=== PATIENT | male | born 1990 | race Caucasian/White ===

== ENCOUNTER 2020-09-23 17:27 | Emergency (ER) | payer OTHER, SELFPAY ==
[2020-09-23 17:35] VITALS: BP 148/86; PULSE 82; RESP 16; TEMP 36.8; O2SAT 100
--- NOTE | 2020-09-23 17:40 | ED.ABDPAIN ---
HPI - Abdominal Pain General Chief Complaint: Nausea/Vomiting/Diarrhea Stated Complaint: stomach problems Time Seen by Provider: 09/23/20 17:40 Source: patient and RN notes reviewed Mode of arrival: ambulatory Limitations: no limitations History of Present Illness HPI narrative: 30-year-old male presents to the [facility] with complaints of nausea vomiting diarrhea after eating at [employer] on Wednesday, 3 days ago. Has not been able to keep any food down. Able to do small sips of fluids. Patient states that he was able to drink a red bull prior to arrival Related Data Allergies Allergy/AdvReac Type Severity Reaction Status Date / Time No Known Allergies Allergy Unknown Verified 09/23/20 17:48 Review of Systems Review of Systems: Narrative: CONSTITUTIONAL: Denies fever, chills, or sweats. EYES: Denies visual changes, redness, or discharge. ENT: Denies rhinorrhea, congestion, sore throat, or otalgia. CARDIOVASCULAR: Denies chest pain, palpitations, or edema. RESPIRATORY: Denies cough or dyspnea. GASTROINTESTINAL: Denies abdominal pain. Reports nausea, vomiting, or diarrhea x3 days. GENITOURINARY: Denies dysuria or hematuria. SKIN: Denies rash or itching. MUSCULOSKELETAL: Denies back pain, joint pain, or myalgia. NEUROLOGIC: Denies headache, numbness, or weakness. PSYCHIATRIC: Denies anxiety or depression. All other systems reviewed are negative, except as documented in HPI. PMFSH Comments Patient denies any significant past medical or surgical history. At the time of my signature, I reviewed and agree with the nursing past medical, surgical, social, and family history. There is no relevant family history pertinent to the patient complaint. Exam Narrative: Exam Narrative: GENERAL: This is a well-nourished, well-developed patient, in no apparent distress. HEAD: normocephalic, atraumatic. EYES: PERRL. Sclera clear/white. Vision is grossly intact. EARS: External ears normal, auditory canals clear and without drainage, TMs normal without perforation. Hearing grossly intact. NOSE: External nose normal with no obvious nasal discharge, nares without redness, no rhinorrhea. THROAT: Mucous membranes moist, posterior pharynx clear. NECK: Neck supple, non-tender without lymphadenopathy, masses or thyromegaly. CARDIOVASCULAR: Regular rate and rhythm without murmurs, gallops, or rubs. RESPIRATORY: Clear to auscultation. Breath sounds equal bilaterally. No wheezes, rales, or rhonchi. GASTROINTESTINAL: Abdomen soft, non-tender, nondistended. Bowel sounds are hyper active. No hepato-splenomegaly, or palpable masses. No guarding. SKIN: warm, Dry, intact with no suspicious lesions or rash, good texture and turgor. NEURO: awake, alert, and oriented to person, place and time. There were no obvious focal neurologic abnormalities. EXTREMITIES: No joint tenderness, effusion, or edema noted. BACK: Nontender without deformity. Course Course Emergency Course: 1837, patient reevaluated, states he feels much better. Able to drink the entire bottle of water without issue. No vomiting. Vital Signs Vital signs: Vital Signs Temperature 98.3 F 09/23/20 17:35 Pulse Rate 82 09/23/20 17:35 Respiratory Rate 16 09/23/20 17:35 Blood Pressure 148/86 H 09/23/20 17:35 Pulse Oximetry 100 09/23/20 17:35 Temperature 98.3 F 09/23/20 17:35 Pulse Rate 82 09/23/20 17:35 Respiratory Rate 16 09/23/20 17:35 Blood Pressure 148/86 H 09/23/20 17:35 Pulse Oximetry 100 09/23/20 17:35 Reviewed, blood pressure mildly elevated. Discussed importance of following up with a primary care provider MDM - Abdominal Pain MDM Narrative Medical decision making narrative: Discharge instructions reviewed with patient, as well as provided in writing per nursing staff. The instructions also include specific and strict return/GO TO THE ER as well as f/u information. All questions have been answered, and the patient deny any further questions with discharge
[2020-09-23] MEDS: ONDANSETRON HCL ODT 4 MG TABLET 8 MG SUBLINGUAL (18:00)
[2020-09-24 20:31] LABS: SARS-CoV-2 RNA PCR Negative
== END 2020-09-23 18:45 | disposition home or self-care (01) ==
PROVIDERS: Emergency Provider Nurse Practitioner
DX: K21.9 Gastro-esophageal reflux disease without esophagitis (principal); Z20.822 Contact with and (suspected) exposure to COVID-19; J45.909 Unspecified asthma, uncomplicated
CPT/HCPCS: 99203; A9270; C9803; G0463; U0003; U0005

== ENCOUNTER 2021-01-31 08:12 | Emergency (ER) | payer OTHER, SELFPAY ==
[2021-01-31 08:23] VITALS: BP 130/79; PULSE 112; RESP 16; TEMP 37.2; O2SAT 98
--- NOTE | 2021-01-31 08:32 | ED.EYEPROB ---
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 Patient states 2 days ago he started with burning to his left eye and a bloodshot area to his left eye. Patient denies any vision problems. chief complaint: eye redness Related Data Home Medications Medication Instructions Recorded Confirmed No Home Medications 01/31/21 01/31/21 Allergies Allergy/AdvReac Type Severity Reaction Status Date / Time No Known Allergies Allergy Unknown Verified 01/31/21 08:37 Review of Systems Review of Systems: CONSTITUTIONAL: Denies fever, chills, or sweats. EYES: Denies visual changes, redness, or discharge. ENT: Denies rhinorrhea, congestion, sore throat, or otalgia. CARDIOVASCULAR: Denies chest pain, palpitations, or edema. RESPIRATORY: Denies cough or dyspnea. GASTROINTESTINAL: Denies abdominal pain, nausea, vomiting, or diarrhea. GENITOURINARY: Denies dysuria or hematuria. SKIN: Denies rash or itching. MUSCULOSKELETAL: Denies back pain, joint pain, or myalgia. NEUROLOGIC: Denies headache, numbness, or weakness. PSYCHIATRIC: Denies anxiety or depression. PMFSH Comments At time of signature, agree with nursing past medical, surgical, social and family history. There is no relevant family history pertinent to the presenting complaint Exam Narrative: GENERAL: Well-appearing, well-nourished, and in no acute distress. HEAD: Normocephalic, atraumatic. EYES: PERRLA and EOMI. ENT: Nares clear, no rhinorrhea or epistaxis. Mucous membranes moist. NECK: Supple. CHEST: Clear to auscultation. No respiratory distress. HEART: Regular rate and rhythm. No murmur heard. Normal peripheral pulses. ABDOMEN: Soft, nontender, nondistended, normal active bowel sounds. EXTREMITIES: Normal range of motion. No edema. SKIN: Warm, dry, no rash. NEURO: No focal deficits. Alert and oriented x3. Carlita Coma Scale Eye Opening: Spontaneous 4 Carlita Coma Scale Motor: Obeys Commands 6 Carlita Coma Scale Verbal: Oriented 5 Carlita Coma Scale Total 15 Eyes: Eyelids: eyelids normal (Bilateral upper and lower eyelids normal) Conjunctivae: conjunctival abnormality and other (Redness to outer area of the left conjunctive) Sclera: sclerae normal Cornea: corneas normal Pupils: Equal, round and reactive pupils present EOM: EOMs intact bilaterally Direct Ophthalmoscopy: normal light reflex Eyes/upper lids images: 1. REDNESS TO EYE Neck: Neck: normal visual inspection and no lymphadenopathy Course Vital Signs Vital signs: Vital Signs Temperature 37.2 C 01/31/21 08:23 Pulse Rate 112 H 01/31/21 08:23 Respiratory Rate 16 01/31/21 08:23 Blood Pressure 130/79 01/31/21 08:23 Pulse Oximetry 98 01/31/21 08:23 Temperature 37.2 C 01/31/21 08:23 Pulse Rate 112 H 01/31/21 08:23 Respiratory Rate 16 01/31/21 08:23 Blood Pressure 130/79 01/31/21 08:23 Pulse Oximetry 98 01/31/21 08:23 Please MARYLU schedule a followup visit with your personal physician for further evaluation and treatment. Including recheck and discussion of your blood pressure. If your symptoms persist, change or worsen significantly before you can contact your personal physician then please, without delay, go to the emergency department for further evaluation Discussed with patient hypertension. Today's blood pressure higher than recommended range. Discussed importance of follow -up with PCP and CV events related to HTN. Currently patient denies headache, vision changes, CP or shortness of breath. Critical dx considered and discussed with pt. Educated patient on red flag s/s and to go to ED if s/s occur. Discussed with
== END 2021-01-31 09:22 | disposition home or self-care (01) ==
PROVIDERS: Emergency Provider Nurse Practitioner Family
DX: S05.02XA Injury of conjunctiva and corneal abrasion without foreign body, left eye, initial encounter (principal); X58.XXXA Exposure to other specified factors, initial encounter; Y99.0 Civilian activity done for income or pay
CPT/HCPCS: 99213; A9270; G0463

== ENCOUNTER 2021-11-08 16:53 | Emergency (ER) | payer OTHER, SELFPAY ==
[2021-11-08 17:05] VITALS: BP 142/82; PULSE 106; RESP 20; TEMP 37.1; O2SAT 96
--- NOTE | 2021-11-08 17:23 | ED.URI ---
HPI - URI/Sore Throat General Chief Complaint: Upper Respiratory Infection Stated Complaint: cough nausea Time Seen by Provider: 11/08/21 17:24 Source: patient and RN notes reviewed Mode of arrival: ambulatory Limitations: no limitations History of Present Illness HPI Narrative: 31-year-old male presents with concern for 2-day history of nasal congestion, cough, nasal drainage, nausea, vomiting. Reports his children have had similar illness for about 6 days and have all tested negative for COVID. He denies any [id number] intervention. Denies shortness of breath. Reports fever yesterday. MD elicited complaint: cough and other Related Data Allergies Allergy/AdvReac Type Severity Reaction Status Date / Time No Known Allergies Allergy Unknown Verified 01/31/21 08:37 Review of Systems Review of Systems: CONSTITUTIONAL: Reports malaise. Denies chills, sweats, or fever. EYES: Denies visual changes, redness, or discharge. ENT: Reports rhinorrhea, congestion, mild sore throat. Denies sinus pain, otalgia CARDIOVASCULAR: Denies chest pain, palpitations, or edema. RESPIRATORY: Reports cough. Denies dyspnea. GASTROINTESTINAL: Denies abdominal pain, diarrhea. Reports nausea and vomiting SKIN: Denies rash or itching. MUSCULOSKELETAL: Denies myalgia. NEUROLOGIC: Denies headache. All systems reviewed & are unremarkable except as noted in HPI and below PMFSH Comments At time of signature, agree with nursing past medical, surgical, social and family history. There is no relevant family history pertinent to the presenting complaint Exam Narrative: GENERAL: Nontender and in no acute distress. HEAD: Normocephalic EYES: PERRLA, conjunctivae clear ENT: Nares clear, turbinates edematous and erythematous, clear discharge. Mucous membranes moist. TM pearly galicia with dull light reflex bilaterally; no tragal tenderness. Oropharynx not erythematous without lesions. Tonsils not enlarged and without exudate, no drooling, no hoarseness, no trismus, uvula midline. NECK: Supple. No lymphadenopathy CHEST: Clear to auscultation, breath sounds equal. No wheezing, rhonchi, rales, or stridor. No respiratory distress, speaks in full sentences. HEART: Regular rate and rhythm. No murmur heard. ABD: Soft, NABS, 1/10 tenderness in the right lower quadrant SKIN: Warm, dry, no rash. NEURO: Alert and oriented x3. PSYCH: Normal mood and affect Course Course Emergency Course: Discussed monitoring patient's right lower abdominal tenderness, advised to go to emergency room if symptoms worsen, he gets a fever, or vomiting becomes persistent. Patient is aware of diagnosis, understands and agrees to treatment plan. Anticipatory guidance given. Patient agrees to follow-up as directed and is aware of reasons to seek care at the emergency department. Portions of this record may have been created with voice recognition software Level of Care: Express Care Visit Vital Signs Vital signs: Vital Signs Temperature 98.7 F 11/08/21 17:05 Pulse Rate 106 H 11/08/21 17:05 Respiratory Rate 20 11/08/21 17:05 Blood Pressure 142/82 H 11/08/21 17:05 Pulse Oximetry 96 11/08/21 17:05 Oxygen Delivery Room Air 11/08/21 17:05 Temperature 98.7 F 11/08/21 17:05 Pulse Rate 106 H 11/08/21 17:05 Respiratory Rate 20 11/08/21 17:05 Blood Pressure 142/82 H 11/08/21 17:05 Pulse Oximetry 96 11/08/21 17:05 Oxygen Delivery Room Air 11/08/21 17:05 Reviewed. MDM - URI/Sore Throat MDM Narrative Medical decision making narrative: Differential diagnosis considered: Arango virus, strep pharyngitis, allergic rhinitis, upper respiratory tract infection, sinusitis, rhinosinusitis, nasopharyngitis. viral pharyngitis, otitis media, otitis externa, pneumonia, bronchitis, viral cough syndrome, viral syndrome, and influenza. Exam findings show no acute concerns or changes; patient is non-toxic appearing and is in no distress. Patient is appropriate for outpatient
== END 2021-11-08 18:00 | disposition home or self-care (01) ==
PROVIDERS: Emergency Provider Nurse Practitioner
DX: B34.9 Viral infection, unspecified (principal)
CPT/HCPCS: 99213; G0463

== ENCOUNTER 2022-10-29 10:28 | Emergency (ER) | payer OTHER, SELFPAY ==
--- NOTE | ~2022-10-29 | XR_ITS ---
PA, oblique, and lateral views of the left fifth finger CLINICAL HISTORY: Trauma FINDINGS: No acute fracture or dislocation seen. Joint spaces are preserved. Osseous alignment is wilton tomic. Soft tissues are unremarkable. IMPRESSION: Unremarkable exam. Reviewed, dictated and finalized at location . IMPRESSION: Unremarkable exam.
[2022-10-29 10:32] VITALS: BP 132/85; PULSE 69; RESP 20; TEMP 36.6; O2SAT 100
--- NOTE | 2022-10-29 10:32 | ED.UPPEXIN ---
HPI - Extremity Injury (Upper) General Chief Complaint: Extremity Injury, Upper Stated Complaint: left pinky injury Time Seen by Provider: 10/29/22 10:32 Source: patient and RN notes reviewed History of Present Illness HPI narrative: Patient is a 32-year-old male who presents to urgent care stating that he smashed his left pinky finger with a crowbar yesterday while at work. Patient states that it swelled up instantly. Also reports of some redness around the nail bed. No other acute complaints or injuries. No acute distress noted. Patient of care. Some parts of this dictation were generated by voice recognition software and may contain typographical and/or grammatical inaccuracies. Related Data Allergies Allergy/AdvReac Type Severity Reaction Status Date / Time No Known Allergies Allergy Verified 10/29/22 10:38 Review of Systems Review of Systems: CONSTITUTIONAL: Denies fever, chills, or sweats. EYES: Denies visual changes, redness, or discharge. ENT: Denies rhinorrhea, congestion, sore throat, or otalgia. CARDIOVASCULAR: Denies chest pain, palpitations, or edema. RESPIRATORY: Denies cough or dyspnea. GASTROINTESTINAL: Denies abdominal pain, nausea, vomiting, or diarrhea. GENITOURINARY: Denies dysuria or hematuria. SKIN: Denies rash or itching. MUSCULOSKELETAL: Reports of swelling and pain to the left pinky finger NEUROLOGIC: Denies headache, numbness, or weakness. All other systems reviewed are negative, except as documented in HPI. PMFSH Comments At the time of my signature, I reviewed and agree with the nursing past medical, surgical, social, and family history. There is no relevant family history pertinent to the patient complaint. Exam Narrative: GENERAL: This is a well-nourished, well-developed patient, in no apparent distress. HEAD: normocephalic, atraumatic. EYES: PERRL. Sclera clear/white. Vision is grossly intact. EARS: External ears normal NOSE: External nose normal with no obvious nasal discharge, nares without redness, no rhinorrhea. THROAT: Mucous membranes moist NECK: Neck supple SKIN: Erythema surrounding the nail bed of the left 5th digit, consistent with paronychia. Warm, intact with no suspicious lesions or rash, good texture and turgor. NEURO: awake, alert, and oriented to person, place and time. There were no obvious focal neurologic abnormalities. EXTREMITIES: Mild edema noted to the PIP of the left 5th digit with moderate tenderness. No ecchymosis. Range of motion not tested due to pain. Positive strong left radial pulse with capillary refill less than 2 seconds. Course Course Level of Care: Express Care Visit Vital Signs Vital signs: Vital Signs Temperature 97.8 F 10/29/22 10:32 Pulse Rate 69 10/29/22 10:32 Respiratory Rate 20 10/29/22 10:32 Blood Pressure 132/85 10/29/22 10:32 Pulse Oximetry 100 10/29/22 10:32 Oxygen Delivery Room Air 10/29/22 10:32 Temperature 97.8 F 10/29/22 10:32 Pulse Rate 69 10/29/22 10:32 Respiratory Rate 20 10/29/22 10:32 Blood Pressure 132/85 10/29/22 10:32 Pulse Oximetry 100 10/29/22 10:32 Oxygen Delivery Room Air 10/29/22 10:32 Reviewed MDM - Extremity Injury (Upper) MDM Narrative Medical decision making narrative: Reviewed x-ray results with the patient. He is aware that x-ray was negative for fracture. However, you do have an infection surrounding the nail bed. Advised patient to complete the oral antibiotic regimen as prescribed. Where the foam metal splint for protection and support. Our facility is unable to put you on any restrictions at work. If such restrictions or limitations are required he will need to follow-up with workmen's health or your primary care doctor. Follow-up with your PCP within 2-5 days or for worsening symptoms or failure to improve. Differential Diagnosis Differential diagnosis: Likely sprain and strain of wrist, fracture of wrist, finger sprain, dislocation of fin
== END 2022-10-29 11:11 | disposition home or self-care (01) ==
PROVIDERS: Emergency Provider Nurse Practitioner Family
DX: L03.012 Cellulitis of left finger (principal); S60.052A Contusion of left little finger without damage to nail, initial encounter; X58.XXXA Exposure to other specified factors, initial encounter; Y99.0 Civilian activity done for income or pay
CPT/HCPCS: 29130; 73140; 99213; G0463

== ENCOUNTER 2022-11-04 16:39 | Emergency (ER) | payer OTHER, SELFPAY ==
[2022-11-04 16:49] VITALS: BP 149/79; PULSE 95; RESP 18; TEMP 36.7; O2SAT 98
--- NOTE | 2022-11-04 16:51 | ED.NAVMDI ---
HPI - Nausea/Vomiting/Diarrhea General Chief complaint: Upper Respiratory Infection Stated complaint: nausea w/ blood Time Seen by Provider: 11/04/22 17:06 Source: patient and RN notes reviewed Mode of arrival: ambulatory Limitations: no limitations History of Present Illness HPI Narrative: 32-year-old male presents with concern for one-week history of nausea and vomiting. He reports occasionally he has a chunk of blood in his vomit. He reports he has also had nasal congestion and rhinorrhea since the symptoms started. He denies fever, aches, chills, sweats, abdominal pain. He reports he has had problems like this for about a year, however he did not have the nasal congestion rhinorrhea that time. He reports he has been on and off acid reducers which helped temporarily. He has never seen a GI doctor. He reports he is only vomiting when he tries to eat food, he can drink water without vomiting. MD elicited complaint: nausea and vomiting Related Data Home Medications Medication Instructions Recorded Confirmed amoxicillin 875 mg-potassium 1 tablet PO DAILY 11/04/22 11/04/22 clavulanate 125 mg tablet Allergies Allergy/AdvReac Type Severity Reaction Status Date / Time No Known Allergies Allergy Unknown Verified 11/04/22 17:39 Review of Systems Review of Systems: CONSTITUTIONAL: Denies malaise, chills, sweats, or fever. ENT: Reports rhinorrhea, congestion. Denies sinus pain, otalgia or sore throat. CARDIOVASCULAR: Denies chest pain, palpitations, or edema. RESPIRATORY: Denies cough or dyspnea. GASTROINTESTINAL: Denies abdominal pain, diarrhea, bloody, or mucous stools. Reports nausea and vomiting with occasional bright red blood in his vomit GENITOURINARY: Denies dysuria or hematuria. MUSCULOSKELETAL: Denies myalgia. NEUROLOGIC: Denies headache. All systems reviewed & are unremarkable except as noted in HPI and below PMFSH Comments At time of signature, agree with nursing past medical, surgical, social and family history. There is no relevant family history pertinent to the presenting complaint Exam Narrative: GENERAL: Well-appearing, well-nourished, and in no acute distress. HEAD: Normocephalic, atraumatic. EYES: PERRLA, conjunctivae clear, and EOMI. ENT: Nares clear, clear discharge. Mucous membranes moist. Oropharynx without edema, erythema, or lesions. Tonsils not enlarged and without exudate. NECK: Supple. No lymphadenopathy CHEST: Speaks in full sentences. No respiratory distress. HEART: Regular rate and rhythm. ABDOMEN: Soft, flat, nondistended, nontender. No guarding, rebound tenderness, or rigidity. No pulsatile masses. Bowel sounds present in all four quadrants. No organomegaly. Negative Smith?s sign. No periumbilical tenderness. No Supra public tenderness or distension. SKIN: Warm, dry, no rash. NEURO: Alert and oriented x3. PSYCH: Normal mood and affect Course Course Emergency Course: Patient is aware of diagnosis, understands and agrees to treatment plan. Anticipatory guidance given. Patient agrees to follow-up as directed and is aware of reasons to seek care at the emergency department. Portions of this record may have been created with voice recognition software Level of Care: Express Care Visit Vital Signs Vital signs: Reviewed. MDM - Nausea/Vomiting/Diarrhea MDM Narrative Medical decision making narrative: Exam findings show no acute concerns or changes; patient is non-toxic appearing and is in no distress. Patient is appropriate for outpatient treatment and follow-up. Critical Care Time Critical Care Time Critical Care Time: No Discharge Plan Discharge Clinical Impression: Nausea & vomiting Patient Disposition: Home, Self-Care Condition: Stable Instructions: Diet for Stomach Ulcers and Gastritis (ED), Acute Nausea and Vomiting (ED) Additional Instructions: Your rapid flu, COVID, strep tests are negative. Stay hydrated. Take small sips of fluid con
== END 2022-11-04 17:46 | disposition home or self-care (01) ==
PROVIDERS: Emergency Provider Nurse Practitioner
DX: R11.2 Nausea with vomiting, unspecified (principal); Z20.822 Contact with and (suspected) exposure to COVID-19; J45.909 Unspecified asthma, uncomplicated
CPT/HCPCS: 87081; 87426; 87804; 87880; 99213; C9803; G0463

== ENCOUNTER 2023-05-23 12:45 | Emergency (ER) | payer OTHER, SELFPAY ==
[2023-05-23 13:14] VITALS: BP 107/87; PULSE 98; RESP 20; TEMP 36.7; O2SAT 97
--- NOTE | 2023-05-23 13:18 | ED.URI ---
HPI - URI/Sore Throat General Chief Complaint: Upper Respiratory Infection Stated Complaint: vomiting for 3 days,cold History of Present Illness HPI Narrative: patient presents with cough nausea body aches and malaise. no shortness of breath and no chest pain. Related Data Home Medications Medication Instructions Recorded Confirmed albuterol sulfate 90 mcg/actuation 2 puff inhalation QID PRN sob 05/23/23 05/23/23 aerosol inhaler Allergies Allergy/AdvReac Type Severity Reaction Status Date / Time No Known Allergies Allergy Unknown Verified 05/23/23 13:11 Review of Systems Review of Systems: CONSTITUTIONAL: Denies chills, or sweats. Reports fever and generalized body aches EYES: Denies visual changes, redness, or discharge. ENT: Denies otalgia. Reports nasal congestion runny nose and sore throat CARDIOVASCULAR: Denies chest pain, palpitations, or edema. RESPIRATORY: Denies dyspnea. Reports occasional cough GASTROINTESTINAL: Denies abdominal pain, nausea, vomiting, or diarrhea. GENITOURINARY: Denies dysuria or hematuria. SKIN: Denies rash or itching. MUSCULOSKELETAL: Denies back pain, joint pain, or myalgia. Reports generalized body aches NEUROLOGIC: Denies headache, numbness, or weakness. PSYCHIATRIC: Denies anxiety or depression. PMFSH Comments At time of signature, agree with nursing past medical, surgical, social and family history. There is no relevant family history pertinent to the presenting complaint Exam Narrative: The patient is a well-developed, well-nourished in no acute distress. SKIN: Skin is warm and dry without erythema, swelling or exudate. There is good turgor. No tenting. HEAD: Atraumatic. Normocephalic. No temporal or scalp tenderness. EYES: Moist and bright. Sclera and conjunctivae normal. No discharge. PERRLA. Extraocular motions intact. Gross visual acuity intact. EARS: Pinna is normal shape and contour. Clear external auditory canals. TM pearly silver with good cone of light, no erythema or suppuration. Bilateral cerumen noted no gross hearing deficit. NOSE: pink, moist mucosa with good air movement. Clear rhinorrhea without nasal flaring. Septum midline. Mouth: moist mucous membranes. THROAT; mild erythema noted to posterior oropharynx with moderate postnasal drainage. Without exudate or ulceration.. Uvula midline. Normal movement of soft palate. NECK: Supple and nontender with full range of motion without discomfort. No meningeal signs. LUNGS: Equal and bilateral breath sounds without wheezes, rales or rhonchi. CHEST: The chest wall is without retractions or use of accessory muscles. HEART: Has a regular rate and rhythm without murmur, gallops, click or rub. ABDOMEN: Soft, nontender with positive active bowel sounds. No rebound tenderness. EXTREMITIES: Without cyanosis, clubbing or edema. Equal 2+ distal pulses and 2 second capillary refill noted. NEUROLOGIC: alert, active, . The patient moves all extremities with normal muscle strength. Normal muscle tone is noted. Normal coordination is noted. NO focal neurological findings noted. Course Course Level of Care: Express Care Visit Discharge Plan Discharge Clinical Impression: COVID-19 Patient Disposition: Home, Self-Care Condition: Stable Additional Instructions: Stay home - protect others by not exposing them. You are a public health risk if you have the flu. Don't go into public unless necessary. - Wash your hands, cover your cough/sneeze. - Stay hydrated - sip on things frequently. Water, tea, diluted lemon juice, and bone broth are all good choices. Eat if it sounds good, if not, just keep drinking - Vitamin C, Zinc, Echinacea may help in moderation. - Honey is as good as Robitussin for a cough, and has less side effects (do not give honey to babies under 2) - Tamiflu shortens influenza by an average of 23 hours (in a 7-10 day illness) and is very expensive. In [place] they don't use it anymore because it
== END 2023-05-23 13:45 | disposition home or self-care (01) ==
PROVIDERS: Emergency Provider Nurse Practitioner Family
DX: U07.1 COVID-19 (principal); J45.909 Unspecified asthma, uncomplicated
CPT/HCPCS: 87081; 87426; 87804; 87880; 99213; C9803; G0463

== ENCOUNTER 2024-04-09 16:16 | Emergency (ER) | payer OTHER, SELFPAY ==
[2024-04-09 16:20] VITALS: BP 131/80; PULSE 94; RESP 20; TEMP 36.8; O2SAT 98
--- NOTE | 2024-04-09 16:24 | ED_ITS ---
HPI - URI/Sore Throat General Chief Complaint: Upper Respiratory Infection Stated Complaint: Fever/sinus/cough Time Seen by Provider: 04/09/24 16:25 Source: patient, RN notes reviewed and old records reviewed Mode of arrival: ambulatory Limitations: no limitations History of Present Illness HPI Narrative: 34 year old male presents to [facility] care with complaints of stuffy nose, cough for 3-4 days and awoke last night at 0300 with 103F fever and had emesis X1, patient states he took his Motrin 800mg and went back to bed and awoke in a pool of sweat. Patient reports that he continues to have nasal congestion with sinus pressure and cough with no body aches. Patient reports that there have been several people out of work ill with respiratory infections and pneumonia. MD elicited complaint: fever, cough, rhinorrhea and nasal congestion Pertinent past history: asthma Onset (ago): day(s) (4 with increased symptoms since last night) Severity: moderate Description of mucous: clear Able to tolerate fluids by mouth: Yes Treatments prior to arrival: ibuprofen Related Data Home Medications Medication Instructions Recorded Confirmed albuterol sulfate 90 mcg/actuation 2 puff inhalation QID PRN sob 05/23/23 05/23/23 aerosol inhaler bupropion HCl 300 mg 24 hr tablet, mg PO 04/09/24 extended release cariprazine 1.5 mg capsule mg 04/09/24 (Vraylar) hydroxyzine pamoate 100 mg capsule mg 04/09/24 lamotrigine 200 mg tablet mg 04/09/24 mirtazapine 15 mg tablet mg 04/09/24 naltrexone 50 mg tablet mg 04/09/24 omeprazole 40 mg capsule,delayed mg 04/09/24 release pantoprazole 40 mg tablet,delayed mg PO 04/09/24 release pramipexole 0.5 mg tablet mg 04/09/24 trazodone 300 mg tablet mg 04/09/24 Allergies Allergy/AdvReac Type Severity Reaction Status Date / Time No Known Allergies Allergy Unknown Verified 05/23/23 13:11 Review of Systems Review of Systems: CONSTITUTIONAL: Reports malaise, chills, sweats, or fever. EYES: Denies visual changes, redness, or discharge. ENT: Reports rhinorrhea, congestion, sinus pain and pressure, no otalgia and mild sore throat. CARDIOVASCULAR: Denies chest pain, palpitations, or edema. RESPIRATORY: Reports cough.? Denies acute dyspnea. GASTROINTESTINAL: Denies abdominal pain, nausea, one episode of vomiting early this morning, no diarrhea SKIN: Denies rash or itching. MUSCULOSKELETAL: Denies myalgia. NEUROLOGIC: Denies headache. 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 There is no relevant family history pertinent to the presenting complaint Exam Narrative: GENERAL: Well-appearing, well-nourished, and in no acute distress. HEAD: Normocephalic EYES: PERRLA, conjunctivae clear ENT: Nares clear, turbinates edematous and erythematous, clear discharge. Mucous membranes moist. TM pearly galicia with dull light reflex bilaterally; no tragal tenderness. Oropharynx erythematous without lesions. Tonsils not enlarged and without exudate, no drooling, no hoarseness, no trismus, uvula midline. NECK: Supple. No lymphadenopathy CHEST: Clear to auscultation, breath sounds equal. No wheezing, rhonchi, rales, or stridor. No respiratory distress, speaks in full sentences,cough present SAO2 98% on room air HEART: Regular rate and rhythm. No murmur heard. SKIN: Warm, dry, no rash. NEURO: Alert and oriented x3. PSYCH: Normal mood and affect Course Course Emergency Course: Patient is aware of diagnosis, understands and agrees to treatment plan.? Anticipatory guidance given.? Patient agrees to follow-up as directed and is aware of reasons to seek care at the emergency department. Portions of this record may have been created with voice recognition software Level of Care: Express Care Visit Vital Signs Vital signs: Vital Signs Temperature 36.8 C 04/09/24 16:20 Pulse Rate 94 04/09/24 16:20 Respiratory Rate 20 04/09/24 16:20 Blood Pressure 131/80 04/09/24 16:20 Pulse Oximetry 98 04/09/24 16:20 Oxygen Delivery Room Air 04/09/24 16:20 Temperature 36.8 C 04/09/24 16:20 Pulse Rate 94 04/09/24 16:20 Respiratory Rate 20 04/09/24 16:20 Blood Pressure 131/80 04/09/24 16:20 Pulse Oximetry 98 04/09/24 16:20 Oxygen Delivery Room Air 04/09/24 16:20 Reviewed MDM - URI/Sore Throat MDM Narrative Medical decision making narrative: Differential diagnosis considered: Arango virus, strep pharyngitis, allergic rhinitis, upper respiratory tract infection, sinusitis, rhinosinusitis, nasopharyngitis. viral pharyngitis, otitis media, otitis externa, pneumonia, bronchitis, viral cough syndrome, viral syndrome, and influenza.? Exam findings show no acute concerns or changes; patient is non-toxic appearing and is in no distress.? Patient is appropriate for outpatient treatment and follow-up. Differential Diagnosis Differential diagnosis: Likely upper respiratory infection, sinusitis, viral infection, bronchitis and other (acute cough) Medical Records Attestation: I reviewed the patient's medical records. Lab Data Attestation: I reviewed the patient's lab results. Critical Care Time Critical Care Time Critical Care Time: No Discharge Plan Discharge Clinical Impression: Upper respiratory infection with cough and congestion Patient Disposition: Home, Self-Care Condition: Stable Instructions: Antibiotic Form, Upper Respiratory Infection (ED), Acute Cough (ED) Additional Instructions: Increase fluids especially juices and water Fmrl-krv-fqxydgi cough and cold medicine of your choice for your symptoms Zyrtec Claritin or Magalie daily Cough tablets as directed for cough--do not bite, chew or suck on--swallow whole Continue your inhaler/nebulizer as directed Steroids as directed--take with food heat to the face 20-30 minutes 4-6 times a day for pain Salt water gargles, throat lozenges or throat sprays as desired Antibiotic as directed--finished the medication If your symptoms persist, change or worsen significantly before you can contact your personal physician then please, without delay, go to the emergency department for further evaluation. Follow-up with PCP in 7-10 days or sooner if needed Follow up with PCP soon in regards to your blood pressure which is elevated above threshold for referral. Blood pressure above 120/80 may indicate pre- hypertension.131/80 Prescriptions: New prednisone 20 mg tablet 20 mg PO BID Qty: 10 0RF azithromycin 250 mg tablet See Rx Instructions .ROUTE .COMPLEX Qty: 6 0RF Rx Instructions: For 250 mg dose pack: take 500 mg today (day 1), then 250 mg for 4 days (days 2-5) No Action albuterol sulfate 90 mcg/actuation Hfa Aerosol Inhaler 2 puff INHALATION QID PRN (Reason: sob) hydroxyzine pamoate 100 mg capsule lamotrigine 200 mg tablet naltrexone 50 mg tablet omeprazole 40 mg capsule,delayed release(DR/EC) pramipexole 0.5 mg tablet pantoprazole 40 mg tablet,delayed release (DR/EC) PO trazodone 300 mg tablet mirtazapine 15 mg tablet bupropion HCl 300 mg tablet extended release 24 hr PO Vraylar 1.5 mg capsule Follow-up/Referrals: PHYSICIAN,DRAPERY ROD ASSEMBLER [Primary Care Provider] - Time of Disposition: 16:43 Quality Ipava Coma Scale Eyes: Open Verbal: Oriented and Alert Motor: Follows Commands Ipava Coma Total Score: 15
== END 2024-04-09 16:50 | disposition home or self-care (01) ==
PROVIDERS: Emergency Provider Registered Nurse
DX: J06.9 Acute upper respiratory infection, unspecified (principal); F17.210 Nicotine dependence, cigarettes, uncomplicated; Z79.899 Other long term (current) drug therapy
CPT/HCPCS: 99213; G0463

== ENCOUNTER 2024-06-03 11:02 | Emergency (ER) | payer OTHER, SELFPAY ==
[2024-06-03 11:12] VITALS: BP 155/87; PULSE 105; RESP 18; TEMP 36.9; O2SAT 98
--- NOTE | 2024-06-03 11:16 | ED.NAVMDI ---
HPI - Nausea/Vomiting/Diarrhea General Chief complaint: Nausea/Vomiting/Diarrhea Stated complaint: Nausea/Diarrhea/Vomiting/Fever Time Seen by Provider: 06/03/24 11:16 Source: patient Mode of arrival: ambulatory Limitations: no limitations History of Present Illness HPI Narrative: 34-year-old male presents with complaint of cough, nasal congestion, sore throat, nausea vomiting and diarrhea for the past 2-3 days. Reports fever yesterday. Afebrile today. Able to keep down water. Needs work excuse. All systems reviewed and negative except as noted above. Related Data Home Medications ?Medication ?Instructions ?Recorded ?Confirmed ?Last Taken ?Type albuterol sulfate 90 mcg/actuation 2 puff inhalation QID PRN sob 05/23/23 05/23/23 Unknown History aerosol inhaler naltrexone 50 mg tablet mg 04/09/24 Unknown History Allergies Allergy/AdvReac Type Severity Reaction Status Date / Time No Known Allergies Allergy Unknown Verified 06/03/24 11:16 Review of Systems Review of Systems: CONSTITUTIONAL: reports fever, chills, or sweats. EYES: Denies visual changes, redness, or discharge. ENT: reports rhinorrhea, congestion, sore throat, or otalgia. CARDIOVASCULAR: Denies chest pain, palpitations, or edema. RESPIRATORY: reports cough. Denies dyspnea. GASTROINTESTINAL: Denies abdominal pain . Reports nausea, vomiting, or diarrhea. GENITOURINARY: Denies dysuria or hematuria. SKIN: Denies rash or itching. MUSCULOSKELETAL: Denies back pain, joint pain, or myalgia. NEUROLOGIC: Denies headache, numbness, or weakness. PSYCHIATRIC: Denies anxiety or depression. All other systems reviewed are negative, except as documented in HPI. 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 There is no relevant family history pertinent to the presenting complaint. Exam Narrative: GENERAL: This is a well-nourished, well-developed patient, patient ill-appearing but no acute distress HEAD: normocephalic, atraumatic. EYES: PERRL. Sclera clear/white. Vision is grossly intact. EARS: External ears normal, auditory canals clear and without drainage, TMs normal without perforation. Hearing grossly intact. NOSE: External nose normal with mild congestion, clear nasal drainage, erythema to bilateral nares THROAT: Mucous membranes moist, mild erythema with clear postnasal drainage. No swelling or exudates. NECK: Neck supple, non-tender without lymphadenopathy, masses or thyromegaly. CARDIOVASCULAR: Regular rate and rhythm without murmurs, gallops, or rubs. RESPIRATORY: Clear to auscultation. Breath sounds equal bilaterally. No wheezes, rales, or rhonchi. GASTROINTESTINAL: Abdomen soft, non-tender, nondistended. Bowel sounds are active. No hepato-splenomegaly, or palpable masses. No guarding. SKIN: warm, Dry, intact with no suspicious lesions or rash, good texture and turgor. NEURO: awake, alert, and oriented to person, place and time. There were no obvious focal neurologic abnormalities. EXTREMITIES: No joint tenderness, effusion, or edema noted. Course Course Level of Care: Express Care Visit Vital Signs Vital signs: Vital Signs Temperature 36.9 C 06/03/24 11:12 Pulse Rate 105 H 06/03/24 11:12 Respiratory Rate 18 06/03/24 11:12 Blood Pressure 155/87 H 06/03/24 11:12 Pulse Oximetry 98 06/03/24 11:12 Oxygen Delivery Room Air 06/03/24 11:12 Temperature 36.9 C 06/03/24 11:12 Pulse Rate 105 H 06/03/24 11:12 Respiratory Rate 18 06/03/24 11:12 Blood Pressure 155/87 H 06/03/24 11:12 Pulse Oximetry 98 06/03/24 11:12 Oxygen Delivery Room Air 06/03/24 11:12 Reviewed MDM - Nausea/Vomiting/Diarrhea MDM Narrative Medical decision making narrative: negative COVID and influenza. Lungs clear to auscultation, patient nontoxic. Recommend he take rdag-hka-fxrjtyu medications to treat viral symptoms. Will prescribe Zofran to treat nausea. Patient is aware of diagnosis, understands and agrees to treatment plan. Anticipatory guidance given. Patient agrees to follow-up as directed and is aware of reasons to seek care at the emergency department. Portions of this record may have been created with voice recognition software Differential Diagnosis Differential diagnosis: Likely gastroenteritis and other ( Influenza, COVID, viral syndrome) Lab Data Labs: Lab Results 06/03/24 Range/Units 11:40 POC Influenza A Ag Negative (Negative) POC Influenza B Ag Negative (Negative) POC SARS CoV-2 Ag Negative (Negative) Discharge Plan Discharge Clinical Impression: Viral upper respiratory tract infection with cough Patient Disposition: Home, Self-Care Condition: Stable Instructions: Viral Syndrome (ED) Additional Instructions: your COVID and influenza test were negative today. Your symptoms are viral and may last 10-14 days. Taking httl-fxt-wvedqzl medication to treat her symptoms such as DayQuil NyQuil cold and flu. Drink at least 64 oz of water a day. Follow-up with your primary care physician if symptoms are not improving. Patient Language: Tristanian Prescriptions: New ondansetron 4 mg tablet,disintegrating 4 mg PO Q8H PRN (Reason: nausea and vomiting) Qty: 12 0RF No Action albuterol sulfate 90 mcg/actuation Hfa Aerosol Inhaler 2 puff INHALATION QID PRN (Reason: sob) naltrexone 50 mg tablet Follow-up/Referrals: UNKNOWN,DOCTOR [Primary Care Provider] - Stand Alone Forms: Work/School Release IP Time of Disposition: 11:59
[2024-06-03 12:00] LABS: EDCOVIDSCREEN Negative (Negative); EDINFLUASCREEN Negative (Negative); EDINFLUBSCREEN Negative (Negative)
--- OUTSIDE RECORDS SUMMARY | 2024-06-10 14:56 | XMS_ITS | Encounter Summary ---
Author Organization [facility] Address [address] [place] [address] Phone Care Team Providers Care Telephone Clerk Name Role Phone Jimmy Mccormack PAC Primary Care Provider U navailable Reason for Visit * Reason Onset Date Comments Exposure to STD 12/26/2021 Encounter Details Date Type Department Care Team (Late st Contact Info) Description 12/26/2021 Telephone [facility] [address] [place] [address] Jimmy Mccormack, GEETHA Exposure to STD Social History Tobacco Use Types Packs/Day Years Used Date Smoking Tobacco: Every Day Cigarettes Smokeless Tobacco: Current Chew Alcohol Use Standard Drinks/Week Comments Yes 6 (1 standard drink = 0.6 oz pur e alcohol) PHQ-2 Answer Date Recorded Total Score - Questions 1-9 0 11/2020 Sexually Active Control Partners Comments Yes Male Condom Sex and Gender Information Value Date Recorded Sex Assigned at Not on file Legal Sex Male 11:31 PM CDT Gender Identity Not on file Sexual Orientation Not on file documented as of this encounter Miscellaneous Notes * Telephone Encounter - Jodi Jarrett RN - 12/26/2021 2:08 PM CDT Called patient to inform he will need to establish with a new provider for [facility], recommend prompt care for evaluation and testing. Patient verbalized understanding and will go to prompt care. * Telephone Encounter - Mac Pérez MD - 12/26/2021 1:40 PM CDT This patient saw Jimmy Mccormack on 2 occasions for problem-only visits. He has never had a complete well exam. Since he is not established with any clinician in the office, he is going to need to schedule a new patient intake exam. If he needs the testing done more urgently, I would recommend that he proceed to prompt Care where evaluation and testing can be completed more expeditiously. * Telephone Encounter - Bhumi Andersen RN - 12/26/2021 1:21 PM CDT S. Patient calling to request testing for chlamydia B. recently tested positive and being treated for chlamydia A. Denies any symptoms or fever R. Would like to have full STD panel ordered. Please advise if willing to order testing or has to be evaluated or any further recommendations Pharmacy, allergies, and med list reviewed Routing to Dr Pérez and RN team since PCP no longer with office documented in this encounter Plan of Treatment Not on file documented as of this encounter Visit Diagnoses Not on filedocumented in this encounter Care Teams Telephone Clerk Relationship Specialty Start Date End Date Jimmy Mccormack PAC PCP - General Physician Replanting Machine Operator 05/12/21 03/22/22 documented as of this encounter
--- OUTSIDE RECORDS SUMMARY | 2024-06-10 14:56 | XMS_ITS | Encounter Summary ---
Author Organization [facility] Address [address] [place] [address] Phone Care Team Providers Care Hydraulic Jack Adjuster Name Role Phone Jimmy Mccormack PAC Primary Care Provider U navailable Reason for Visit * Reason Onset Date Comments Results 05/13/2021 chest x-ray Encounter Details Date Type Department Care Team (Late st Contact Info) Description 05/13/2021 [facility]phone [facility] [place] [address] [place] [address] Jimmy Mccormack, GEETHA Results (chest x-ray) Social History Tobacco Use Types Packs/Day Years [...] on file Sexual Orientation Not on file COVID-19 Exposure Response Date Recorded In the last month, have you been in contact with someone who was confirmed or suspected to have Coronavirus / COVID-19? No / Unsure 05/12/2021 1:37 PM ASSEMBLY REPAIRER documented as of this encounter Miscellaneous Notes * Telephone Encounter - Mary Kelly RN - 05/14/2021 2:14 PM CST Patient notified of xray results and recommendations. Patient verbalized understanding and agrees Sent link to [employer] MBLY REPAIRER * Telephone Encounter - Bhumi Baker RN - 05/13/2021 1:39 PM ASSEMBLY REPAIRER Attempted to call patient with results, no answer at this time. Left message to call back. Forms faxed successfully to [employer] at [phone]. Copies of forms and release to [facility]. MBLY REPAIRER * Telephone Encounter - Bhumi Baker RN - 05/13/2021 1:39 PM ASSEMBLY REPAIRER ----- Message from GEETHA Bonilla sent at 05/13/2021 11:47 AM ASSEMBLY REPAIRER ----- Please call patient and let them know that results of chest xray is normal. Paperwork being completed for employer and will be faxed. Okay to return to work tomorrow as long as he receives clearance from his work provider. With any shortness of breath or chest pain needs to return to the emergency room. MBLY REPAIRER documented in this encounter Plan of Treatment Not on file documented as of this encounter Visit Diagnoses Not on filedocumented in this encounter Care Teams Hydraulic Jack Adjuster Relationship Specialty Start Date End Date Jimmy Mccormack PAC PCP - General Physician Fruit Farmworker 05/12/21 03/22/22 documented as of this encounter
--- OUTSIDE RECORDS SUMMARY | 2024-06-10 14:56 | XMS_ITS | Encounter Summary ---
Author Organization [facility] Care Team Providers Care Trim Setter Helper Name Role Phone Jimmy Mccormack Primary Care Provider U aprylailkeke Encounter Details Date Type Department Care Team (Latest Contact Info) Description 05/12/2021 Travel Social History Tobacco Use Types Packs/Day Years [...] COVID-19? No / Unsure 05/12/2021 1:37 PM HOSPITAL PHARMACY DIRECTOR documented as of this encounter Plan of Treatment Not on file documented as of this encounter Visit Diagnoses Not on filedocumented in this encounter Care Teams Trim Setter Helper Relationship Specialty Start Date End Date Jimmy Mccormack PAC PCP - General Physician Cheese Sprayer 05/12/21 03/22/22 documented as of this encounter
--- OUTSIDE RECORDS SUMMARY | 2024-06-10 14:56 | XMS_ITS | Encounter Summary ---
Author Organization [facility] Address [address] [place] [address] Phone Care Team Providers Care Drilling Contractor Name Role Phone Provider, None Primary Care Provider Unavailabl e Reason for Visit * Reason Onset Date Comments Appointment 11/04/2022 Encounter Details Date Type Department Care Team (Late st Contact Info) Description 11/04/2022 Telephone [facility] [address] [place] [address] Provider, None [place] Appointment Social History Tobacco Use Types Packs/Day Years [...] encounter Miscellaneous Notes * Telephone Encounter - Haylee Carrera RN - 11/05/2022 2:03 PM CDT Triage done on 11/04/22 separate encounter. * Telephone Encounter - Elizabeth Yeager RN - 11/04/2022 12:03 PM CDT Situation: blood in vomit Background: See previous notes in encounter. Assessment: NA Recommendation: Left message for patient to call back. * Telephone Encounter - Jewels Lees RN - 11/04/2022 11:39 AM CDT Patient calling from emergent line, wanting to re-establish at [place], [place] office, started to triage patient but he accidentally hung up as he started to discuss his sxs Routed to triage pool, please call patient back to triage sxs and set up appt with provider documented in this encounter Plan of Treatment Not on file documented as of this encounter Visit Diagnoses Not on filedocumented in this encounter Care Teams Drilling Contractor Relationship Specialty Start Date End Date Provider, None [place] PCP - General 03/23/22 documented as of this encounter
--- OUTSIDE RECORDS SUMMARY | 2024-06-10 14:56 | XMS_ITS | Clinical Summary ---
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 30 Patch 2 Active nicotine (Nicotine Step 2) 14 MG/24HR PATCH 24 HRIndications:T obacco dependence 1 Patch by Transdermal route every 24 hours. 30 Patch 2 Active nicotine (Nicotine Step 3) 7 MG/24HR PATCH 24 HRIndications:T obacco dependence 1 Patch by Transdermal route every 24 hours. Begin after completing 14 mg patch 30 Patch 3 2 Active ondansetron (ZOFRAN-ODT) 4 MG TABLET DISPERSIBLEIndi cations:Influen za A DISSOLVE 1 TABLET BY MOUTH EVERY 8 HOURS NEEDED FOR NAUSEA FIRST LINE 12 Tablet 2 Active Additional Information Patient not taking.Reported on 11/04/2022 nicotine (NICODERM CQ) 21 MG/24HR PATCH 24 HRIndications:T obacco dependence APPLY 1 PATCH BY TRANSDERMAL ROUTE EVERY 24 HOURS. 28 Patch 2 Active calcium carbonate (TUMS) 500 MG Chewable Tablet Take 2 Tablets by mouth as needed. Active esomeprazole (NexIUM) 20 MG CAPSULE DELAYED RELEASE Take 20 mg by mouth daily as needed. Active Immunizations Immunization Administration Dates Next Due DTP Vaccine 01/26/1997, 5,05/07/1994,1991,1991 Hepatitis B Vaccine, Pediatric/adolescent 01/26/1997,05/11/1996,04/10/1996 Hib Vaccine,unspecified Formulation 09/19/1992,0 1991,1991 MMR Vaccine 04/10/1996,09/19/1992 OPV 01/26/1997, 5,05/07/1994,1991,1991 TDAP Vaccine 05/12/2021 Varicella Vaccine Live 04/23/1998 Family History Medical History Relation Name Comments Diabetes Father Diabetes Maternal Aunt Cancer Maternal Uncle pancreatic Diabetes Maternal Uncle Hypertension Mother Cancer Paternal Uncle pancreatic Relation Name Status Comments Father Alive Maternal Aunt Alive Maternal Uncle Alive Mother Alive Paternal Uncle Alive Social History Tobacco Use Types Packs/Day Years Used Date Smoking Tobacco: Every Day Cigarettes Smokeless Tobacco: Current Chew Tobacco Cessation:Ready to Q uit: No; Counseling Given: Yes Alcohol Use Standard Drinks/Week Comments Yes 6 [...] on file Sexual Orientation Not on file Last Filed Vital Signs Vital Sign Reading Time Taken Comments Blood Pressure 106/62 08/29/2021 8:14 AM CDT Pulse 93 08/29/2021 8:14 AM CDT Temperature 36.7 ??C (98 ??F) 08/29/2021 8:14 AM CDT Respiratory Rate 16 08/29/2021 8:14 AM CDT Oxygen Saturation 97% 08/29/2021 8:14 AM CDT Inhaled Oxygen Concentration - - Weight 78 kg (172 lb) 08/29/2021 8:14 AM CDT Height 190.5 cm (6' 3 ) 08/29/2021 8:14 AM CDT Body Mass Index 21.5 08/29/2021 8:14 AM CDT Plan of Treatment Health Maintenance Due Date Last Done Comments Hepatitis C Virus (HCV) Screening 1991 Influenza Immunization (#1) 2024 SARS-COV-2 Immunization ( season) 2024 DTaP/Tdap/Td Immunization (6 - Td or Tdap) 05/12/2031 05/12/2021, 01/26/1997, 08/17/1994, Additional history exists Respiratory Syncytial Virus (RSV) Immunization (Adult) (1 - 1-dose 75+ series) 2066 Hepatitis B Immunization Completed 997, 05/11/1996, 04/10/1996 Meningococcal Immunization (ACWY) Aged Out No longer eligible based on patient's age to complete this topic Pneumococcal Immunization Combined Aged Out No longer eligible based on patient's age to complete this topic Rotavirus Immunization Aged Out No lo nger eligible based on patient's age to complete this topic Insurance NA [facility] Care Teams Grocery Shopper Relationship Specialty Start Date End Date Provider, None [place] PCP - General 03/23/22
--- OUTSIDE RECORDS SUMMARY | 2024-06-10 14:56 | XMS_ITS | Encounter Summary ---
Author Organization [facility] Address [address] [place] [address] Phone Care Team Providers Care Water Main Inspector Name Role Phone Jimmy Mccormack Primary Care Provider U navailable Reason for Visit * Reason Comments Cough Sore Throat Fever X's 2 days; no appet ite, vomiting yesterday Leg Pain Shooting pain down l eft leg from top of the hip down to knee while sitting Encounter Details Date Type Department Care Team (Late st Contact Info) Description 08/29/2021 8:20 AM CDT Office Visit [facility] Care - [id number] [place] [id number] Jimmy Mccormack PAC Influenza A (Primary Dx); Tobacco dependence Discharge Disposition: Discharged to home or Selfcare Social History Tobacco Use Types Packs/Day Years Used Date Smoking Tobacco: Every Day Cigarettes Smokeless Tobacco: Current Chew Tobacco Cessation:Ready to Q uit: No; Counseling Given: Yes Alcohol Use Standard Drinks/Week Comments Yes 6 (1 standard drink = 0.6 oz pur e alcohol) PHQ-2 Answer Date Recorded Total Score - Questions 1-9 0 1211/2020 Sexually Active Control Partners Comments Yes Male Condom Sex and Gender Information Value Date Recorded Sex Assigned at Not on file Legal Sex Male 11:31 PM CDT Gender Identity Not on file Sexual Orientation Not on file COVID-19 Exposure Response Date Recorded In the last 10 days, have yo u been in contact with someone who was confirmed or suspected to have Coronavirus/COVID-19? No / Unsure 08/29/2021 8:10 AM CDT documented as of this encounter Last Filed Vital Signs Vital Sign Reading [...] Mass Index 21.5 08/29/2021 8:14 AM CDT documented in this encounter Patient Instructions * Patient Instructions* Jimmy Mccormack, PAC - 08/29/2021 8:20 AM CDT Images from the original note were not included. Diagnoses and all orders for this visit: Influenza A - POCT SARS ANTIGEN EYSICA - POCT INFLUENZA A & B - ondansetron (ZOFRAN-ODT) 4 MG TABLET DISPERSIBLE; Take 1 Tablet by mouth every 8 hours as needed for Nausea - 1st line. * Must be 24 hours fever free before returning to work * See conservative management below * Please call with any worsening symptoms or failure to improve Tobacco dependence - nicotine (Nicotine Step 1) 21 MG/24HR PATCH 24 HR; 1 Patch by Transdermal route every 24 hours. - nicotine (Nicotine Step 2) 14 MG/24HR PATCH 24 HR; 1 Patch by Transdermal route every 24 hours. - nicotine (Nicotine Step 3) 7 MG/24HR PATCH 24 HR; 1 Patch by Transdermal route every 24 hours. Begin after completing 14 mg patch Caring for a Viral Upper Respiratory Infection -- Drink plenty of Fluids --Get plenty of rest --A humidifier of vaporizer may help --Use Tylenol (acetaminophen) or Motrin (ibuprofen) as directed for fever or discomfort --Use nasal saline spray as needed for runny nose or congestion --Use salt water gargles and/or warm liquids as needed for sore throat --Warm liquids with honey often help with coughing --May use gzxc-zvf-bvqhsym cough suppressant such as Delsym (dextromethorophan) as needed at bedtime --May use mgdg-icj-afsxjwz expectorant such as Mucinex (guafenisen) as needed during the day to thin secretions --May use mhic-dht-dijstns decongestant such as Sudafed (pseudoephedrine) as needed --If you use a multi-symptom ibob-oje-oybktms cold medicine (Tylenol Cold, NyQuil, etc.), do not take additional Tylenol (or other medincines containing acetaminophen), decongestants, etc as the multi-symptom cold medicines typically contain Tylenol and several other ingredients. --Remember to cover your cough, wash your hands freqeuntly, and avoid sharing drinks, towels, etc while you are sick to avoid spreading the illness to others. - Conservative management was discussed, see AVS Take all medications as prescribed. Please continue with a balanced lifestyle of exercise and healthy eating. If you have questions about scheduling please contact [phone]. If you have questions about a referral that was placed please call [phone]. If symptoms worsen or fail to improve please present to ED or [facility]. If any question, please call. As part of our continued efforts to provide you with excellent healthcare I would ask you to respond to survey you will receive in regards to your experience. Your input and efforts will contribute to improving our patient care experience. Thank you in advance for your participation in this important effort. Thanks for coming in today! Influenza, Adult Influenza is also called the flu. It is an infection in the lungs, nose, and throat (respiratory tract). It spreads easily from person to person (is contagious). The flu causes symptoms that are like a cold, along with high fever and body aches. What are the causes? This condition is caused by the influenza virus. You can get the virus by: ?? Breathing in droplets that are in the air after a person infected with the flu coughed or sneezed. ?? Touching something that has the virus on it and then touching your mouth, nose, or eyes. What increases the risk? Certain things may make you more likely to get the flu. These include: ?? Not washing your hands often. ?? Having close contact with many people during cold and flu season. ?? Touching your mouth, eyes, or nose without first washing your hands. ?? Not getting a flu shot every year. You may have a higher risk for the flu, and serious problems, such as a lung infection (pneumonia),if you: ?? Are older than 65. ?? Are . ?? Have a weakened disease-fighting system (immune system) because of a disease or because you are taking certain medicines. ?? Have a long-term (chronic) condition, such as: ? Heart, kidney, or lung disease. ? Diabetes. ? Asthma. ?? Have a liver disorder. ?? Are very overweight (morbidly obese). ?? Have anemia. What are the signs or symptoms? Symptoms usually begin suddenly and last 4-14 days. They may include: ?? Fever and chills. ?? Headaches, body aches, or muscle aches. ?? Sore throat. ?? Cough. ?? Runny or stuffy (congested) nose. ?? Feeling discomfort in your chest. ?? Not wanting to eat as much as normal. ?? Feeling weak or tired. ?? Feeling dizzy. ?? Feeling sick to your stomach or throwing up. How is this treated? If the flu is found early, you can be treated with antiviral medicine. This can help to reduce how bad the illness is and how long it lasts. This may be given by mouth or through an IV tube. Taking care of yourself at home can help your symptoms get better. Your doctor may want you to: ?? Take tmec-obz-kjmbvot medicines. ?? Drink plenty of fluids. The flu often goes away on its own. If you have very bad symptoms or other problems, you may be treated in a hospital. Follow these instructions at home: Activity ?? Rest as needed. Get plenty of sleep. ?? Stay home from work or school as told by your doctor. ? Do not leave home until you do not have a fever for 24 hours without taking medicine. ? Leave home only to go to your doctor. Eating and drinking ?? Take an ORS (oral rehydration solution). This is a drink that is sold at pharmacies and stores. ?? Drink enough fluid to keep your pee pale yellow. ?? Drink clear fluids in small amounts as you are able. Clear fluids include: ? Water. ? Ice chips. ? Fruit juice mixed with water. ? Low-calorie sports drinks. ?? Eat bland foods that are easy to digest. Eat small amounts as you are able. These foods include: ? Bananas. ? Applesauce. ? Rice. ? Lean meats. ? [place]. ? Crackers. ?? Do not eat or drink: ? Fluids that have a lot of sugar or caffeine. ? Alcohol. ? Spicy or fatty foods. General instructions ?? Take igaw-idn-fqoetmi and prescription medicines only as told by your doctor. ?? Use a cool mist humidifier to add moisture to the air in your home. This can make it easier for you to breathe. ? When using a cool mist humidifier, clean it daily. Empty water and replace with clean water. ?? Cover your mouth and nose when you cough or sneeze. ?? Wash your hands with soap and water often and for at least 20 seconds. This is also important after you cough or sneeze. If you cannot use soap and water, use alcohol-based hand dope worker. ?? Keep all follow-up visits. How is this prevented? ?? Get a flu shot every year. You may get the flu shot in late summer, fall, or winter. Ask your doctor when you should get your flu shot. ?? Avoid contact with people who are sick during fall and winter. This is cold and flu season. Contact a doctor if: ?? You get new symptoms. ?? You have: ? Chest pain. ? Watery poop (diarrhea). ? A fever. ?? Your cough gets worse. ?? You start to have more mucus. ?? You feel sick to your stomach. ?? You throw up. Get help right away if you: ?? Have shortness of breath. ?? Have trouble breathing. ?? Have skin or nails that turn a bluish color. ?? Have very bad pain or stiffness in your neck. ?? Get a sudden headache. ?? Get sudden pain in your face or ear. ?? Cannot eat or drink without throwing up. These symptoms may represent a serious problem that is an emergency. Get medical help right away. Call your local emergency services (911 in the [place] ?? Do not wait to see if the symptoms will go away. ?? Do not drive yourself to the hospital. Summary ?? Influenza is also called the flu. It is an infection in the lungs, nose, and throat. It spreads easily from person to person. ?? Take davn-ogg-oaouvef and prescription medicines only as told by your doctor. ?? Getting a flu shot every year is the best way to not get the flu. This information is not intended to replace advice given to you by your health care provider. Make sure you discuss any questions you have with your health care provider. Document Revised: 01/10/2021 Document Reviewed: 01/10/2021 [employer] Patient Education ?? 2020 [employer] documented in this encounter Progress Notes * Mey Long CMA - 08/29/2021 8:20 AM CDT Paul Cortez, 31 y.o., male is here for Cough, Sore Throat, Fever (X's 2 days; no appetite, vomiting yesterday ), and Leg Pain (Shooting pain down left leg from top of the hip down to knee while sitting) Medication Refills: Patient reports/denies need for medication refills. Orders Pended: no Requested Prescriptions No prescriptions requested or ordered in this encounter Home Medications Medication Sig Start Date End Date Taking? Authorizing Provider nicotine (Nicotine Step 1) 21 MG/24HR PATCH 24 HR 1 Patch by Transdermal route every 24 hours. 05/12/21 Yes Jimmy Mccormack PAC There are no discontinued medications. I have reviewed the home medication list with the patient and have reconciled discrepancies. The list is accurate to the best of my knowledge. Smoking Status: Social History Tobacco Use ??? Smoking status: Current Every Day Smoker Packs/day: 0.50 ??? Smokeless tobacco: Current User Types: Chew Vaping Use ??? Vaping Use: Never used Substance Use Topics ??? Alcohol use: Yes Alcohol/week: 3.6 - 7.2 oz Types: 6 - 12 Cans of beer per week ??? Drug use: Never Smoking Cessation Counseling Given: yes Health Care Maintenance: Health Maintenance Due Topic Date Due ??? SARS-COV-2 Immunization (1) Never done ??? Pneumococcal Immunization (0-64 years) (1 of 2 - PPSV23) Never done ??? Influenza Immunization (1) Never done Orders Pended: no The following BPA's have been addressed with the patient today: Smoking and Depression * Jimmy Mccormack PAC - 08/29/2021 8:20 AM CDT Images from the original note were not included. HPI: Paul Cortez is a 31 y.o. male presents with 2 days of fever, body aches, fatigue, chills, N/V, lack of appetite. Patient also reports increased shortness of breath and wheezing when getting up in the mornings. Has chest tightness and pain only with coughing. Pt has been using OTC cough drops, nyquil. Pt does smoke. Would like nicotine replacement therapy refilled. Pt has not had flu or COVID vaccines Pt reports son had influenza last week. ROS: Review of Systems Constitutional: Positive for chills, fever (101 F yesterday) and malaise/fatigue. HENT: Positive for congestion and sore throat (mild, worse with cough). Negative for ear pain. Respiratory: Positive for cough, shortness of breath and wheezing. Cardiovascular: Positive for chest pain (with cough only). Gastrointestinal: Positive for diarrhea, nausea and vomiting. Musculoskeletal: Positive for myalgias. Neurological: Positive for dizziness (comes and goes) and headaches (comes and goes). PE: BP 106/62 Pulse 93 Temp 98 ??F (36.7 ??C) (Temporal) Resp 16 Ht 6' 3 (1.905 m) Wt 172 lb(78 kg) SpO2 97% BMI 21.50 kg/m?? Physical Exam Vitals and nursing note reviewed. Constitutional: General: He is not in acute distress. Appearance: He is well-developed. He is not diaphoretic. HENT: Head: Normocephalic and atraumatic. Right Ear: Tympanic membrane and ear canal normal. Left Ear: Tympanic membrane and ear canal normal. Nose: No rhinorrhea. Mouth/Throat: Pharynx: No posterior oropharyngeal erythema. Neck: Thyroid: No thyromegaly. Cardiovascular: Rate and Rhythm: Normal rate and regular rhythm. Heart sounds: Normal heart sounds. No murmur heard. Pulmonary: Effort: Pulmonary effort is normal. No respiratory distress. Breath sounds: Normal breath sounds. No wheezing or rales. Musculoskeletal: General: Normal range of motion. Cervical back: Normal range of motion and neck supple. Right lower leg: No edema. Left lower leg: No edema. Lymphadenopathy: Cervical: No cervical adenopathy. Skin: General: Skin is warm and dry. Findings: No rash. Neurological: Mental Status: He is alert and oriented to person, place, and time. Psychiatric: Behavior: Behavior normal. Thought Content: Thought content normal. Judgment: Judgment normal. ASSESSMENT/PLAN: Patient Instructions Diagnoses and all orders for this visit: Influenza A - POCT SARS ANTIGEN YESICA - POCT INFLUENZA A & B - ondansetron (ZOFRAN-ODT) 4 MG TABLET DISPERSIBLE; Take 1 Tablet by mouth every 8 hours as needed for Nausea - 1st line. * Must be 24 hours fever free before returning to work * See conservative management below * Please call with any worsening symptoms or failure to improve Tobacco dependence - nicotine (Nicotine Step 1) 21 MG/24HR PATCH 24 HR; 1 Patch by Transdermal route every 24 hours. - nicotine (Nicotine Step 2) 14 MG/24HR PATCH 24 HR; 1 Patch by Transdermal route every 24 hours. - nicotine (Nicotine Step 3) 7 MG/24HR PATCH 24 HR; 1 Patch by Transdermal route every 24 hours. Begin after completing 14 mg patch Caring for a Viral Upper Respiratory Infection -- Drink plenty of Fluids --Get plenty of rest --A humidifier of vaporizer may help --Use Tylenol (acetaminophen) or Motrin (ibuprofen) as directed for fever or discomfort --Use nasal saline spray as needed for runny nose or congestion --Use salt water gargles and/or warm liquids as needed for sore throat --Warm liquids with honey often help with coughing --May use xhlf-stt-bbhdzyc cough suppressant such as Delsym (dextromethorophan) as needed at bedtime --May use bpnd-auf-ybjxlfl expectorant such as Mucinex (guafenisen) as needed during the day to thin secretions --May use fugz-iim-ypmrukw decongestant such as Sudafed (pseudoephedrine) as needed --If you use a multi-symptom mthq-pzh-yxfymtc cold medicine (Tylenol Cold, NyQuil, etc.), do not take additional Tylenol (or other medincines containing acetaminophen), decongestants, etc as the multi-symptom cold medicines typically contain Tylenol and several other ingredients. --Remember to cover your cough, wash your hands freqeuntly, and avoid sharing drinks, towels, etc while you are sick to avoid spreading the illness to others. - Conservative management was discussed, see AVS Take all medications as prescribed. Please continue with a balanced lifestyle of exercise and healthy eating. If you have questions about scheduling please contact [phone]. If you have questions about a referral that was placed please call [phone]. If symptoms worsen or fail to improve please present to ED or [facility]. If any question, please call. As part of our continued efforts to provide you with excellent healthcare I would ask you to respond to survey you will receive in regards to your experience. Your input and efforts will contribute to improving our patient care experience. Thank you in advance for your participation in this important effort. Thanks for coming in today! Influenza, Adult Influenza is also called the flu. It is an infection in the lungs, nose, and throat (respiratory tract). It spreads easily from person to person (is contagious). The flu causes symptoms that are like a cold, along with high fever and body aches. What are the causes? This condition is caused by the influenza virus. You can get the virus by: ?? Breathing in droplets that are in the air after a person infected with the flu coughed or sneezed. ?? Touching something that has the virus on it and then touching your mouth, nose, or eyes. What increases the risk? Certain things may make you more likely to get the flu. These include: ?? Not washing your hands often. ?? Having close contact with many people during cold and flu season. ?? Touching your mouth, eyes, or nose without first washing your hands. ?? Not getting a flu shot every year. You may have a higher risk for the flu, and serious problems, such as a lung infection (pneumonia),if you: ?? Are older than 65. ?? Are . ?? Have a weakened disease-fighting system (immune system) because of a disease or because you are taking certain medicines. ?? Have a long-term (chronic) condition, such as: ? Heart, kidney, or lung disease. ? Diabetes. ? Asthma. ?? Have a liver disorder. ?? Are very overweight (morbidly obese). ?? Have anemia. What are the signs or symptoms? Symptoms usually begin suddenly and last 4-14 days. They may include: ?? Fever and chills. ?? Headaches, body aches, or muscle aches. ?? Sore throat. ?? Cough. ?? Runny or stuffy (congested) nose. ?? Feeling discomfort in your chest. ?? Not wanting to eat as much as normal. ?? Feeling weak or tired. ?? Feeling dizzy. ?? Feeling sick to your stomach or throwing up. How is this treated? If the flu is found early, you can be treated with antiviral medicine. This can help to reduce how bad the illness is and how long it lasts. This may be given by mouth or through an IV tube. Taking care of yourself at home can help your symptoms get better. Your doctor may want you to: ?? Take emon-lic-mvnwnhk medicines. ?? Drink plenty of fluids. The flu often goes away on its own. If you have very bad symptoms or other problems, you may be treated in a hospital. Follow these instructions at home: Activity ?? Rest as needed. Get plenty of sleep. ?? Stay home from work or school as told by your doctor. ? Do not leave home until you do not have a fever for 24 hours without taking medicine. ? Leave home only to go to your doctor. Eating and drinking ?? Take an ORS (oral rehydration solution). This is a drink that is sold at pharmacies and stores. ?? Drink enough fluid to keep your pee pale yellow. ?? Drink clear fluids in small amounts as you are able. Clear fluids include: ? Water. ? Ice chips. ? Fruit juice mixed with water. ? Low-calorie sports drinks. ?? Eat bland foods that are easy to digest. Eat small amounts as you are able. These foods include: ? Bananas. ? Applesauce. ? Rice. ? Lean meats. ? [place]. ? Crackers. ?? Do not eat or drink: ? Fluids that have a lot of sugar or caffeine. ? Alcohol. ? Spicy or fatty foods. General instructions ?? Take vxtz-qie-odlfjpw and prescription medicines only as told by your doctor. ?? Use a cool mist humidifier to add moisture to the air in your home. This can make it easier for you to breathe. ? When using a cool mist humidifier, clean it daily. Empty water and replace with clean water. ?? Cover your mouth and nose when you cough or sneeze. ?? Wash your hands with soap and water often and for at least 20 seconds. This is also important after you cough or sneeze. If you cannot use soap and water, use alcohol-based hand dope worker. ?? Keep all follow-up visits. How is this prevented? ?? Get a flu shot every year. You may get the flu shot in late summer, fall, or winter. Ask your doctor when you should get your flu shot. ?? Avoid contact with people who are sick during fall and winter. This is cold and flu season. Contact a doctor if: ?? You get new symptoms. ?? You have: ? Chest pain. ? Watery poop (diarrhea). ? A fever. ?? Your cough gets worse. ?? You start to have more mucus. ?? You feel sick to your stomach. ?? You throw up. Get help right away if you: ?? Have shortness of breath. ?? Have trouble breathing. ?? Have skin or nails that turn a bluish color. ?? Have very bad pain or stiffness in your neck. ?? Get a sudden headache. ?? Get sudden pain in your face or ear. ?? Cannot eat or drink without throwing up. These symptoms may represent a serious problem that is an emergency. Get medical help right away. Call your local emergency services (911 in the [place] ?? Do not wait to see if the symptoms will go away. ?? Do not drive yourself to the hospital. Summary ?? Influenza is also called the flu. It is an infection in the lungs, nose, and throat. It spreads easily from person to person. ?? Take jjxp-otm-gxjwdmp and prescription medicines only as told by your doctor. ?? Getting a flu shot every year is the best way to not get the flu. This information is not intended to replace advice given to you by your health care provider. Make sure you discuss any questions you have with your health care provider. Document Revised: 01/10/2021 Document Reviewed: 01/10/2021 [employer] Patient Education ?? 2020 [employer]. This note was dictated using [employer] fluency dictation system and there may be errors in school photographer. Despite proof reading the note, there may be mistakes and I apologize for those. Chief complaint and all history documented by ancillary staff were reviewed and verified, with additions or corrections, as appropriate. Jimmy Mccormack PA-C documented in this encounter Plan of Treatment Not on file documented as of this encounter Procedures Procedure Name Priority Date/Time Associated Diagnosis Comments POCT SARS ANTIGEN YESICA Routine 08/29/2021 8:40 AM CDT Influenza A POCT INFLUENZA A & B Routine 08/29/2021 8:40 AM CDT Influenza A documented in this encounter Results * POCT INFLUENZA A & B (08/29/2021 8:40 AM CDT) POC INFLU A Positive Group A POC INFLU B Presumptive negative Group B POC INFLUENZA CONTROL Refrigerating Machine Operator Pass 08/29/2021 8:40 AM CDT Jimmy Mccormack [facility] POINT OF CARE TESTING (M ANUAL) Final Result * POCT SARS ANTIGEN YESICA (08/29/2021 8:40 AM CDT) POC SARS ANTIGEN YESICA Negative Negative POC SARS ANTIGEN YESICA CONTROL Refrigerating Machine Operator Pass Swab NASAL STRUCTURE / Unknown 08/29/2021 8:40 AM CDT us Jimmy Mccormack [facility] POINT OF CARE TESTING (M ANUAL) Final Result documented in this encounter Visit Diagnoses Diagnosis Influenza A- Primary Influenza with other respiratory manifestations Tobacco dependence Tobacco use disorder documented in this encounter Additional Health Concerns Infection Onset Date Last Indicated Resolved Time COVID - 19 08/29/2021 08/29/2021 09/18/2021 12:1 6 AM CDT documented as of this encounter Care Teams Water Main Inspector Relationship Specialty Start Date End Date Jimmy Mccormack PAC PCP - General Physician Stranding Machine Operator Helper 05/12/21 03/22/22 documented as of this encounter
--- OUTSIDE RECORDS SUMMARY | 2024-06-10 14:56 | XMS_ITS | Encounter Summary ---
Author Organization [facility] Care Team Providers Care Wireline Supervisor Name Role Phone Jimmy Mccormack PAC Primary Care Provider U navailable Encounter Details Date Type Department Care Team (Latest Contact Info) Description 08/29/2021 Travel Social History Tobacco Use Types Packs/Day Years Used Date Smoking Tobacco: Every Day Cigarettes Smokeless Tobacco: Current Chew Alcohol Use Standard Drinks/Week Comments Yes 6 (1 standard drink = 0.6 oz pur e alcohol) PHQ-2 Answer Date Recorded Total Score - Questions 1-9 0 12/0 11/2020 Sexually Active Control Partners Comments Yes [...] AM CDT documented as of this encounter Plan of Treatment Not on file documented as of this encounter Visit Diagnoses Not on filedocumented in this encounter Additional Health Concerns Infection Onset Date Last Indicated Resolved Time COVID - 19 08/29/2021 08/29/2021 09/18/2021 12:1 6 AM CDT documented as of this encounter Care Teams Wireline Supervisor Relationship Specialty Start Date End Date Jimmy Mccormack PAC PCP - General Physician T Rail Turner 05/12/21 03/22/22 documented as of this encounter
--- OUTSIDE RECORDS SUMMARY | 2024-06-10 14:56 | XMS_ITS | Encounter Summary ---
Author Organization [facility] Address [address] [place] [address] Phone Care Team Providers Care Visitor Use Assistant Name Role Phone Jimmy Mccormack PAC Primary Care Provider U navailable Reason for Visit * Reason Comments Medication Refill Encounter Details Date Type Department Care Team (Late st Contact Info) Description 09/22/2021 Refill [facility] - Primary Care - [place] [address] [place] [address] Jimmy Mccormack, PAC Medication Refill Social History Tobacco Use Types Packs/Day Years [...] AM CDT documented as of this encounter Miscellaneous Notes * Telephone Encounter - Jodi Jarrett RN - 09/23/2021 4:03 PM CDT Message sent through [employer]. * Telephone Encounter - Swetha Jaramillo APRN, PACK PRESS OPERATOR - 09/22/2021 4:04 PM CDT Approved with No Refills. Needs appt with PCP. * Telephone Encounter - Bhumi Baker RN - 09/22/2021 2:46 PM CDT Medication failed the protocol, provider to review and approve the medication order if appropriate. Requested Prescriptions Pending Prescriptions Disp Refills nicotine (NICODERM CQ) 21 MG/24HR PATCH 24 HR [Pharmacy Med Name: NICOTINE 21 MG/24HR PATCH] 28 Patch Sig: APPLY 1 PATCH BY TRANSDERMAL ROUTE EVERY 24 HOURS. Not Delegated - Smoking Deterrents Protocol Failed - 09/22/2021 2:36 PM Failed - This refill cannot be delegated Passed - Visit with relevant provider in past 6 months or upcoming 90 days Recent Visits Date Type Provider Dept 08/29/21 Office Visit Jimmy Mccormack PAC [facility] 05/12/21 Office Visit Jimmy Mccormack PAC [facility] Showing recent visits within past 182 days and meeting all other requirements Future Appointments No visits were found meeting these conditions. Showing future appointments within next 90 days and meeting all other requirements documented in this encounter Plan of Treatment Not on file documented as of this encounter Visit Diagnoses Diagnosis Tobacco dependence Tobacco use disorder documented in this encounter Care Teams Visitor Use Assistant Relationship Specialty Start Date End Date Jimmy Mccormack PAC PCP - General Physician Route Rider 05/12/21 03/22/22 documented as of this encounter
--- OUTSIDE RECORDS SUMMARY | 2024-06-10 14:56 | XMS_ITS | Encounter Summary ---
Author Organization [facility] Address [address] [place] [address] Phone Care Team Providers Care Towel Rolling Machine Operator Name Role Phone Jimmy Mccormack PAC Primary Care Provider U navailable Provider, None Primary Care Provider Unavailabl e Reason for Visit * Reason Comments Medication Refill Encounter Details Date Type Department Care Team (Late st Contact Info) Description 09/07/2021 Refill [facility] - Primary Care - [place] [address] [place] [address] Jimmy Mccormack, PAC Medication Refill [...] Telephone Encounter - Jodi Jarrett RN - 09/08/2021 1:12 PM CDT Medication failed the protocol, provider to review and approve the medication order if appropriate. Requested Prescriptions Pending Prescriptions Disp Refills ondansetron (ZOFRAN-ODT) 4 MG TABLET DISPERSIBLE [Pharmacy Med Name: ONDANSETRON ODT 4 MG TABLET] 12 Tablet 0 Sig: DISSOLVE 1 TABLET BY MOUTH EVERY 8 HOURS NEEDED FOR NAUSEA FIRST LINE Not Delegated - 5-HT3 Antagonists Protocol Failed - 09/07/2021 4:02 PM Failed - This refill cannot be delegated Passed - Visit with relevant provider in past 12 months or upcoming 90 days Recent Visits Date Type Provider Dept 08/29/21 Office Visit Jimmy Mccormack PAC [facility] 05/12/21 Office Visit Jimmy Mccormack PAC [facility] Showing recent visits within past 365 days and meeting all other requirements Future Appointments No visits were found meeting these conditions. Showing future appointments within next 90 days and meeting all other requirements documented in this encounter Plan of Treatment Not on file documented as of this encounter Visit Diagnoses Diagnosis Influenza A Influenza with other respiratory manifestations documented in this encounter Additional Health Concerns Infection Onset Date Last Indicated Resolved Time COVID - 19 08/29/2021 08/29/2021 09/18/2021 12:1 6 AM CDT documented as of this encounter Care Teams Towel Rolling Machine Operator Relationship Specialty Start Date End Date Jimmy Mccormack PAC PCP - General Physician Qualitative Field Coordinator 05/12/21 03/22/22 Provider, None [place] PCP - General 03/23/22 documented as of this encounter
--- OUTSIDE RECORDS SUMMARY | 2024-06-10 14:56 | XMS_ITS | Encounter Summary ---
Author Organization [facility] Address [address] [place] [address] Phone Care Team Providers Care Packager Hand Name Role Phone Jimmy Mccormack PAC Primary Care Provider U navailable Reason for Visit * Reason Onset Date Comments Nausea 06/30/2021 Vomiting 06/30/2021 Encounter Details Date Type Department Care Team (Late st Contact Info) Description 06/30/2021 Nurse Triage [facility] [address] [place] [address] Jimmy Mccormack, PAC Nausea; Vomiting Social History Tobacco Use Types Packs/Day Years Used Date Smoking Tobacco: Every Day Cigarettes Smokeless Tobacco: Current Chew Alcohol Use Standard Drinks/Week Comments Yes 6 (1 standard drink = 0.6 oz pur e alcohol) PHQ-2 Answer Date Recorded Total Score - Questions 1-9 0 0 11/2020 Sexually Active Control Partners Comments [...] have Coronavirus / COVID-19? No / Unsure 06/30/2021 11:53 AM COMPUTER FORWARDING SYSTEM MARKUP CLERK documented as of this encounter Miscellaneous Notes * Telephone Encounter - Deya Chanel RN - 06/30/2021 4:44 PM CST Pt set up for covid test tomorrow. Wants to change providers to this office instead of [facility]. UTER FORWARDING SYSTEM MARKUP CLERK * Telephone Encounter - Jessica Portillo - 06/30/2021 11:42 AM CST Reason for Disposition ? ? MILD to MODERATE vomiting (e.g., 1-5 times/day) and lasts > 48 hours (2 days) Protocols used: [id number]-W-HF S; Nausea and Vomiting B: Patient states he was at work last night and all of a sudden became very nauseated then started vomiting. Says at the time he also had a fever of 101 and a headache. Says he has vomited approximately 8 times since midnight. Says not able to eat or drink much of anything without making him extremely nauseated. Says at this point he does not have anything left to throw up. A: Still urinating and is alert. Temperature is currently 99. No abdominal pain or diarrhea. Trace amount of blood and bile when vomiting earlier today x 1. No other symptoms present. R: Patient is currently a patient [facility] in [place] but says that is a long drive. He would like parul seen/transfer care to [facility] in [place] if possible. Routing to the [place] office to see if able to see today. UTER FORWARDING SYSTEM MARKUP CLERK documented in this encounter Plan of Treatment Not on file documented as of this encounter Visit Diagnoses Not on filedocumented in this encounter Care Teams Packager Hand Relationship Specialty Start Date End Date Jimmy Mccormack PAC PCP - General Physician Material Processor 05/12/21 03/22/22 documented as of this encounter
--- OUTSIDE RECORDS SUMMARY | 2024-06-10 14:56 | XMS_ITS | Encounter Summary ---
Author Organization [facility] Address [address] [place] [address] Phone Care Team Providers Care Rail Express Clerk Name Role Phone Provider, None Primary Care Provider Unavailabl e Reason for Visit * Reason Onset Date Comments transfer to triage 11/04/2022 Esophageal Reflux 11/04/2022 Encounter Details Date Type Department Care Team (Late st Contact Info) Description 11/04/2022 Nurse Triage [facility] [address] [place] [address] Jimmy Mccormack, GEETHA transfer to triage; Esophageal Reflux Social History Tobacco Use Types Packs/Day Years [...] encounter Miscellaneous Notes * Telephone Encounter - Bhumi oJe RN - 11/04/2022 11:56 AM CDT SITUATION: Vomiting after eating BACKGROUND: Symptoms started a week ago. Patient states he has acid reflux and the vomiting has been occurring about 30 minutes to an hour after patient eats anything. ASSESSMENT: Patient states he will vomit up blood that is red to dark red in color. Patient states it looks like fresh blood, but the color is very dark. Patient states the amount of blood is about atablespoon in amount. Patient states the bloody vomit has been getting worse this week. Patient hashad to miss two days of work due to vomiting and not being able to keep food down. When patient vomits, he will vomit everything he has eaten. Patient states you can fill a bowl up with it. Patientstates he has vomited at least ten times in the last 24 hours. Patient states there is blood present in all of his vomit. Patient states he thinks he has GERD. Patient states he is a smoker. Patient s tates everytime he tries to quit smoking, the GERD acts up a little. Patient states he has signs ofdehydration. Patient states he can tolerate a glass of water until he gets the full feeling and then he will vomit. Patient denies diarrhea. Patient states he has a burning sensation in the back of his throat at times and patient states he will get gassy preceding the vomiting. Patient denies othersymptoms. Appointment made: Advised patient to go to ED for evaluation. Advised patient to call back to schedule a new patient/ED follow-up appointment. Patient is in agreement. Assistive Services: none RECOMMENDATION: See care advice and disposition for Guideline First positive answer recorded, all responses to prior questions were negative. If symptoms increase, change or if new symptoms develop, call your HCP or call back. Recommendations were based on caller information and is not a diagnosis. Verified and reviewed all triage information with caller. Reason for Disposition ? ? Drinking very little and dehydration suspected (e.g., no urine > 12 hours, very dry mouth, very lightheaded) Protocols used: VOMITING BLOOD-A-OH * Telephone Encounter - Iona Damian - 11/04/2022 11:39 AM CDT Symptom: Vomiting Outcome: Warm transfer to an emergent RN NOW! Reason: Blood in the vomit The caller accepted this outcome documented in this encounter Plan of Treatment Not on file documented as of this encounter Visit Diagnoses Not on filedocumented in this encounter Care Teams Rail Express Clerk Relationship Specialty Start Date End Date Provider, Sivakumar RODRÍGUEZ PCP - General 03/23/22 documented as of this encounter
--- OUTSIDE RECORDS SUMMARY | 2024-06-10 14:56 | XMS_ITS | Encounter Summary ---
Author Organization [facility] Address [address] [place] [address] Phone Care Team Providers Care Side Guider Name Role Phone Jimmy Mccormack Primary Care Provider Rebecca galo Encounter Details Date Type Department Care Team (Late st Contact Info) Description 07/01/2021 10:50 AM SUPERVISOR FRUIT GRADING Lab [facility] - Internal Medicine [place] [address] [place] [address] Enma Torres [facility] Fatigue, unspecified type (Primary Dx) Discharge Disposition: Discharged to home or Selfcare [...] COVID-19? No / Unsure 06/30/2021 11:53 AM SUPERVISOR FRUIT GRADING documented as of this encounter Plan of Treatment Not on file documented as of this encounter Procedures Procedure Name Priority Date/Time Associated Diagnosis Comments SARS-COV-2 BY MOLECULAR Routine 07/01/2021 11:30 AM SUPERVISOR FRUIT GRADING Fatigue, unspecified type POCT SARS ANTIGEN YESICA Routine 07/01/2021 10:50 AM SUPERVISOR FRUIT GRADING Fatigue, unspecified type documented in this encounter Results * SARS-COV-2 BY MOLECULAR (07/01/2021 11:30 AM SUPERVISOR FRUIT GRADING) SARSCOV2 NOT DETECTED (Referen ce Range for this test is Not Detected ) [facility] FA[facility] DX 07/02/2021 12:38 PM SUPERVISOR FRUIT GRADING [facility] Comment:This test was perfor med by a RT-PCR method. Other NASAL STRUCTURE / Unknown Non-Phlebotomy Collection / Unknown 07/01/2021 11:30 AM SUPERVISOR FRUIT GRADING 07/01/2021 11:30 AM SUPERVISOR FRUIT GRADING [facility]ative [facility] - 07/02/2021 12:38 PM SUPERVISOR FRUIT GRADING Authorized Fact Sheets about this test for providers and patients are available at: https://www.fda.gov/medical-devices/vzphqclph-lnsiytivhb-zxfnyas-devices/emergen -us e-authorizations Massiel Gomez PAC MICROBIOLOGY - GE NERAL ORDERABLES Final Result Performing Organization Address City/State/[facility] Co de Phone Number [facility] [address] * POCT SARS ANTIGEN YESICA (07/01/2021 10:50 AM SUPERVISOR FRUIT GRADING) POC SARS ANTIGEN YESICA Negative Negative POC SARS ANTIGEN YESICA CONTROL Powdered Metal Supervisor QC Fail Swab NASAL STRUCTURE / Unknown 07/01/2021 10:50 AM SUPERVISOR FRUIT GRADING Massiel Gomez PAC POINT OF CARE KASSANDRA TING (MANUAL) Final Result documented in this encounter Visit Diagnoses Diagnosis Fatigue, unspecified type- Primary documented in this encounter Care Teams Side Guider Relationship Specialty Start Date End Date Jimmy Mccormack PAC PCP - General Physician Commercial Real Estate Assistant 05/12/21 03/22/22 documented as of this encounter
--- OUTSIDE RECORDS SUMMARY | 2024-06-10 14:56 | XMS_ITS | Encounter Summary ---
Author Organization [facility] Address [address] [place] [address] Phone Care Team Providers Care Sales Exec Name Role Phone Jimmy Mccormack PAC Primary Care Provider U navailable Reason for Visit * Reason Onset Date Comments Results 07/01/2021 Rapid covid resu lts Encounter Details Date Type Department Care Team (Late st Contact Info) Description 07/01/2021 Telephone [facility] - Internal Medicine - [place] [address] [place] [address] Jimmy Mccormack, PAC Results (Rapid covid results) Social History Tobacco Use Types Packs/Day Years [...] COVID-19? No / Unsure 06/30/2021 11:53 AM SPORTS MANAGEMENT INTERN documented as of this encounter Miscellaneous Notes * Telephone Encounter - Deya Chanel RN - 07/01/2021 11:42 AM CST Pt aware of NEG rapid results. Verbalizes understanding. TS MANAGEMENT INTERN documented in this encounter Plan of Treatment Not on file documented as of this encounter Visit Diagnoses Not on filedocumented in this encounter Additional Health Concerns Infection Onset Date Last Indicated Resolved Time COVID - 19 07/01/2021 07/01/2021 07/21/2021 12:1 6 AM SPORTS MANAGEMENT INTERN documented as of this encounter Care Teams Sales Exec Relationship Specialty Start Date End Date Jimmy Mccormack PAC PCP - General Physician Cso 05/12/21 03/22/22 documented as of this encounter
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
--- OUTSIDE RECORDS SUMMARY | 2024-06-10 14:56 | XMS_ITS | Encounter Summary ---
Author Organization [facility] Address [address] [place] [address] Phone Care Team Providers Care Bingo Cashier Name Role Phone Jimmy Mccormack Primary Care Provider U navailable Reason for Visit * Reason Onset Date Comments Medication Refill 08/29/2021 Encounter Details Date Type Department Care Team (Late st Contact Info) Description 08/29/2021 MyChart RX Renewal [facility] - Primary Care - [address] [address] Jimmy Mccormack PAC Medication Renewal Reviewed Social History Tobacco Use Types Packs/Day Years [...] encounter Miscellaneous Notes * Telephone Encounter - Jimmy Mccormack PAC - 08/29/2021 9:32 AM CDT Rx refill approved. * Telephone Encounter - Jodi Jarrett RN - 08/29/2021 8:41 AM CDT Medication failed the protocol, provider to review and approve the medication order if appropriate. Requested Prescriptions Pending Prescriptions Disp Refills nicotine (Nicotine Step 1) 21 MG/24HR PATCH 24 HR 30 Patch 0 Si Patch by Transdermal route every 24 hours. Not Delegated - Smoking Deterrents Protocol Failed - 08/29/2021 8:19 AM Failed - This refill cannot be delegated Passed - Visit with relevant provider in past 6 months or upcoming 90 days Recent Visits Date Type Provider Dept 05/12/21 Office Visit Jimmy Mccormack, GEETHA [facility] Showing recent visits within past 182 days and meeting all other requirements Today's Visits Date Type Provider Dept 08/29/21 Office Visit Jimmy Mccormack PAC [facility] Showing today's visits and meeting all other requirements Future Appointments No visits were found meeting these conditions. Showing future appointments within next 90 days and meeting all other requirements documented in this encounter Plan of Treatment Not on file documented as of this encounter Visit Diagnoses Diagnosis Personal history of tobacco use, presenting hazards to health documented in this encounter Additional Health Concerns Infection Onset Date Last Indicated Resolved Time COVID - 19 08/29/2021 08/29/2021 09/18/2021 12:1 6 AM CDT documented as of this encounter Care Teams Bingo Cashier Relationship Specialty Start Date End Date Jimmy Mccormack PAC PCP - General Physician Coater Operator 05/12/21 03/22/22 documented as of this encounter
--- OUTSIDE RECORDS SUMMARY | 2024-06-10 14:56 | XMS_ITS | Encounter Summary ---
Author Organization [facility] Care Team Providers Care Vp Organizational Development Name Role Phone Jimmy Mccormack Primary Care Provider U aprylailkeke Encounter Details Date Type Department Care Team (Latest Contact Info) Description 06/30/2021 Travel Social History Tobacco Use Types Packs/Day Years Used Date Smoking Tobacco: Every Day Cigarettes Smokeless Tobacco: Current Chew Alcohol Use Standard Drinks/Week Comments Yes 6 (1 standard drink = 0.6 oz pur e alcohol) PHQ-2 Answer Date Recorded Total Score - Questions 1-9 0 12/11/2020 Sexually Active Control Partners Comments Yes Male [...] COVID-19? No / Unsure 06/30/2021 11:53 AM INTERNET SITE DESIGNER documented as of this encounter Plan of Treatment Not on file documented as of this encounter Visit Diagnoses Not on filedocumented in this encounter Care Teams Vp Organizational Development Relationship Specialty Start Date End Date Jimmy Mccormack PAC PCP - General Physician Huc 05/12/21 03/22/22 documented as of this encounter
--- OUTSIDE RECORDS SUMMARY | 2024-06-10 14:57 | XMS_ITS | Clinical Summary ---
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 endoscopy in 1 year forsurveillance. - Follow an antireflux regimen. - Increase Protonix to 40 mg tablets twice dailyfor the next 6 months and then once daily again indefinitely. Medicines: Monitored Anesthesia Care Complications: No immediate complications. Estimated Blood Loss: Estimated blood loss: none. Procedure: Pre-Anesthesia Assessment: - Prior to the procedure, a History and Physicalwas performed, and patient medications and allergieswere reviewed. The patient's tolerance of previous anesthesia was also reviewed. The risks andbenefits of the procedure and the sedation options and risks were discussed with the patient. All questions were answered, and informed consent was obtained. Prior Anticoagulants: The patient has taken noanticoagulant or antiplatelet agents. ASA Grade Assessment: Per anesthesia note and evaluation. After reviewing the risks and benefits, the patient was deemed in satisfactory condition to undergo the procedure. The benefits, risks, and alternatives to theprocedure and sedation were discussed and informed consentwas obtained. The scope was passed under direct vision. The Endoscope [id number] [id number] was introduced through the mouth, and advanced to the second partof duodenum. The upper GI endoscopy was accomplished without difficulty. The patient tolerated the procedure well. Findings: The examined duodenum was normal. Mucosa appeared normal. Diffuse mildly erythematous mucosa without bleeding was found in the prepyloric region of the stomach. Biopsies were taken with a cold forceps for Helicobacter pylori testing using CLOtest. The gastricbody and fundus appeared unremarkable otherwise. Retroflexion in thestomach showed the hiatal hernia. A 3 cm hiatal hernia was present below the GE junction. There were esophageal mucosal changes suspicious for long-segment Tolentino's esophagus present in the lower third of the esophagus. The maximum longitudinal extent of these mucosal changes was 10 cm in length. Mucosa was biopsied with a cold forceps for histology in 4 quadrants at intervals of 2 cm. A total of 2 specimen bottles weresent to pathology. The GE junction was noted at the 37 cm from the mouth opening at the Z-line was at 27 cm from the mouth opening Electronically signed by Siri Alves M.D. Siri Alves M.D. 04/06/2024 1:57:47 PM Number of Addenda: 0 Note Initiated On: 04/06/2024 1:04 PM Procedure Code(s): --- Professional --- 58604, Esophagogastroduodenoscopy, flexible, transoral; with biopsy, single or multiple Diagnosis Code(s): --- Professional --- K22.89, Other specified disease of esophagus K31.89, Other diseases of stomach and duodenum K44.9, Diaphragmatic hernia without obstruction or gangrene R12, Heartburn CPT copyright 2020 [employer]. All rights reserved. The codes documented in this report are preliminary and upon edger technician reviewmay be revised to meet current compliance requirements. Recognized by the [employer] for promoting quality in endoscopy Siri Alves MD ENDOSCOPY PROCEDURES Final Result * Surgical pathology (04/06/2024 10:30 AM CDT) Gastric/Stomach biopsy 04/06/2024 10:30 AM CDT 04/07/2024 10:30 AM CDT Narrative 04/10/2024 4:04 PM ELECTRONIC FUNDS TRANSFER COORDINATOR EPIC results best viewed via link to PDF [facility] Department of Pathology [address] [place] [address] Note to Patients: This report may contain a detailed description of human tissue sent by a health care provider to the laboratory for pathologic evaluation. The content of this report is essential for diagnosis and may provide important critical findings. This information may be unfamiliar to patients to review without a medical professional present. It is advised that the patient review this report in the presence of a health care provider who can answer questions and explain the details. Final Report Patient Name: ??PAUL JUAN Address: ?? [address] , ??[place], [place] [address] Gender: ??M : ??1990 (Age: 34) Service: ??Gastro Location: ??[facility] Hospital #: ??[id number] Patient Type: ??[facility] Accession # ?[id number] Taken: ??04/06/2024 Received: ??04/07/2024 Accessioned: ??04/07/2024 Reported: ??04/10/2024 Physician(s):Dr. Siri Alves M.D. Diagnosis: A. ??Gastroesophageal junction, biopsy: ? - Scant squamous mucosa with reflux alterations. ? - Cardiac-type mucosa with extensive intestinal metaplasia and chronic focally active inflammation. ? - No evidence of dysplasia or malignancy. B. ??Esophagus, biopsy: ? - Squamous mucosa with reflux alterations. ? - Cardiac-type mucosa with extensive intestinal metaplasia and chronic focally active inflammation. ? - No evidence of dysplasia or malignancy. Walter Burgess MD Report Electronically Reviewed and Signed Out By ??Walter Burgess MD ??04/10/2024 16:04:22 Specimen(s) Received: A: GE Junction Biopsy B: Esophageal Biopsy Microscopic Description: A-B. ??Specimens A and B show similar findings and will be described together. ??Sections show squamous mucosa with reflux alterations characterized by basal hyperplasia in specimen A and elongation of papillae and basal hyperplasia in specimen B. ??Also seen is cardiac-type mucosa with extensive intestinal metaplasia and chronic focally active inflammation - the active inflammation is seen more so in specimen B (from the esophagus). ??There is no evidence of dysplasia or malignancy. ??No definitive Helicobacter organisms are identified on routine H&E staining. ??A Helicobacter immunostain is performed with appropriately reactive controls on block B1 and is negative. Clinical History: GERD with esophagitis without hemorrhage. ??EGD. ?? Gross Description: The specimen is submitted in two formalin containers labeled PAUL YESSICA . A. ??The first container is labeled GE junction . It is 4 fragments of manuel tissue measuring 2 mm. All in A. B. ??The second container is labeled esophageal biopsy . It is 3 fragments of manuel tissue between 1 and 2 mm. All in B. T.A. Shelby Escalera., P.A./Radha Weston M.D. REPORT IMAGES AND SCANNED DOCUMENTS, IF INCLUDED, ONLY VIEWABLE IN PDF VERSION OF REPORT The performance characteristics of some immunohistochemical stains, fluorescence in-situ hybridization tests and immunophenotyping by flow cytometry cited in this report (if any) were determined by the Surgical Pathology Department at [facility] as part of an ongoing senior software quality analyst program and in compliance with federally mandated regulations drawn from the Clinical Laboratory Improvement Act of 1988 (CLIA '88). ??Some of these tests rely on the use of analyte specific reagents and are subject to specific labeling requirements by the US Food and Drug Administration. ??Such diagnostic tests may only be performed in a facility that is certified by the Department of Health and Human Services as a high complexity laboratory under CLIA '88. The FDA has determined that such clearance or approval is not necessary. ??This test is used for clinical purposes. ??It should not be regarded as investigational or for research. ??Nevertheless, federal rules concerning the medical use of analyte specific reagents require that the following disclaimer be attached to the report: This test was developed and its performance characteristics determined by the Surgical Pathology Department [facility]. ??It has not been cleared or approved by the U. S. Food and Drug Administration. Note for decalcified specimens: This assay has not been validated on decalcified tissues. Results should be interpreted with caution given the possibility of false negativity on decalcified specimens Siri Alves MD LAB PATHOLOGY ORDERABLES F inal Result * XR Chest Pa Lateral 2 Views (03/27/2024 11:57 AM CDT) Anatomical Region Laterality Modality Body, Chest N/A Computed Radiogr aphy 03/29/2024 12:5 7 AM CDT Narrative 03/29/2024 12:57 AM CDT EXAM DESCRIPTION: XR CHEST PA LATERAL 2 VIEWS REASON FOR STUDY: persistent cough ?? Checking for possible pneumonia. ??Complaints of coughing up blood, SOB. ?? Hx of asthma. ?? Former smoker. ?? Hx of fractured ribs x 3 years ago. ?? No surgery to heart/lungs. ? TECHNIQUE: 3 ??radiographic view(s) of the chest. COMPARISON: 01/09/2024 FINDINGS: LUNGS: ??No focal opacity, pleural effusion, or pneumothorax. ?? HEART/MEDIASTINUM: ??Cardiac silhouette normal in size. Mediastinal and hilar contours appear normal. LINES/TUBES: ??None. BONES: ??No acute osseous abnormality. IMPRESSION: No acute cardiopulmonary abnormality. THIS IS AN ELECTRONICALLY VERIFIED FINAL REPORT 03/29/2024 12:57 AM - Electronically signed by ??Dwain Mclaughlin M.D. KH: ELODIA D: ??03/29/2024 12:57 AM T: ??03/29/2024 12:57 AM Report ID: [id number] Reading Location: ??[id number] Procedure Note Dwain Mclaughlin MD - 03/29/2024 EXAM DESCRIPTION: XR CHEST PA LATERAL 2 VIEWS REASON FOR STUDY: persistent cough Checking for possible pneumonia. Complaints of coughing up blood, SOB.Hx of asthma. Former smoker. Hx of fractured ribs x 3 years ago. Nosurgery to heart/lungs. TECHNIQUE: 3 radiographic view(s) of the chest. COMPARISON: 01/09/2024 FINDINGS: LUNGS: No focal opacity, pleural effusion, or pneumothorax. HEART/MEDIASTINUM: Cardiac silhouette normal in size. Mediastinal andhilar contours appear normal. LINES/TUBES: None. BONES: No acute osseous abnormality. IMPRESSION: No acute cardiopulmonary abnormality. THIS IS AN ELECTRONICALLY VERIFIED FINAL REPORT 03/29/2024 12:57 AM - Electronically signed by Dwain Mclaughlin M.D. KH: ELODIA Report ID: [id number] Reading Location: [place] [address] Shan Chou MD IMG XR PROCEDURES F inal Result * eGFR (03/27/2024 11:28 AM CDT) eGFR 73 >=60 mL/min/1. 73 m2 Comment: Interpretive Data Reference Interval Normal ?>/= 90 mL/min/1.73m2 Mildly decreased* ? 60 - 89 mL/min/1.73m2 Mildly to moderately decreased ?45 - 59 mL/min/1.73m2 Moderately to severely decreased ??30 - 44 mL/min/1.73m2 Severely decreased ?15 - 29 mL/min/1.73m2 Kidney Failure ?< 15 ??mL/min/1.73m2 *Relative to young adult level Estimated glomerular filtration rate is determined by the 2020 CKD-EPI equation recommended by the National Kidney Foundation (A Unifying Approach to GFR Estimation: Recommendations of the NKF-ASK Task Force on Reassessing the Inclusion of Race in Diagnosing Kidney Disease, JASN 2020). The CKD-EPI equation should not be used for patients with unstable renal function and has not been validated in children and those over 70. Current interpretive data was last reviewed 2021. Blood 03/27/2024 11:2 8 AM CDT 03/27/2024 11:58 AM CDT us Shan Chou MD LAB BLOOD ORDERABLE S Final Result [facility] ([place]) [facility] Department [place] [address] * (ABNORMAL) Differential, auto (03/27/2024 11:28 AM CDT) Neutrophil abs 4.5 1.5 - 6.5 K/cumm Imm gran abs 0.0 0.0 - 0.1 K/cumm [facility] ([place]) Lymphocyte abs 2.2 0.8 - 3.3 K/cumm [facility] ([place]) Monocyte abs 0.9(H) 0.2 - 0.8 K/cumm [facility] ([place]) Eosinophil abs 0.6(H) 0.0 - 0.5 K/cumm [facility] ([place]) Basophil abs 0.1 0.0 - 0.1 K/cumm [facility] ([place]) Neutrophil pct 54.3 % [facility] ([place]) Comment: Interpretive Data Percent cell count reference ranges are not reported, since discordance with absolute values may lead to misinterpretation of CBC data. Current Interpretive Data was last revised on 2017. Imm gran pct 0.2 % [facility] ([place]) Comment: Interpretive Data Percent cell count reference ranges are not reported, since discordance with absolute values may lead to misinterpretation of CBC data. Current Interpretive Data was last revised on 2017. Lymphocyte pct 26.4 % [facility] ([place]) Comment: Interpretive Data Percent cell count reference ranges are not reported, since discordance with absolute values may lead to misinterpretation of CBC data. Current Interpretive Data was last revised on 2017. Monocyte pct 10.9 % [facility] ([place]) Comment: Interpretive Data Percent cell count reference ranges are not reported, since discordance with absolute values may lead to misinterpretation of CBC data. Current Interpretive Data was last revised on 2017. Eosinophil pct 7.0 % [facility] ([place]) Comment: Interpretive Data Percent cell count reference ranges are not reported, since discordance with absolute values may lead to misinterpretation of CBC data. Current Interpretive Data was last revised on 2017. Basophil pct 1.2 % [facility] ([place]) Comment: Interpretive Data Percent cell count reference ranges are not reported, since discordance with absolute values may lead to misinterpretation of CBC data. Current Interpretive Data was last revised on 2017. Blood 03/27/2024 11:2 8 AM CDT 03/27/2024 11:58 AM CDT us Shan Chou MD LAB BLOOD ORDERABLE S Final Result [facility] ([place] Department [place] [address] * CBC with auto differential (03/27/2024 11:28 AM CDT) WBC 8.3 3.8 - 9.9 K/cumm Hgb 14.6 13.0 - 17.5 g/dL [facility] ([place]) Hct 42.7 38.9 - 50.3 % [facility] ([place]) Plt 187 150 - 400 K/cumm [facility] ([place]) MPV 12.0 9.1 - 12.3 fL [facility] ([place]) RBC 4.84 4.30 - 5.80 M/cumm [facility] ([place]) MCV 88.2 81.3 - 96.4 fL [facility] ([place]) MCH 30.2 27.1 - 33.3 pg [facility] ([place]) MCHC 34.2 32.3 - 35.7 g/dL [facility] ([place]) RDW CV 12.4 11.1 - 14.9 % [facility] ([place]) RDW SD 40.0 35.7 - 48.1 fL [facility] ([place]) NRBC abs 0.00 0.00 - 0.01 K/cumm [facility] ([place]) Blood 03/27/2024 11:2 8 AM CDT 03/27/2024 11:58 AM CDT us Shan Chou MD LAB BLOOD ORDERABLE S Final Result [facility] ([place] Department [place] [address] * (ABNORMAL) Comprehensive metabolic panel (03/27/2024 11:28 AM CDT) Sodium 135 135 - 145 mmol/L Potassium, pl 4.2 3.3 - 4.9 mmol/L [facility] ([place]) Chloride 100 97 - 110 mmol/L [facility] ([place]) CO2 27 22 - 32 mmol/L [facility] Anion gap 9 2 - 15 mmol/L [facility] BUN 22 6 - 25 mg/dL [facility] ([place]) Creatinine 1.32(H) 0.80 - 1.30 mg/dL [facility] ([place]) Glucose 98 70 - 199 mg/dL [facility] ([place]) Comment: Interpretive Data Fasting glucose >/= 126 mg/dl is diagnostic for diabetes. ?? Fasting is defined as no caloric intake for at least 8 hours. Fasting glucose between 100 mg/dl to 125 mg/dl is diagnostic of prediabetes. In a patient with classic symptoms of hyperglycemia or hyperglycemic crisis, a random glucose >/= 200 mg/dl is diagnostic for diabetes. In the absence of unequivocal hyperglycemia, results should be confirmed by repeat testing. The classification and Diagnosis of Diabetes Diabetes Care 2021; 46: S19-S40. Current interpretive data was last revised 2022. Calcium 9.1 8.5 - 10.3 mg/dL [facility] ([place]) Bilirubin, total <0.2 0.1 - 1.2 mg/dL [facility] ([place]) Protein, pl 6.9 6.5 - 8.5 g/dL [facility] ([place]) Albumin 4.1 3.5 - 5.0 g/dL [facility] ([place]) Alk phos 96 40 - 130 Units/L [facility] ([place]) ALT 19 7 - 55 Units/L [facility] ([place]) AST 24 10 - 50 Units/L [facility] ([place]) Comment: Hemolysis present. ??Results may be affected. Slightly Hemolyzed Specimen Blood 03/27/2024 11:2 8 AM CDT 03/27/2024 11:58 AM CDT Shan Chou MD LAB BLOOD ORDERABLE S Final Result Performing Organization Address City/State/[facility] [[email or web address]] Co de Phone Number [facility] ([place]) [facility] Department [place] [address] from Last 3 Months Insurance [facility] [place] [id number] Advance Directives For more information, please contact: [phone] * Full Code (Latest Code Status on File) Date Activated Date Inactivated Comments 04/06/2024 11:42 AM 04/06/2024 6:30 PM * Full Code Date Activated Date Inactivated Comments 04/06/2024 11:42 AM 04/06/2024 11:42 AM Care Teams Physiology Teacher Relationship Specialty Start Date End Date Shan Chou MD [address] [place] [address] PCP - General Family Practice 03/27/24
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
--- OUTSIDE RECORDS SUMMARY | 2024-06-10 14:57 | XMS_ITS | Encounter Summary ---
Author Organization [facility] Healthcare Address [address] [place] [id number] Care Team Providers Care Occupational Therapist Name Role Phone Shan Chou MD [facility] Encounter Details Date Type Department Care Team (Latest Contact Info) Description 03/27/2024 11:22 AM CDT - 03/27/2024 11:59 PM CDT Hospital Encounter [facility] [address] [place] [id number] Persistent cough for 3 weeks or longer Discharge Disposition: Discharge to home or self care Social History Tobacco Use Types Packs/Day Years Used Date Smoking Tobacco: Smoker, Current Status Unknown Cigarettes Alcohol Use Standard Drinks/Week Comments Yes 0 (1 standard drink = 0.6 oz pur e alcohol) 3 times a week PHQ-2 Answer Date Recorded PHQ-2 Total Score (If total score is 3 or more points, staff should administer the PHQ-9) 0 03/27/2024 Personal Safety Answer Date Recorded Have you ever been in or are you currently in a harmful physical or emotional relationship or is someone making you feel afraid or unsafe? 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 Gender Identity Not on file Sexual Orientation Not on file documented as of this encounter Medications at Time of Discharge albuterol HFA (PROVENTIL HFA,VENTOLIN HFA,PROAIR HFA) 90 mcg/actuation inhaler 01/17/2024 buPROPion XL (WELLBUTRIN XL) 300 mg 24 hr tabletIndications :Bipolar disorder, in partial remission, most recent episode mixed (CMS/HCC) (HCC) Take 1 tablet (300 mg total) by mouth every morning 90 tablet 1 03/27/2024 09/23/2024 lamoTRIgine (LaMICtal) 200 mg tablet Take 1 tablet (200 mg total) by mouth daily 90 tablet 1 03/27/2024 09/23/2024 naltrexone (DEPADE) 50 mg tablet Take 1 tablet (50 mg total) by mouth daily 90 tablet 1 03/27/2024 09/23/2024 propranoloL (INDERAL) 20 mg tablet 02/19/2024 hydrOXYzine (VISTARIL) 50 mg capsuleIndication s:anxiety Take 1 capsule (50 mg total) by mouth 3 (three) times a day as needed for itching 90 capsule 1 03/27/2024 04/24/2024 ibuprofen (ADVIL,MOTRIN) 600 mg tablet Take 1 tablet (600 mg total) by mouth every 6 (six) hours as needed for pain 20 tablet 08/31/2021 04/06/2024 mirtazapine (REMERON) 15 mg tablet 02/21/2024 04/21/[address] (PROTONIX) 40 mg EC tablet Take 1 tablet (40 mg total) by mouth daily 30 tablet 11 03/27/2024 04/06/2024 traZODone (DESYREL) 150 mg tablet 02/19/2024 04/21/2024 Vraylar 1.5 mg capsule capsule 02/21/2024 documented as of this encounter Discharge Disposition Disposition Code Departure Means Destination Discharge to home or self care documented in this encounter Miscellaneous Notes * Result Encounter Note - Adelina Gilman MA - 03/27/2024 11:59 PM CDT Tried to call patient but voicemail was full. documented in this encounter Plan of Treatment Not on file documented as of this encounter Procedures Procedure Name Priority Date/Time Associated Diagnosis Comments XR CHEST PA LATERAL 2 VIEWS Schedule Routine, Read Routine (OP Routine) 03/27/2024 11:57 AM CDT Persistent cough for 3 weeks or longer documented in this encounter Results * XR Chest Pa Lateral 2 Views [...] AM T: ??03/29/2024 12:57 AM Report ID: [id number] Reading Location: ??[id number] Procedure Note Dwain Mclaughlin MD - 03/29/2024 [...] Electronically signed by Dwain Mclaughlin M.D. KH: LEODIA Report ID: [id number] Reading Location: [id number] Shan Chou MD IMG XR PROCEDURES F inal Result documented in this encounter Visit Diagnoses Diagnosis Persistent cough for 3 weeks or longer documented in this encounter Care Teams Occupational Therapist Relationship Specialty Start Date End Date Shan Chou MD [id number] [address] PCP - General Family Practice 03/27/24 documented as of this encounter
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
--- OUTSIDE RECORDS SUMMARY | 2024-06-10 14:57 | XMS_ITS | Encounter Summary ---
Author Organization [facility] Healthcare Address [address] [place] [address] Care Team Providers Care Respiratory Care Assistant Name Role Phone Shan Chou MD Primary Care [facility] Reason for Visit * Auth/Cert (Routine) Specialty Diagnoses / Procedures Referred By Contac t Referred To Contact Diagnoses Gastroesophageal reflux disease with esophagitis without hemorrhage Gastroesophageal reflux disease with esophagitis without hemorrhage [K21.00] Procedures [place] ESOPHAGOGASTRODUODENOSCOPY TRANSORAL DIAGNOSTIC ESOPHAGOGASTRODUODENOSCOPY Referral ID Status Reason Start Date Expiration Date Visits Re quested Visits Authorized [id number] 1 1 Encounter Details Date Type Department Care Team (Latest Contact Info) Description 04/06/2024 12:50 PM CDT - 04/06/2024 1:25 PM CDT Surgery [address] [address] Siri Alves MD [address] [place] [id number] ESOPHAGOGASTRODUODENOSCOPY BIOPSY Surgery Details Date/Time Status Location OR Service Patient Class Case Class Case Type Trauma Case? 04/06/2024 12:50 PM Posted [facility] ENDOSCOPY GI 01 Gastroenterology Outpatient Elective Panel 1 Procedure LRB Anes Op Region Wound Class Comments ESOPHAGOGASTRODUODENOSCOPY BIOPSY N/A Monitor Anesthesia Care Surgeon Surgeon Role Service Panel Siri Alves MD Primary Gastroenterology 1 documented in this encounter Social History Tobacco Use Types Packs/Day Years [...] making you feel afraid or unsafe? Denies 04/06/2024 Sex and Gender Information Value Date Recorded Sex Assigned at Not on file Legal Sex Male 2:39 AM [employer] Gender Identity Not on file Sexual Orientation Not on file documented as of this encounter Last Filed Vital Signs Vital Sign Reading Time Taken Comments Blood Pressure 119/71 04/06/2024 11:50 AM CDT Pulse 70 04/06/2024 11:50 AM CDT Temperature 36.8 ??C (98.3 ??F) 04/06/2024 11:50 AM C DT Respiratory Rate 16 04/06/2024 11:50 AM CDT Oxygen Saturation 98% 04/06/2024 11:50 AM CDT Inhaled Oxygen Concentration - - Weight 92.5 kg (204 lb) 04/06/2024 11:50 AM CDT Height 188 cm (6' 2 ) 04/06/2024 11:50 AM CDT Body Mass Index 26.19 04/06/2024 11:50 AM CDT documented in this encounter Medications at Time of Discharge buPROPion XL (WELLBUTRIN XL) 300 mg 24 [...] 09/23/2024 propranoloL (INDERAL) 20 mg tablet 02/19/2024 albuterol HFA (PROVENTIL HFA,VENTOLIN HFA,PROAIR HFA) 90 mcg/actuation inhaler 01/17/[address] (PROTONIX) 40 mg EC tablet Take 1 tablet (40 mg total) by mouth 2 (two) times a day 60 tablet 11 04/06/2024 04/06/2025 mirtazapine (REMERON) 15 mg tablet 02/21/2024 04/21/2024 Vraylar 1.5 mg capsule capsule 02/21/2024 hydrOXYzine (VISTARIL) 50 mg capsuleIndication s:anxiety Take 1 capsule (50 mg total) by mouth 3 (three) times a day as needed for itching 90 capsule 1 03/27/2024 04/24/2024 traZODone (DESYREL) 150 mg tablet 02/19/2024 04/21/2024 documented as of this encounter Ordered Prescriptions Prescription Sig Dispense Quantity Refills Last Filled Start Date End Date pantoprazole DR (PROTONIX) 40 mg EC tablet Take 1 tablet (40 mg total) by mouth 2 (two) times a day 60 tablet 11 04/06/2024 04/06/2025 documented in this encounter Discharge Disposition Disposition Code Departure Means Destination Comment s Discharge to home or self care documented in this encounter H&P Notes * Siri Alves MD - 04/06/2024 1:52 PM CDT History and Physical Date of visit: 04/06/2024 Subjective: Patient is a 34 y.o. male presented for evaluation for gastroesophageal reflux disease. He has beenon Protonix on and off for years. Have symptoms of regurgitation and breakthrough heartburn Past Medical History: Diagnosis Date Asthma History reviewed. No pertinent surgical history. Medications Prior to Admission Medication Sig Dispense Refill Last Dose buPROPion XL (WELLBUTRIN XL) 300 mg 24 hr tablet Take 1 tablet (300 mg total) by mouth every morning 90 tablet 1 04/06/2024 lamoTRIgine (LaMICtal) 200 mg tablet Take 1 tablet (200 mg total) by mouth daily 90 tablet 1 04/06/2024 mirtazapine (REMERON) 15 mg tablet 04/06/2024 naltrexone (DEPADE) 50 mg tablet Take 1 tablet (50 mg total) by mouth daily 90 tablet 1 04/06/[address] (PROTONIX) 40 mg EC tablet Take 1 tablet (40 mg total) by mouth daily 30 tablet 11 04/06/2024 propranoloL (INDERAL) 20 mg tablet 04/06/2024 Vraylar 1.5 mg capsule capsule 04/06/2024 albuterol HFA (PROVENTIL HFA,VENTOLIN HFA,PROAIR HFA) 90 mcg/actuation inhaler hydrOXYzine (VISTARIL) 50 mg capsule Take 1 capsule (50 mg total) by mouth 3 (three) times a day asneeded for itching 90 capsule 1 ibuprofen (ADVIL,MOTRIN) 600 mg tablet Take 1 tablet (600 mg total) by mouth every 6 (six) hours asneeded for pain 20 tablet 0 traZODone (DESYREL) 150 mg tablet No Known Allergies Social History Tobacco Use Smoking status: Smoker, Current Status Unknown Current packs/day: 1.00 Types: Cigarettes Smokeless tobacco: None Substance and Sexual Activity Drug use: None Sexual activity: None Alcohol Use: Not At Risk (04/06/2024) AUDIT-C Frequency of Alcohol Consumption: Never Average Number of Drinks: Patient does not drink Frequency of Binge Drinking: Not on file No family history on file. Physical Exam: Patient is awake and answers well. Eyes: no jaundice. Lungs: CTA anteriorly. ENT: no mouth ulcers. Abdomen: soft, no distention, no tenderness, bowel sounds positive. Extremities: no edema. Skin: no rash. GI IMPRESSION: Gastroesophageal reflux disease GI PLAN/RECOMMENDATIONS: EGD Siri Alves MD documented in this encounter Procedure Notes * Siri Alves MD - 04/06/2024 1:04 PM CDTAssociated Order(s): [facility] Patient Name: Paul Cortez Procedure Date: 04/06/2024 1:04 PM Date of : 1990 Admit Type: Outpatient Age: 34 Gender: Male Attending MD: Siri Alves M.D. Room: [facility] ENDOSCOPY ROOM 1 Note Status: Finalized Patient Profile: This is a 34 year old male. Long history of gastroesophageal reflux disease and takes Protonix intermittently. Have symptoms of regurgitation and heartburn intermittently Procedure: Upper GI endoscopy Indications: Heartburn, Suspected esophageal reflux Referring MD: Shan Chou M.D. Providers: Siri Alves M.D. Impression: - Erythematous mucosa in the prepyloric region of the stomach likely nonspecific. Biopsied for CLOtest. - 3 cm hiatal hernia. 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 Biopsied. Recommendation: - Await pathology results. - Repeat upper endoscopy in 1 year for surveillance. - Follow an antireflux regimen. - Increase Protonix to 40 mg tablets twice daily for the next 6 months and then once daily again indefinitely. Medicines: Monitored Anesthesia Care Complications: No immediate complications. Estimated Blood Loss: Estimated blood loss: none. Procedure: Pre-Anesthesia Assessment: - Prior to the procedure, a History and Physical was performed, and patient medications and allergies were reviewed. The patient's tolerance of previous anesthesia was also reviewed. The risks and benefits of the procedure and the sedation options and risks were discussed with the patient. All questions were answered, and informed consent was obtained. Prior Anticoagulants: The patient has taken no anticoagulant or antiplatelet agents. ASA Grade Assessment: Per anesthesia note and evaluation. After reviewing the risks and benefits, the patient was deemed in satisfactory condition to undergo the procedure. The benefits, risks, and alternatives to the procedure and sedation were discussed and informed consent was obtained. The scope was passed under direct vision. The Endoscope GIF-H190 [id number] was introduced through the mouth, and advanced to the second part of duodenum. The upper GI endoscopy was accomplished without difficulty. The patient tolerated the procedure well. Findings: The examined duodenum was normal. Mucosa appeared normal. Diffuse mildly erythematous mucosa without bleeding was found in the prepyloric region of the stomach. Biopsies were taken with a cold forceps for Helicobacter pylori testing using CLOtest. The gastric body and fundus appeared unremarkable otherwise. Retroflexion in the stomach showed the hiatal hernia. A 3 cm [...] cm. A total of 2 specimen bottles were sent to pathology. The GE junction was noted at the 37 cm from the mouth opening at the Z-line was at 27 cm from the mouth opening Electronically signed by Siri Alves M.D. Siri Alves M.D. 04/06/2024 1:57:47 PM Number of Addenda: 0 Note Initiated On: 04/06/2024 1:04 PM Procedure Code(s): --- Professional --- 90748, Esophagogastroduodenoscopy, flexible, transoral; with biopsy, single or multiple Diagnosis Code(s): --- Professional --- K22.89, Other specified disease of esophagus K31.89, Other diseases of stomach and duodenum K44.9, Diaphragmatic hernia without obstruction or gangrene R12, Heartburn CPT copyright 2020 [employer]. All rights reserved. The codes documented in this report are preliminary and upon charm filter operator helper review may be revised to meet current compliance requirements. Recognized by the [employer] for promoting quality in endoscopy documented in this encounter Miscellaneous Notes * Perioperative Nursing Note - Dottie Su RN - 04/06/2024 2:12 PM CDT Patient is to follow antireflux regimen, do not lied down for 3-4 hours after meals, increase protonix to 40 mg twice a day for the next 6 months and then daily indefinitely. Avoid excess acidic food. Follow gerd diet. documented in this encounter Plan of Treatment Scheduled Orders Name Type Priority Associated Diagnoses Orde r Schedule Surgical pathology Pathology and Cytology Timed Gastroesophageal reflux disease with esophagitis without hemorrhage Release Upon Ordering for 1 Occurrences starting 04/06/2024 documented as of this encounter Procedures Procedure Name Priority Date/Time Associated Diagnosis Comments H. PYLORI UREASE SCREEN (IVONNE TEST) STAT 04/06/2024 1:15 PM CDT EGD 04/06/2024 1:04 PM CDT ESOPHAGOGASTRODUODENOSCOPY BIOPSY 04/06/2024 1:03 PM CDT Gastroesophageal reflux disease with esophagitis without hemorrhage documented in this encounter Results * H. pylori urease screen (IVONNE test) Tissue (04/06/2024 1:15 PM CDT) H. pylori, rapid (IVONNE) Negative Negative Tissue 04/06/2024 1:15 PM CDT 04/06/2024 4:45 PM CDT Siri Alves MD LAB MICROBIOLOGY - GENERAL ORDERABLES Final Result [facility] Department [place] [address] * EGD (04/06/2024 1:04 PM CDT) Anatomical Region Laterality Modality Other Narrative Procedure Note Siri Alves MD - 04/06/2024 1:04 PM CDT [facility] Patient Name: Paul Cortez Procedure Date: 04/06/2024 1:04 PM Date of : 1990 Admit Type: Outpatient Age: 34 Gender: Male Attending MD: Siri Alves M.D. Room: [facility] END[facility]COPY ROOM 1 Note Status: Finalized Patient [...] passed under direct vision. The Endoscope GIF-H190 [id number] was introduced through the mouth, and advanced [...] 1:04 PM Procedure Code(s): --- Professional --- 90182, Esophagogastroduodenoscopy, flexible, transoral; with biopsy, single or multiple Diagnosis Code(s): --- Professional --- K22.89, Other specified disease of esophagus K31.89, Other diseases of stomach and duodenum K44.9, Diaphragmatic hernia without obstruction or gangrene R12, Heartburn CPT copyright 2020 [employer]. All rights reserved. The codes documented in this report are preliminary and upon charm filter operator helper reviewmay be revised to meet current compliance requirements. Recognized by the [employer] for promoting quality in endoscopy Siri Alevs MD ENDOSCOPY PROCEDURES Final Result documented in this encounter Visit Diagnoses Diagnosis Gastroesophageal reflux disease with esophagitis without hemorrhage- Primary Gastroesophageal reflux disease with esophagitis without hemorrhage documented in this encounter Admitting Diagnoses Diagnosis Gastroesophageal reflux disease with esophagitis without hemorrhage documented in this encounter Administered Medications Inactive Administered Medications - up to 3 most recent administrations Medication Order MAR Action Action Date Dose Rate Site ondansetron (ZOFRAN) injection 4 mg 4 mg, intravenous, Administer over 2 Minutes, Every 30 min PRN, nausea, vomiting, Starting on Maryuri 04/06/24 at 1142, For 2 doses, Recovery (GI), Indications: Nausea and VomitingIndications:Nausea and Vomiting sodium chloride 0.9% flush 0.5-20 mL 0.5-20 mL, intra-catheter, As needed, line care, Starting on Wed04/06/24 at 1142, Pre-Procedure (GI), Flush volume based on line type and size. Flush before and after each use. sodium chloride 0.9% infusion 30 mL/hr, intravenous, Continuous, Starting on Wed04/06/24 at 1215, Pre-Procedure (GI) sodium chloride 0.9% infusion 125 mL/hr, intravenous, Continuous, Starting on Maryuri 04/06/24 at 1215, Recovery (GI) documented in this encounter Discontinued Medications Medication Sig Discontinue Reason Start Date End Da te pantoprazole DR (PROTONIX) 40 mg EC tablet Take 1 tablet (40 mg total) by mouth daily 03/27/2024 04/06/2024 ibuprofen (ADVIL,MOTRIN) 600 mg tablet Take 1 tablet (600 mg total) by mouth every 6 (six) hours as needed for pain Stop Taking at Discharge 08/31/2021 04/06/2024 documented as of this encounter Active and Recently Administered Medications Times are shown in CDT. Continuous Medication Order 04/04/2024 04/05/2024 04/06/2024 sodium chloride 0.9% infusion 30 mL/hr, intravenous, Continuous, Starting on Maryuri 04/06/24 at 1215, Pre-Procedure (GI) 1215 (Due) sodium chloride 0.9% infusion 125 mL/hr, intravenous, Continuous, Starting on Maryuri 04/06/24 at 1215, Recovery (GI) 1215 (Due) PRN Medication Order 04/04/2024 04/05/2024 04/06/2024 ondansetron (ZOFRAN) injection 4 mg 4 mg, intravenous, Administer over 2 Minutes, Every 30 min PRN, nausea, vomiting, Starting on Maryuri 04/06/24 at 1142, For 2 doses, Recovery (GI), Indications: Nausea and Vomiting sodium chloride 0.9% flush 0.5-20 mL 0.5-20 mL, intra-catheter, As needed, line care, Starting on Maryuri 04/06/24 at 1142, Pre-Procedure (GI), Flush volume based on line type and size. Flush before and after each use. documented in this encounter Orders Medications Ordered That Tone ht Not Have Been Administered Count Last Ordered Date First Ordered Date ondansetron (ZOFRAN) injection 4 mg 1 04/06 sodium chloride 0.9% flush 0.5-20 mL 1 03/09 sodium chloride 0.9% infusion 2 04/06/2024 Discharge Count Last Ordered Date First Orde red Date DISCHARGE PATIENT 1 04/06/2024 documented in this encounter Care Teams Respiratory Care Assistant Relationship Specialty Start Date End Date Shan Chou MD [address] [facility] [address] [place] [address] PCP - General Family Practice 03/27/24 documented as of this encounter
--- OUTSIDE RECORDS SUMMARY | 2024-06-10 14:57 | XMS_ITS | Encounter Summary ---
Author Organization [facility] Address [address] [place] [address] Care Team Providers Care Nursing Unit Manager Name Role Phone Shan Chou MD Primary Care Provi clement Reason for Visit * Auth/Cert (Routine) Specialty Diagnoses / Procedures Referred By Contjoce t Referred To Contact Diagnoses Gastroesophageal reflux disease with esophagitis without hemorrhage Gastroesophageal reflux disease with esophagitis without hemorrhage [K21.00] Procedures [place] ESOPHAGOGASTRODUODENOSCOPY TRANSORAL DIAGNOSTIC ESOPHAGOGASTRODUODENOSCOPY Referral ID Status Reason Start Date Expiration Date Visits Re quested Visits Authorized [id number] 1 1 Encounter Details Date Type Department Care Team (Late st Contact Info) Description 04/06/2024 1:11 PM CDT Anesthesia Event [address] [address] Shan Fritz MD [address] [place] [address] Anesthesia Record Procedure Summary Procedure Name Responsible Anesthesiologist Anesthesia Start Time Anesthesia Stop Time ESOPHAGOGASTRODUODENOSCOPY BIOPSY Shan Fritz MD 04/06/24 1311 04/06/24 1322 Events Date Time Event Comment 04/06/2024 1252 1308 In Room 1311 An Start 1311 An Start Data 1312 Start Supplemental O2 1312 Patient Positioned Laterally 1312 An Induction The patient was reevaluated immediately before moderate or deep sedation use and before anesthesia induction. 1312 Anesthesia Ready 1314 Proc Start 1322 Proc Fin 1322 an stop data 1322 Handoff to RN I completed my handoff to the receiving nurse during which we: 1. Patient identified 2. Responsible provider identified 3. Pertinent medical history reviewed 4. Procedure type and surgical course discussed 5. Intraoperative anesthetic management and any significant issues discussed 6. Expectations and concerns for postop period discussed 7. Questions solicited from receiving nurse 8. Patient disposition at the time of handoff: No value filed. 1322 An Stop 1326 Out of Room Meds Name Total lidocaine (cardiac) syringe 2 % 120 mg propofol 200 mg ketamine 10 mg/mL - 20 mL 20 mg * Agents No agents on file. * Blood No blood administrations on file. Lines, Drains, and Airways Type Details Placement Removal Peripheral IV Placement Date: 09/28; Placement Time: 1226; Catheter Size: 20 G; Orientation: Left; Location: Antecubital; Removal Date: 04/06/24; Removal Time: 1300 01/09/24 1226 by Savannah Nava RN 04/06/24 1300 by Dottie Su RN Peripheral IV Placement Date: 03/09 06/30; Placement Time: 1300; Catheter Size: 22 G; Orientation: Posterior, Right; Location: Hand; Site Prep: Chlorhexidine; Inserted by: Caryn Gallagher; Removal Date: 05/13/24; Removal Time: 1610; Removal Reason: Not present on admission 04/06/24 1300 by Dottie Su RN 05/13/24 1610 by Nemo Mackay RN documented in this encounter Social History Tobacco [...] on file 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 Gender Identity Not on file Sexual Orientation Not on file documented as of this encounter OR Notes * Anesthesia Postprocedure Evaluation - Shan Fritz MD - 04/06/2024 1:26 PM CDT Patient: Paul Cortez Procedure Summary Date: 04/06/24 Room / Location: [facility] ROOM 1 / [facility] Anesthesia Start: 1311 Anesthesia Stop: 1322 Procedure: ESOPHAGOGASTRODUODENOSCOPY BIOPSY Diagnosis: Gastroesophageal reflux disease with esophagitis without hemorrhage (Gastroesophageal reflux disease with esophagitis without hemorrhage [K21.00]) Providers: Siri Alves MD Responsible Provider: Shan Fritz MD Anesthesia Type: general/TIVA ASA Status: 2 Anesthesia Type: general/TIVA Last vitals BP 119/71 Pulse 70 Temp 36.8 ??C (98.3 ??F) (Temporal) Resp 16 SpO2 98% Anesthesia Post Evaluation Patient location during evaluation: PACU Patient participation: waiting for patient participation Level of consciousness: arouses reading interventionist Pain score: 0 Pain management: adequate Airway patency: adequate Evidence of recall: no Cardiovascular status: acceptable Respiratory status: acceptable Hydration status: acceptable Pt is: normothermic Nausea/Vomiting status: none No notable events documented. * Anesthesia Preprocedure Evaluation - Shan Fritz MD - 04/06/2024 11:23 AM CDT Images from the original note were not included. Anesthesia Evaluation Paul Cortez is a 34 y.o. male ESOPHAGOGASTRODUODENOSCOPY Pre-Op Diagnosis Codes: * Gastroesophageal reflux disease with esophagitis without hemorrhage [K21.00] HISTORY Past Medical History Information obtained from: patient and chart. Information obtained during: In Person Neurological + Psychiatric history - bipolar Respiratory + Asthma + Current smoker - Counseled to abstain from smoking the day of surgery. Patient refrained from smoking on day of surgery. Hepatic / Heme Comments: Hx of alcohol abuse Gastrointestinal + GERD - on daily therapy. Review of Systems Comments: Hx of drug abuse Patient Active Problem List Diagnosis Date Noted Bipolar disorder, in partial remission, most recent episode mixed ([facility] ([facility]) 03/27/2024 Drug abuse ([facility]) ([facility]) 03/27/2024 Alcohol abuse 03/27/2024 Gastroesophageal reflux disease with esophagitis without hemorrhage 03/27/2024 Persistent cough for 3 weeks or longer 03/27/2024 Routine adult health maintenance 03/23/2024 Past Medical History: Diagnosis Date Asthma History reviewed. No pertinent surgical history. No Known Allergies Taking? Last Dose Start Date End Date Provider albuterol HFA (PROVENTIL HFA,VENTOLIN HFA,PROAIR HFA) 90 mcg/actuation inhaler -- 01/17/24 -- Natalie Katz MD buPROPion XL (WELLBUTRIN XL) 300 mg 24 hr tablet -- 03/27/24 09/23/24 Shan Chou MD Take 1 tablet (300 mg total) by mouth every morning hydrOXYzine (VISTARIL) 50 mg capsule -- 03/27/24 05/26/24 Shan Chou MD Take 1 capsule (50 mg total) by mouth 3 (three) times a day as needed for itching ibuprofen (ADVIL,MOTRIN) 600 mg tablet -- 08/31/21 -- Malik Mitchell, VARGAS Take 1 tablet (600 mg total) by mouth every 6 (six) hours as needed for pain lamoTRIgine (LaMICtal) 200 mg tablet -- 03/27/24 09/23/24 Shan Chou MD Take 1 tablet (200 mg total) by mouth daily mirtazapine (REMERON) 15 mg tablet -- 02/21/24 -- Natalie Katz MD naltrexone (DEPADE) 50 mg tablet -- 03/27/24 09/23/24 Shan Chou MD Take 1 tablet (50 mg total) by mouth daily pantoprazole DR (PROTONIX) 40 mg EC tablet -- 03/27/24 03/27/25 Shan Chou MD Take 1 tablet (40 mg total) by mouth daily propranoloL (INDERAL) 20 mg tablet -- 02/19/24 -- Natalie Katz MD traZODone (DESYREL) 150 mg tablet -- 02/19/24 -- Natalie Katz MD Vraylar 1.5 mg capsule capsule -- 02/21/24 -- Natalie Katz MD No current facility-administered medications for this encounter. Social History Tobacco Use Smoking Status Smoker, Current Status Unknown Current packs/day: 1.00 Types: Cigarettes Smokeless Tobacco Not on file Alcohol Use: Not on file Substance and Sexual Activity Drug Use Not on file No family history on file. There were no vitals filed for this visit. PT: No results found for requested labs within last 30 days. INR: No results found for requested labs within last 30 days. APTT: No results found for requested labs within last 30 days. Hgb A1C: No results found for requested labs within last 30 days. CBC RBC: 03/27/2024: 4.84 M/cumm RDW: No results found for requested labs within last 30 days. MCHC: 03/27/2024: 34.2 g/dL MCH: 03/27/2024: 30.2 pg MCV: 03/27/2024: 88.2 fL Hct: 03/27/2024: 42.7 % Hgb: 03/27/2024: 14.6 g/dL WBC: 03/27/2024: 8.3 K/cumm MPV: 03/27/2024: 12.0 fL Platelets: 03/27/2024: 187 K/cumm RDW CV: 03/27/2024: 12.4 % RDW Sd: 03/27/2024: 40.0 fL BMP Glucose: 03/27/2024: 98 mg/dL Calcium: 03/27/2024: 9.1 mg/dL Sodium: 03/27/2024: 135 mmol/L Potassium: 03/27/2024: 4.2 mmol/L CO2: 03/27/2024: 27 mmol/L Chloride: 03/27/2024: 100 mmol/L BUN: 03/27/2024: 22 mg/dL Creatinine: 03/27/2024: 1.32 mg/dL (H) DOS Physical Exam Medical history, medications, and allergies reviewed. Attestation: This PAT evaluation 04/06/2024. Airway Exam: Mallampati: II Cervical ROM: FROM TM distance: >4 Cardiovascular Exam: Rate: regular Rhythm: regular Pulmonary Exam: LCTA, bilat EENT Exam: trachea midline Current state: Patient's current state is cooperative. Anesthesia Plan ASA 2 My patient is approved for the Anesthesia Controlled Medication protocol when under care of a DU[employer]ER [employer]ER Planned anesthesia: General/TIVA Induction: Induction: intravenous. Postoperative Plan: Patient's planned disposition post procedure is Floor. Informed Consent: Discussed plan with [employer]ER and attending. Anesthesia plan and risks discussed with patient. Consent and Attending signature: I and/or my designee have discussed the anesthesia plan, benefits, possible alternatives, parental presence at time of induction (if indicated), and clinically relevant risks that may include dental injury, unintentional awareness, and/or other complications. The patient and/or parent/legal guardian understand, and agree to proceed. All questions answered. documented in this encounter Plan of Treatment Not on file documented as of this encounter Visit Diagnoses Not on filedocumented in this encounter Administered Medications Inactive Administered Medications - up to 3 most recent administrations Medication Order MAR Action Action Date Dose Rate Site ketamine (KETALAR) injection intravenous, Administer over 2 Minutes, As needed, Starting on Maryuri 04/06/24 at 1311, Anesthesia Intra-op Given 04/06/2024 1:18 PM CDT 10 mg Given 04/06/2024 1:11 PM CDT 10 mg lidocaine (PF) (XYLOCAINE) 20 mg/mL (2 %) preservative free injection intravenous, As needed, Starting on Maryuri 04/06/24 at 1311, Anesthesia Intra-op Given 04/06/2024 1:11 PM CDT 120 mg propofoL (DIPRIVAN) 10 mg/mL IV intravenous, As needed, Starting on Maryuri 04/06/24 at 1311, Anesthesia Intra-op Given 04/06/2024 1:16 PM CDT 100 mg Given 04/06/2024 1:11 PM CDT 100 mg documented in this encounter Care Teams Nursing Unit Manager Relationship Specialty Start Date End Date Shan Chou MD [address] [facility] [address], [place] [address] PCP - General Family Practice 03/27/24 documented as of this encounter
--- OUTSIDE RECORDS SUMMARY | 2024-06-10 14:57 | XMS_ITS | Referral Summary ---
Author Organization [facility] Address [address] [place] [address] Care Team Providers Care Real Estate Photographer Name Role Phone Shan Chou MD Primary Care Provi clement Encounters Date Type Department Care Team Description 05/13/20 4:30 PM STEREOTYPE MOLDER - 05/13/20 7:00 PM STEREOTYPE MOLDER Emergency [facility] Emergency Department [address] [place] [address] Quintin Lau MD Non-cardiac chest pain (Primary Dx); Methamphetamine abuse (CMS/HCC) (HCC); Alcohol abuse; Minor head injury, initial encounter Discharge Disposition: Discharge to home or self care 04/27/20 10:00 AM STEREOTYPE MOLDER Office Visit [facility] Primary Care at [address] [phone] Shan Chou MD Gastroesophageal reflux disease with esophagitis without hemorrhage (Primary Dx); Tobacco abuse; Persistent cough for 3 weeks or longer 04/24/20 Orders Only [facility] Primary Care at [address] [address] Nemo Gilbert MA Itching (Primary Dx) 04/06/20 Orders Only [address] [address] Siri Alves MD 04/06/20 1:11 PM CDT Anesthesia Event [address] [address] Shan Fritz MD 04/06/20 12:50 PM CDT - 04/06/20 1:25 PM CDT Surgery [address] [address] Siri Alves MD ESOPHAGOGASTRODUODENOSCOPY BIOPSY 04/06/20 11:19 AM CDT - 04/06/20 2:24 PM CDT Hospital Encounter [address] [address] Siri Alves MD Gastroesophageal reflux disease with esophagitis without hemorrhage Discharge Disposition: Discharge to home or self care 03/30/20 Telephone [facility] Gastroenterology at [address], [place] [address] Siri Alves MD 03/29/20 Telephone [facility] Primary Care at [address] [phone] Shan Chou MD Medical Question/Miscellaneous 03/27/20 11:30 AM CDT Lab [address] [address] Alcohol abuse; Persistent cough for 3 weeks or longer 03/27/20 11:22 AM CDT - 03/27/20 11:59 PM CDT Hospital Encounter [address] [address] Persistent cough for 3 weeks or longer Discharge Disposition: Discharge to home or self care 03/27/20 11:00 AM CDT Office Visit [facility] Primary Care at [address] [place] [phone] Shan Chou MD Routine adult health maintenance (Primary Dx); Bipolar disorder, in partial remission, most recent episode mixed (CMS/HCC) (HCC); Drug abuse (CMS/HCC) ([facility]); Alcohol abuse; Gastroesophageal reflux disease with esophagitis without hemorrhage; Persistent cough for 3 weeks or longer from Last 3 Months Allergies No known active allergies Medications albuterol HFA (PROVENTIL HFA,VENTOLIN HFA,PROAIR HFA) 90 mcg/actuation inhaler 4 Active propranoloL (INDERAL) 20 mg tablet 4 Active buPROPion XL (WELLBUTRIN XL) 300 mg 24 hr tabletIndications:B ipolar disorder, in partial remission, most recent episode mixed ([facility]) ([facility]) Take 1 tablet (300 mg total) by [...] in partial remission, most recent episode mixed ([facility]) 03/27/2024 Drug abuse ([facility]) 03/27/2024 Alcohol abuse 03/27/2024 Gastroesophageal reflux dise ase with esophagitis without hemorrhage 03/27/2024 Persistent cough for 3 weeks or longer 4 Routine adult health maintenance 03/23/2024 Immunizations Name Administration Dates Next Due DTP 01/26/1997, 5,05/07/1994,1991,1 08/03/1990 Hep B, Adolescent or Pediatric 01/26/1997,1995,04/10/1996 HiB 09/19/1992,1991,1991 Influenza, Unspecified 03/15/2024(Deferr ed: Patient Refused),03/31/2023(Deferred: Patient Refused),03/15/2023(Deferred: Patient Refused),03/15/2023(Deferred: Patient Refused),03/15/2023(Deferred: Patient Refused) MMR 04/10/1996,09/19/1992 OPV 01/26/1997, 5,05/07/1994,1991,1 08/03/1990 Tdap 05/12/2021 Varicella 04/23/1998 Social History Tobacco Use Types Packs/Day Years [...] on file Legal Sex Male 2:39 AM STEREOTYPE MOLDER Gender Identity Not on file Sexual Orientation Not on file Last Filed Vital Signs Vital Sign Reading Time Taken Comments Blood Pressure 140/84 05/13/2024 6:15 PM STEREOTYPE MOLDER Pulse 82 05/13/2024 6:15 PM STEREOTYPE MOLDER Temperature 36.4 ??C (97.6 ??F) 05/13/2024 3:25 PM CS T Respiratory Rate 19 05/13/2024 3:18 PM STEREOTYPE MOLDER Oxygen Saturation 99% 05/13/2024 6:15 PM STEREOTYPE MOLDER Inhaled Oxygen Concentration - - Weight 90.7 kg (200 lb) 05/13/2024 3:18 PM STEREOTYPE MOLDER Height 190.5 cm (6' 3 ) 05/13/2024 3:18 PM STEREOTYPE MOLDER Body Mass Index 25 05/13/2024 3:18 PM STEREOTYPE MOLDER Plan of Treatment Not on file Procedures Procedure Name Priority Date/Time Associated Diagnosis Comments TROPONIN T HIGH-SENSITIVITY 2-HOUR Timed 05/13/2024 6:[address] HEAD WO CONTRAST ED 05/13/2024 5:36 PM STEREOTYPE MOLDER ETHANOL Add-On 05/13/2024 4:09 PM STEREOTYPE MOLDER EGFR STAT 05/13/2024 4:09 PM STEREOTYPE MOLDER DIFFERENTIAL AUTO STAT 05/13/2024 4:09 PM STEREOTYPE MOLDER TROPONIN T HIGH-SENSITIVITY SERIES (BASELINE, 2HR, 4HR, 6HR) STAT 05/13/2024 4:09 PM STEREOTYPE MOLDER COMPREHENSIVE METABOLIC PANEL STAT 4:09 PM STEREOTYPE MOLDER CBC WITH AUTO DIFFERENTIAL STAT 05/13 4:09 PM STEREOTYPE MOLDER XR CHEST PA LATERAL 2 VIEWS ED 12/2023 3:39 PM STEREOTYPE MOLDER ECG 12-LEAD STAT 05/13/2024 3:15 PM STEREOTYPE MOLDER H. PYLORI UREASE SCREEN (IVONNE TEST) STAT [...] Troponin T high-sensitivity 2-hour (05/13/2024 6:13 PM STEREOTYPE MOLDER) Trop T hs 8 <=22 ng/L Comment: Interpretive Data For further hscTnT resources including the diagnostic algorithm and an aid in interpretation, copy and paste this link: https://nrl.testcatalog.org/show/hsTrop Current Interpretive Data last revised 2020. Trop T hs delta -1 ng/L [facility] ([place]) Trop T hs interp Insignificant [facility] ([place]) Blood 05/13/2024 6:13 PM STEREOTYPE MOLDER 05/13/2024 6:16 PM STEREOTYPE MOLDER Quintin Lau MD LAB BLOOD ORDERABLES Final R esult [facility] ([place]) 1 [facility] [place] [address] * CT Head WO Contrast (05/13/2024 5:36 PM STEREOTYPE MOLDER) Anatomical Region Laterality Modality Head and Neck N/A Computed Tomogra phy 05/13/2024 5:39 PM STEREOTYPE MOLDER Narrative 05/13/2024 5:49 PM STEREOTYPE MOLDER EXAM DESCRIPTION: CT HEAD WO CONTRAST REASON [...] 5:49 PM - Electronically signed by ??Jeremy Liang M.D. MF: LILLIANA D: ??05/13/2024 5:49 PM T: ??05/13/2024 5:49 PM Report ID: [id number] Reading Location: ??[id number] Procedure Note Jeremy Liang, DO - 05/13/2024 [...] 5:49 PM - Electronically signed by Jeremy Liang M.D. MF: LILLIANA Report ID: [id number] Reading Location: [place] [address] Quintin Lau MD IMG CT PROCEDURES Final Resu lt * Troponin T high-sensitivity series (baseline, 2hr, 4hr, 6hr) (05/13/2024 4:09 PM STEREOTYPE MOLDER) Pathologist [facility] Trop T hs 9 <=22 ng/L Comment: Interpretive Data For further hscTnT resources including the diagnostic algorithm and an aid in interpretation, copy and paste this link: https://nrl.testcatalog.org/show/hsTrop Current Interpretive Data last revised 2020. Blood 05/13/2024 4:09 PM STEREOTYPE MOLDER 05/13/2024 4:12 PM STEREOTYPE MOLDER Quintin Lau MD LAB BLOOD ORDERABLES Final R esult [facility] [place]) 1 [facility] [place] [address] * eGFR (05/13/2024 4:09 PM STEREOTYPE MOLDER) [facility] eGFR >90 >=60 mL/min/1. 73 m2 Comment: [...] last reviewed 2021. Blood 05/13/2024 4:09 PM STEREOTYPE MOLDER 05/13/2024 4:12 PM STEREOTYPE MOLDER us Quintin Lau MD LAB BLOOD ORDERABLES Final R esult [facility] ([place]) 1 [facility] [place] [address] * (ABNORMAL) Differential, auto (05/13/2024 4:09 PM STEREOTYPE MOLDER) Neutrophil abs 7.5(H) 1.5 - 6.5 K/cumm Imm gran abs 0.0 0.0 - 0.1 K/cumm [facility] ([place]) Lymphocyte abs 2.0 0.8 - 3.3 K/cumm [facility] ([place]) Monocyte abs 0.8 0.2 - 0.8 K/cumm [facility] ([place]) Eosinophil abs 0.0 0.0 - 0.5 K/cumm [facility] ([place]) Basophil abs 0.1 0.0 - 0.1 K/cumm [facility] ([place]) Neutrophil pct 71.5 % [facility] ([place]) Comment: Interpretive [...] 2017. Monocyte pct 7.6 % [facility] ([place]) Comment: Interpretive Data [...] revised on 2017. Blood 05/13/2024 4:09 PM STEREOTYPE MOLDER 05/13/2024 4:12 PM STEREOTYPE MOLDER us Quintin Lau MD LAB BLOOD ORDERABLES Final R esult [facility] ([place]) 1 [facility] [place] [address] * (ABNORMAL) CBC with auto differential (05/13/2024 4:09 PM STEREOTYPE MOLDER) WBC 10.4(H) 3.8 - 9.9 K/cumm Hgb [...] ([place]) Blood (Blood, Venous) 05/13/2024 4:09 PM STEREOTYPE MOLDER 05/13/2024 4:12 PM STEREOTYPE MOLDER Quintin Lau MD LAB BLOOD ORDERABLES Final R esult [facility] ([place] 1 [facility] [place] [address] * (ABNORMAL) Ethanol (05/13/2024 4:09 PM STEREOTYPE MOLDER) Ethanol 45(H) <=10 mg/dL Comment: Interpretive Data Legal limit of intoxication > or = 80 mg/dL Levels > or = 400 mg/dL are potentially TOXIC. Current interpretive data was last revised on 2018. Blood 05/13/2024 4:09 PM STEREOTYPE MOLDER 05/13/2024 5:09 PM STEREOTYPE MOLDER us Quintin E. Lau MD LAB BLOOD ORDERABLES Final R esult [facility] ([place]) 1 [facility] Department of Laboratories [place], [place] [id number] * (ABNORMAL) Comprehensive metabolic panel (05/13/2024 4:09 PM STEREOTYPE MOLDER) Sodium 138 135 - 145 mmol/L Potassium, pl 3.9 3.3 - 4.9 mmol/L [facility] ([facility]) Chloride 102 97 - 110 mmol/L [facility] ([place]) CO2 21(L) 22 - 32 mmol/L [facility] ([place]) Anion gap 16(H) 2 - [...] [facility] ([place]) Blood 05/13/2024 4:09 PM STEREOTYPE MOLDER 05/13/2024 4:12 PM STEREOTYPE MOLDER us Quintin Lau MD LAB BLOOD ORDERABLES Final R esult [facility] ([place]) 1 [facility] [place] [address] * XR Chest PA Lateral 2 Views (05/13/2024 3:39 PM STEREOTYPE MOLDER) Anatomical Region Laterality Modality Body, Chest N/A Computed Radiogr aphy 05/13/2024 3:39 PM STEREOTYPE MOLDER Narrative 05/13/2024 3:40 PM STEREOTYPE MOLDER EXAM DESCRIPTION: XR CHEST PA LATERAL 2 [...] 3:40 PM - Electronically signed by ??Jeremy White M.D. MJ: GORDON D: ??05/13/2024 3:40 PM T: ??05/13/2024 3:40 PM Report ID: [id number] Reading Location: ??[id number] Procedure Note Jeremy White MD - 05/13/2024 [...] 3:40 PM - Electronically signed by Jeremy White M.D. MJ: GORDON Report ID: [id number] Reading Location: [place] [address] Quintin Lau MD IMG XR PROCEDURES Final Resu lt * ECG 12 lead (05/13/2024 3:15 PM STEREOTYPE MOLDER) 05/13/2024 3:15 PM STEREOTYPE MOLDER Narrative [facility] - 05/15/2024 9:30 AM STEREOTYPE MOLDER Vent Rate: 107 bpm RR Interval: 558 msec [place] Interval: 112 msec QRS Duration: 114 msec QT Interval: 345 msec QTC Interval: 408 msec P-R-T [place]: 52 - 85 - 50 degrees IMPRESSION: SINUS TACHYCARDIA WITH SHORT [place] INTERVAL POSSIBLE RIGHT VENTRICULAR CONDUCTION DELAY ??[RSR (QR) IN V1/V2] POSSIBLE INFERIOR MYOCARDIAL INFARCTION , PROBABLY OLD WITH POSTERIOR EXTENSION ??[30 ms Q WAVE IN II/aVFPROMINENT R WAVE IN V1/ ABNORMAL RHYTHM ECG Compared to prior EKG heart rate increased Electronically Signed By: Ervin Roberts MD [facility] Quintin Lau MD ECG ORDERABLES Final Result [facility] * H. pylori urease screen (IVONNE test) Tissue (04/06/2024 1:15 PM CDT) H. pylori, rapid (IVONNE) Negative Negative Tissue 04/06/2024 1:15 PM CDT 04/06/2024 4:45 PM CDT Siri Alves MD LAB MICROBIOLOGY - GENERAL ORDERABLES Final Result [facility] ([place]) 1 [facility] [place] [address] * EGD (04/06/2024 1:04 PM CDT) Anatomical Region Laterality Modality Other Narrative Procedure Note Siri Alves MD - 04/06/2024 1:04 PM CDT [facility] Patient Name: Paul Juan Procedure Date: 04/06/2024 1:04 PM Date of : 1990 Admit Type: Outpatient Age: 34 Gender: Male Attending MD: Siri Alves M.D. Room: [facility] ENDOSCOPY ROOM 1 Note Status: Finalized Patient [...] passed under direct vision. The Endoscope GIF-H190 [id number] was introduced through the mouth, and advanced [...] 1:04 PM Procedure Code(s): --- Professional --- 98806, Esophagogastroduodenoscopy, flexible, transoral; with biopsy, single or multiple Diagnosis Code(s): --- Professional --- K22.89, Other specified disease of esophagus K31.89, Other diseases of stomach and duodenum K44.9, Diaphragmatic hernia without obstruction or gangrene R12, Heartburn CPT copyright 2020 [employer]. All rights reserved. The codes documented in this report are preliminary and upon customs import specialist reviewmay be revised to meet current compliance requirements. Recognized by the [employer] for promoting quality in endoscopy us Siri Alves MD ENDOSCOPY PROCEDURES Final Result * Surgical pathology (04/06/2024 10:30 AM CDT) Gastric/Stomach biopsy 04/06/2024 10:30 AM CDT 04/07/2024 10:30 AM CDT Narrative 04/10/2024 4:04 PM STEREOTYPE MOLDER EPIC results best viewed via link to PDF [facility] Department of Pathology [address] [place] [phone] Note to Patients: This report may contain [...] explain the details. Final Report Patient Name: ??YESSICA PAUL NelyDeann Address: ??[address], ??[place], [place] [address] Gender: ??M : ??1990 (Age: 34) Service: ??Gastro Location: ??[facility] Hospital #: ??[id number] Patient Type: ??[facility] Accession # ?[id number] Taken: ??04/06/2024 Received: ??04/07/2024 Accessioned: ??04/07/2024 Reported: [...] submitted in two formalin containers labeled PAUL JUAN . A. ??The first container is labeled GE junction . It is 4 fragments of manuel tissue measuring 2 mm. All in A. B. ??The second container is labeled esophageal biopsy . It is 3 fragments of manuel tissue between 1 and 2 mm. All in B. T.A. Shelby Escalera., P.Gonzalo./Radha Weston M.D. REPORT IMAGES AND SCANNED DOCUMENTS, IF INCLUDED, ONLY VIEWABLE IN PDF VERSION OF REPORT The performance characteristics of some immunohistochemical stains, fluorescence in-situ hybridization tests and immunophenotyping by flow cytometry cited in this report (if any) were determined by the Surgical Pathology Department at [facility] as part of an ongoing water quality control engineer program and in compliance with federally mandated [...] characteristics determined by the Surgical Pathology Department [facility]. ??It has not been cleared or approved [...] AM T: ??03/29/2024 12:57 AM Report ID: [id number] Reading Location: ??[id number] Procedure Note Dwain Mclaughlin MD - 03/29/2024 [...] Dwain Mclaughlin M.D. KH: ELODIA Report ID: [id number] Reading Location: [id number] us Shan Chou MD IMG XR PROCEDURES F [...] MD LAB BLOOD ORDERABLE S Final Result [facility] [place]) 1 [employer] [facility] Department [place] [employer] [place] [address] * (ABNORMAL) Differential, auto (03/27/2024 11:28 AM [...] S Final Result [facility] ([place]) 1 [facility] [place] [place] [address] * CBC with auto differential (03/27/2024 11:28 [...] ([place]) MCHC 34.2 32.3 - 35.7 g/dL [facility] ([place]) RDW CV 12.4 11.1 - 14.9 % [facility] ([place]) RDW SD 40.0 35.7 - 48.1 fL [facility] ([place]) NRBC abs 0.00 0.00 - 0.01 K/cumm [facility] ([place]) Blood 03/27/2024 11:2 8 AM CDT 03/27/2024 11:58 AM CDT us Shan Chou MD LAB BLOOD ORDERABLE S Final Result [facility] ([place]) 1 [facility] [place] [address] * (ABNORMAL) Comprehensive metabolic panel (03/27/2024 11:28 AM CDT) Sodium 135 135 - 145 mmol/L Potassium, pl 4.2 3.3 - 4.9 mmol/L [facility] ([place]) Chloride 100 97 - 110 mmol/L [facility] ([place]) CO2 27 22 - 32 mmol/L [facility] ([place]) Anion gap 9 2 - 15 mmol/L [facility] ([place]) BUN 22 6 - 25 mg/dL [facility] ([place]) Creatinine 1.32(H) 0.80 - 1.30 mg/dL [facility] ([place]) Glucose 98 70 - 199 mg/dL [facility] ([place] [...] MD LAB BLOOD ORDERABLE S Final Result [facility] 1 [facility] [place] [address] from Last 3 Months Insurance [place] [id number] Advance Directives For more information, please contact: [phone] * Full Code (Latest Code Status on File) Date Activated Date Inactivated Comments 04/06/2024 11:42 AM 04/06/2024 6:30 PM * Full Code Date Activated Date Inactivated Comments 04/06/2024 11:42 AM 04/06/2024 11:42 AM Care Teams Real Estate Photographer Relationship Specialty Start Date End Date Shan Chou MD [address] [place] [address] PCP - General Family Practice 03/27/24
--- OUTSIDE RECORDS SUMMARY | 2024-06-10 14:57 | XMS_ITS | Encounter Summary ---
Author Organization [facility] Healthcare Address [address] [place] [address] Care Team Providers Care Ground Intelligence Officer Name Role Phone Shan Chou MD Primary Care Provi [facility] Encounter Details Date Type Department Care Team (Late st Contact Info) Description 03/30/2024 Telephone [facility] Gastroenterology at [address] [place] [address] Siri Alves MD [address] [place] [address] [address] [place], [place] [phone] Social History Tobacco Use Types Packs/Day Years [...] on file Legal Sex Male 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 Cortez is scheduled for an EGD on 10-31-2024 @ 1:30 pm Pt on blood thinner (if yes, list medication and reason for taking): no Has pt had recent stent placement within the last year: no Pt have pacemaker/defibrillator: no Pt diabetic (if yes, insulin or oral meds): no Pt takes injections for weight loss: no Pt have kidney disease or on dialysis: no Pt on iron: no Mechanical Heart valve: no Instructed pt to call with any medical changes and/or medications/insurance. documented in this encounter Plan of Treatment Not on file documented as of this encounter Visit Diagnoses Diagnosis Gastroesophageal reflux disease with esophagitis without hemorrhage- Primary documented in this encounter Orders Case Request Count Last Ordered Date First Orde red Date CASE REQUEST GI 1 03/30/2024 documented in this encounter Care Teams Ground Intelligence Officer Relationship Specialty Start Date End Date Shan Chou MD [address] [address] PCP - General Family Practice 03/27/24 documented as of this encounter
--- OUTSIDE RECORDS SUMMARY | 2024-06-10 14:57 | XMS_ITS | Encounter Summary ---
Author Organization [facility] Healthcare Address [address] [place] [address] Care Team Providers Care Youth Agent Name Role Phone Shan Chou MD Primary Care Provi clement Reason for Visit * Auth/Cert (Routine) Specialty Diagnoses / Procedures Referred By Contac t Referred To Contact Diagnoses Gastroesophageal reflux disease with esophagitis without hemorrhage Gastroesophageal reflux disease with esophagitis without hemorrhage [K21.00] Procedures AR ESOPHAGOGASTRODUODENOSCOPY TRANSORAL DIAGNOSTIC ESOPHAGOGASTRODUODENOSCOPY Referral ID Status Reason Start Date Expiration Date Visits Re quested Visits Authorized [id number] 1 1 Encounter Details Date Type Department Care Team (Latest Contact Info) Description 04/06/2024 11:19 AM CDT - 04/06/2024 2:24 PM CDT Hospital Encounter [facility] [address] [place] [address] Siri Alves MD [address] [place] [id number] Gastroesophageal reflux disease with esophagitis without hemorrhage [...] on file Legal 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 Room: [facility] ENDOSCOPY ROOM 1 Note Status: Finalized Patient [...] passed under direct vision. The Endoscope GIF-H190 [id number] was introduced through the mouth, and advanced [...] 1:04 PM Procedure Code(s): --- Professional --- 44942, Esophagogastroduodenoscopy, flexible, transoral; with biopsy, single or multiple Diagnosis Code(s): --- Professional --- K22.89, Other specified disease of esophagus K31.89, Other diseases of stomach and duodenum K44.9, Diaphragmatic hernia without obstruction or gangrene R12, Heartburn CPT copyright 2020 [employer]. All rights reserved. The codes documented in this report are preliminary and upon tricot knitting machine operator review may be revised to meet current compliance requirements. Recognized by the [place] for promoting quality [...] 1:15 PM CDT 04/06/2024 4:45 PM CDT us Siri Alves MD LAB MICROBIOLOGY - GENERAL ORDERABLES Final Result [facility] 1 [facility] [place] [address] * EGD (04/06/2024 1:04 PM CDT) Anatomical Region Laterality Modality Other Narrative Procedure Note Siri Alves MD - 04/06/2024 1:04 PM CDT [facility] Patient Name: Paul Cortez Procedure Date: 04/06/2024 1:04 PM Date of : 1990 Admit Type: Outpatient Age: 34 Gender: Male Attending MD: Siri Alves M.D. Room: [facility] ENDOSCOPY RO[facility] 1 Note Status: Finalized Patient Profile: This is a 34 year old male. Long history of gastroesophageal reflux disease and takes Protonix intermittently. Have symptoms of regurgitation and heartburn intermittently Procedure: Upper GI endoscopy Indications: Heartburn, Suspected esophageal reflux Referring MD: Shan Chuo M.D. Providers: Siri Alves M.D. Impression: - [...] passed under direct vision. The Endoscope [id number]-[id number] was introduced through the mouth, and advanced [...] 1:04 PM Procedure Code(s): --- Professional --- 18064, Esophagogastroduodenoscopy, flexible, transoral; with biopsy, single or multiple Diagnosis Code(s): --- Professional --- K22.89, Other specified disease of esophagus K31.89, Other diseases of stomach and duodenum K44.9, Diaphragmatic hernia without obstruction or gangrene R12, Heartburn CPT copyright 2020 [employer]. All rights reserved. The codes documented in this report are preliminary and upon tricot knitting machine operator reviewmay be revised to meet current compliance requirements. Recognized by the [place] for promoting quality in endoscopy Siri Alves MD ENDOSCOPY PROCEDURES Final Result documented in this encounter Visit Diagnoses Diagnosis Gastroesophageal reflux disease with esophagitis without hemorrhage- Primary documented in this encounter Admitting Diagnoses Diagnosis [...] on Maryuri 04/06/24 at 1215, Pre-Procedure (GI) sodium chloride 0.9% [...] 04/06/2024 documented in this encounter Care Teams Youth Agent Relationship Specialty Start Date End Date Shan Chou MD [address] [place] [address] PCP - General Family Practice 03/27/24 documented as of this encounter
--- OUTSIDE RECORDS SUMMARY | 2024-06-10 14:57 | XMS_ITS | Encounter Summary ---
Author Organization [facility]ly [facility] Address [address] [place] [address] Care Team Providers Care Trolley Coach Driver Name Role Phone No, Physician Primary Care Provider [phone] Encounter Details Date Type Department Care Team (Late st Contact Info) Description 10/04/2023 Documentation [facility] Warm Hand Off Program [address] [place], [place] [phone] Uzair Parson Social History Tobacco Use Types Packs/Day Years Used Date Smoking Tobacco: Smoker, Current Status Unknown Cigarettes Alcohol Use Standard Drinks/Week Comments Yes 0 (1 standard drink = 0.6 oz pur e alcohol) 3 times a week Personal Safety Answer Date Recorded Have you ever been in or are you currently in a harmful physical or emotional relationship or is someone making you feel afraid or unsafe? 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 The patient's appearance and behavior presented as alert. The patient's concentration appeared oriented. The patient's thought was logical and speech was normal. Screenings Pt declined services at this time PHQ: DAST: AUDIT: Encounter PEER LANGUAGE PATHOLOGIST met with Pt in ED11. Pt stated that with the help of some family members has an appointment at an IP treatment. Pt was very grateful for PEER LANGUAGE PATHOLOGIST coming by and Pt accepted local resources and was encouraged to contact WHO once Pt is done with IP if they needhelp fining groups or OP. Readiness to Change Pt stated they are going to IP tomorrow []Ambivalent to the need to change []Reluctant to agree to treatment []Unaware of and not interested in the need to change []Rejecting the need to change []Does not identify as having a substance use issue documented in this encounter Plan of Treatment Not on file documented as of this encounter Visit Diagnoses Not on filedocumented in this encounter Care Teams Trolley Coach Driver Relationship Specialty Start Date End Date No, Physician PCP - General 10/04/23 03/26/24 documented as of this encounter
--- OUTSIDE RECORDS SUMMARY | 2024-06-10 14:57 | XMS_ITS | Encounter Summary ---
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 Gender Identity Not on file Sexual Orientation Not on file documented as of this encounter Medications at Time of Discharge cyclobenzaprine (FLEXERIL) 10 mg tablet Take 1 tablet (10 mg total) by mouth nightly 10 tablet 08/31/2021 4 ibuprofen (ADVIL,MOTRIN) 600 mg tablet Take 1 tablet (600 mg total) by mouth every 6 (six) hours as needed for pain 20 tablet 08/31/2021 4 methylPREDNISolo ne (MEDROL DOSEPACK) 4 mg Dosepack follow package directions 21 tablet 08/31/2021 4 ondansetron (ZOFRAN) 4 mg tablet Take 1 tablet (4 mg total) by mouth every 6 (six) hours as needed for nausea or vomiting 8 tablet 04/13/2021 4 documented as of this encounter Discharge Disposition Disposition Code Departure Means Destination Discharge to home or self care documented in this encounter Plan of Treatment Not on file documented as of this encounter Visit Diagnoses Not on filedocumented in this encounter Care Teams Turning Machine Operator Relationship Specialty Start Date End Date No, Physician PCP - General 10/04/23 03/26/24 documented as of this encounter
--- OUTSIDE RECORDS SUMMARY | 2024-06-10 14:57 | XMS_ITS | Encounter Summary ---
Author Organization [facility] Address [address] [place] [address] Phone Care Team Providers Care Sales Producer Name Role Phone Unavailable Primary Care Provider Unavailabl e Encounter Details Date Type Department Care Team (Late st Contact Info) Description 05/09/2021 Telephone [facility] - Family [facility] [address] [place] [address] Jimmy Mccormack, GEETHA Social History Tobacco Use Types Packs/Day Years Used Date Smoking Tobacco: Never Assessed Sex and Gender Information Value Date Recorded Sex Assigned at Not on file Legal Sex Male 11:31 PM CDT Gender Identity Not on file Sexual Orientation Not on file COVID-19 Exposure Response Date Recorded In the last month, have you been in contact with someone who was confirmed or suspected to have Coronavirus / COVID-19? No / Unsure 05/05/2021 11:24 AM PROJECT SUPERINTENDENT documented as of this encounter Miscellaneous Notes * Telephone Encounter - Ryley Chakraborty - 05/09/2021 10:34 AM CST Called to pre-visit, left msg ECT SUPERINTENDENT documented in this encounter Plan of Treatment Not on file documented as of this encounter Visit Diagnoses Not on filedocumented in this encounter
--- OUTSIDE RECORDS SUMMARY | 2024-06-10 14:57 | XMS_ITS | Encounter Summary ---
Author Organization [facility] Healthcare Address [address] [place] [address] Care Team Providers Care Oracle Database Administrator Name Role Phone Shan Chou MD Primary Care [facility] Reason for Referral * Consultation (Routine) - Closed Specialty Diagnoses / Procedures Referred By Contac t Referred To Contact Psychiatry Diagnoses Bipolar disorder, in partial remission, most recent episode mixed (CMS/HCC) ([facility]) Shan Chou MD [address] [address] Phone: tel: fax: [employer] [place] [address] Phone: tel: fax: Referral ID Status Reason Start Date Expiration Date V isits Requested Visits Authorized [id number] Closed Specialty Services Required 03/27/2024 04/26/2025 1 1 Question Answer Please select the performing region: External Order [171] To loc/pos [facility] [[id number]] # of visits: 1 * Consultation (Routine) - Canceled Specialty Diagnoses / Procedures Referred By Contact Referred To Contact Gastroenterology Diagnoses Gastroesophageal reflux disease with esophagitis without hemorrhage Persistent cough for 3 weeks or longer Shan Chou MD [address] [place] [address] Phone: tel: fax: [facility] [place] [address] [facility] [address] [place] [address] Phone: tel: fax: Referral ID Status Reason Start Date Expiration Date Visits Requested Visits Authorized [id number] Canceled Specialty Services Required 03/27/2024 04/26/2025 1 1 Question Answer Process Instructions: THE AMBULATORY REFERRAL TO GASTROENTEROLOGY IS NOT AN ORDER FOR A PROCEDURE (I.E. EGD, COLONOSCOPY.) USE THE DIRECT SCHEDULING CASE REQUEST ORDER (GI50) IF THE PATIENT REQUIRES A PROCEDURE TO BE PERFORMED. Please select the performing region: [facility] [[id number]] Please select the performing department: [facility] [[id number]] # of visits: 1 Reason for Visit * Reason Comments New Patient Encounter Details Date Type Department Care Team (Late st Contact Info) Description 03/27/2024 11:00 AM CDT Office Visit [facility] Primary Care at [address] [place] [phone] Shan Chou MD [address] [place] [id number] Routine adult health maintenance (Primary Dx); Bipolar disorder, in partial remission, most recent episode mixed ([facility]) ([facility]); Drug abuse ([facility]) ([facility]); Alcohol abuse; Gastroesophageal reflux disease with esophagitis without hemorrhage; Persistent cough for 3 weeks or longer Social History Tobacco Use Types Packs/Day Years [...] on file 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 Gender Identity Not on file Sexual Orientation Not on file documented as of this encounter Last Filed Vital Signs Vital Sign Reading Time Taken Comments Blood Pressure 124/66 03/27/2024 10:07 AM CDT Pulse 63 03/27/2024 10:07 AM CDT Temperature 36.6 ??C (97.9 ??F) 03/27/2024 10:07 AM C DT Respiratory Rate - - Oxygen Saturation 98% 03/27/2024 10:07 AM CDT Inhaled Oxygen Concentration - - Weight 92.7 kg (204 lb 4.8 oz) 03/27/2024 10:07 AM CDT Height 188 cm (6' 2.02 ) 03/27/2024 10:07 AM CDT Body Mass Index 26.22 03/27/2024 10:07 AM CDT documented in this encounter Ordered Prescriptions Prescription Sig Dispense Quantity Refills Last Filled Start Date End Date lamoTRIgine (LaMICtal) 200 mg tablet Take 1 tablet (200 mg total) by mouth daily 90 tablet 1 03/27/2024 5 naltrexone (DEPADE) 50 mg tablet Take 1 tablet (50 mg total) by mouth daily 90 tablet 1 03/27/2024 5 buPROPion XL (WELLBUTRIN XL) 300 mg 24 hr tabletIndications: Bipolar disorder, in partial remission, most recent episode mixed (CMS/HCC) (HCC) Take 1 tablet (300 mg total) by mouth every morning 90 tablet 1 03/27/2024 5 hydrOXYzine (VISTARIL) 50 mg capsuleIndications :anxiety Take 1 capsule (50 mg total) by mouth 3 (three) times a day as needed for itching 90 capsule 1 03/27/[address] (PROTONIX) 40 mg EC tablet Take 1 tablet (40 mg total) by mouth daily 30 tablet 11 03/27/2024 4 documented in this encounter Progress Notes * Shan Chou MD - 03/27/2024 11:00 AM CDT Subjective/Objective Patient ID: Paul Cortez is a 34 y.o. male. Diagnoses and all orders for this visit: Routine adult health maintenance (Primary) He is up-to-date on age-appropriate routine health maintenance. All questions answered. Bipolar disorder, in partial remission, most recent episode mixed ([facility]) ([facility]) - Ambulatory referral to Psychiatry; Future - buPROPion XL (WELLBUTRIN XL) 300 mg 24 hr tablet; Take 1 tablet (300 mg total) by mouth every morning I am refilling his medications today to keep him up-to-date but I think that given his complex history I need to have him seeing Psychiatry. He is on two different mood stabilizers and he is not really sure if anything is really helping him a tremendous moderate not. I am going to refer to psychiatry to help work with medications. Drug abuse ([facility]) ([facility]) Congratulated him on staying sober. States he has follow up for this. Alcohol abuse - Comprehensive metabolic panel; Future I am going to go ahead and check a liver and kidney panel on him because of the alcohol history. Gastroesophageal reflux disease with esophagitis without hemorrhage - Ambulatory referral to Gastroenterology; Future He is already taking a PPI on a regular basis and is having significant acid reflux issues anyway. I am going to refer him to GI for evaluation and possible EGD. In the meantime I am changing him over to pantoprazole to see if it will work better for him. Persistent cough for 3 weeks or longer - Ambulatory referral to Gastroenterology; Future - XR Chest Pa Lateral 2 Views; Future - CBC with auto differential; Future Lungs do sound just a little bit junky in the right side but not too bad. This has been going on for several weeks and so I do question if he had an ammonia early on that is resolving on its own. I am going to send him over for a chest x-ray as well as labs. Could be also with the ongoing acid reflux that that could be contributing to his persistent cough. Other orders - pantoprazole DR (PROTONIX) 40 mg EC tablet; Take 1 tablet (40 mg total) by mouth daily - naltrexone (DEPADE) 50 mg tablet; Take 1 tablet (50 mg total) by mouth daily - lamoTRIgine (LaMICtal) 200 mg tablet; Take 1 tablet (200 mg total) by mouth daily - hydrOXYzine (VISTARIL) 50 mg capsule; Take 1 capsule (50 mg total) by mouth 3 (three) times a dayas needed for itching Follow up with me in a month on the breathing and if it is not getting any better then we may want to consider maintenance therapy for asthma. Return in about 1 month (around 04/27/2024) for Recheck asthma. Chief Complaint Chief Complaint Patient presents with New Patient HPI 34-year-old male new to clinic here to establish care and with a few issues related to breathing and asthma. Has a history of asthma and does have an albuterol inhaler. He is also a current pack-a-day smoker. Feels like he's having some discomfort with deep breaths. Prior to a few weeks ago he was able to work out regularly but he started getting congested and now pretty winded with minimal activity. Son did have pneumonia. Just got out of a drug/alcohol rehab facility a couple weeks ago for a total of 5 months. He's now been clean 71. Is on multiple psych meds including Wellbutrin, mirtazapine, pramipexole, trazodone, lamictal, and Vraylar. By his description it sounds like he is bipolar. States Wellbutrin has reallyhelped him a tremendous amount. Also is on a PPI and propranolol. Continues to have a lot of heartburn and acid reflux. States dentist notes damage to teeth. Does not feel the omeprazole a lot for him. States he was given the propranolol d/t higher blood pressure when he was using meth/cocaine. He is up-to-date on immunizations. Patient Active Problem List Diagnosis Date Noted Bipolar disorder, in partial remission, most recent episode mixed ([facility]) ([facility]) 03/27/2024 Drug abuse ([facility]) ([facility]) 03/27/2024 Alcohol abuse 03/27/2024 Gastroesophageal reflux disease with esophagitis without hemorrhage 03/27/2024 Persistent cough for 3 weeks or longer 03/27/2024 Routine adult health maintenance 03/23/2024 Past Medical History: Diagnosis Date Asthma History reviewed. No pertinent surgical history. Current Outpatient Medications Medication Sig Dispense Refill albuterol HFA (PROVENTIL HFA,VENTOLIN HFA,PROAIR HFA) 90 mcg/actuation inhaler ibuprofen (ADVIL,MOTRIN) 600 mg tablet Take 1 tablet (600 mg total) by mouth every 6 (six) hours asneeded for pain 20 tablet 0 mirtazapine (REMERON) 15 mg tablet propranoloL (INDERAL) 20 mg tablet traZODone (DESYREL) 150 mg tablet Vraylar 1.5 mg capsule capsule buPROPion XL (WELLBUTRIN XL) 300 mg 24 hr tablet Take 1 tablet (300 mg total) by mouth every morning 90 tablet 1 hydrOXYzine (VISTARIL) 50 mg capsule Take 1 capsule (50 mg total) by mouth 3 (three) times a day asneeded for itching 90 capsule 1 lamoTRIgine (LaMICtal) 200 mg tablet Take 1 tablet (200 mg total) by mouth daily 90 tablet 1 naltrexone (DEPADE) 50 mg tablet Take 1 tablet (50 mg total) by mouth daily [address] (PROTONIX) 40 mg EC tablet Take 1 tablet (40 mg total) by mouth daily 30 tablet 11 No current facility-administered medications for this visit. Allergies as of 03/27/2024 (No Known Allergies) Social History Tobacco Use Smoking status: Smoker, Current Status Unknown Current packs/day: 1.00 Types: Cigarettes Smokeless tobacco: None Substance and Sexual Activity Drug use: None Sexual activity: None Alcohol Use: Not on file No family history on file. Review of Systems Constitutional: Negative for chills, fatigue and fever. HENT: Positive for congestion. Negative for ear pain, hearing loss, rhinorrhea, sore throat and tinnitus. Eyes: Negative for pain, discharge and visual disturbance. Respiratory: Positive for cough, chest tightness and shortness of breath. Negative for wheezing. Cardiovascular: Negative for chest pain, palpitations and leg swelling. Gastrointestinal: Negative for abdominal pain, constipation, diarrhea, nausea and vomiting. Genitourinary: Negative for dysuria and frequency. Musculoskeletal: Negative for myalgias. Skin: Negative for rash. Neurological: Negative for dizziness, light-headedness and headaches. Psychiatric/Behavioral: The patient is not nervous/anxious. BP 124/66 (BP Location: Right arm, Patient Position: Sitting) Pulse 63 Temp 36.6 ??C (97.9 ??F)(Temporal) Ht 188 cm (6' 2.02 ) Wt 92.7 kg (204 lb 4.8 oz) SpO2 98% BMI 26.22 kg/m?? Physical Exam Vitals and nursing note reviewed. Constitutional: Appearance: Normal appearance. HENT: Head: Normocephalic and atraumatic. Right Ear: External ear normal. Left Ear: External ear normal. Nose: Congestion present. Mouth/Throat: Mouth: Mucous membranes are moist. Eyes: Extraocular Movements: Extraocular movements intact. Conjunctiva/sclera: Conjunctivae normal. Pupils: Pupils are equal, round, and reactive to light. Cardiovascular: Rate and Rhythm: Normal rate and regular rhythm. Pulses: Normal pulses. Heart sounds: Normal heart sounds. No murmur heard. No friction rub. No gallop. Pulmonary: Effort: Pulmonary effort is normal. No respiratory distress. Breath sounds: Rhonchi (Right upper lobe and centrally) present. Abdominal: General: Bowel sounds are normal. Palpations: Abdomen is soft. Musculoskeletal: General: Normal range of motion. Cervical back: Normal range of motion and neck supple. Right lower leg: No edema. Left lower leg: No edema. Skin: General: Skin is warm and dry. Capillary Refill: Capillary refill takes less than 2 seconds. Neurological: General: No focal deficit present. Mental Status: He is alert and oriented to person, place, and time. Cranial Nerves: No cranial nerve deficit. Psychiatric: Mood and Affect: Mood normal. Behavior: Behavior normal. Thought Content: Thought content normal. Judgment: Judgment normal. Lab Results Component Value Date CHOL 146 2019 Lab Results Component Value Date HDL 39 (L) 2019 Lab Results Component Value Date LDLCALC 78 2019 LDLDIRECT 89 2019 Lab Results Component Value Date TRIG 147 2019 Chemistry Lab Results Component Value Date SODIUM 135 01/09/2024 POTASSIUM 3.5 01/09/2024 CHLORIDE 97 01/09/2024 CO2 22 01/09/2024 ANIONGAP 16 (H) 01/09/2024 BUNSER 12 01/09/2024 CREATININE 1.03 01/09/2024 GLUCOSE 115 01/09/2024 CALCIUM 8.7 01/09/2024 BILITOT 0.6 01/09/2024 ALBUMIN 4.6 01/09/2024 GFRNAA >90 01/09/2024 ALKPHOS 108 01/09/2024 AST 23 01/09/2024 ALT 16 01/09/2024 MAGNESIUM 1.8 01/09/2024 Shan Chou MD There may be syntax/grammatical errors in this note due to the use of voice recognition software. documented in this encounter Miscellaneous Notes * Addendum Note - J Luis Foster - 03/27/2024 11:00 AM CDTAddended by: J LUIS FOSTER on: 03/27/2024 11:23 AM Modules accepted: Orders documented in this encounter Plan of Treatment Scheduled Referrals Name Type Priority Associated Diagnoses Order Schedule Ambulatory referral to Gastroenterology Outpatient Referral Routine Gastroesophageal reflux disease with esophagitis without hemorrhage Persistent cough for 3 weeks or longer Expected: 03/27/2024 (Approximate), Expires: 03/27/2025 Ambulatory referral to Psychiatry Outpatient Referral Routine Bipolar disorder, in partial remission, most recent episode mixed (CMS/HCC) (HCC) Expected: 04/10/2024 (Approximate), Expires: 03/27/2025 documented as of this encounter Results * XR Chest Pa [...] AM T: ??03/29/2024 12:57 AM Report ID: [id number] Reading Location: ??[id number] Procedure Note Dwain Mclaughlin MD - 03/29/2024 [...] 12:57 AM - Electronically signed by Dwain CLIFTON: ELODIA Report ID: [id number] Reading Location: [place] [address] Shan Chou MD IM XR PROCEDURES F inal Result * (ABNORMAL) Comprehensive metabolic panel (03/27/2024 11:28 AM CDT) Sodium 135 135 - 145 mmol/L Potassium, pl 4.2 3.3 - 4.9 mmol/L [facility] ([facility] Chloride 100 97 - 110 [...] MD LAB BLOOD ORDERABLE S Final Result [facility] [address] [facility] Department of Laboratories [place], [place] [id number] * CBC with auto differential (03/27/2024 11:28 AM CDT) WBC 8.3 3.8 - 9.9 K/cumm Hgb 14.6 13.0 - 17.5 g/dL [facility] Hct 42.7 38.9 - 50.3 % [facility] Plt 187 150 - 400 K/cumm [facility] ([facility] MPV 12.0 9.1 - 12.3 fL [facility] ([place] RBC 4.84 4.30 - 5.80 M/cumm [facility] ([facility] MCV 88.2 81.3 - 96.4 fL [facility] ([place] MCH 30.2 27.1 - 33.3 pg [facility] ([facility] MCHC 34.2 32.3 - 35.7 g/dL [facility] RDW CV 12.4 11.1 - 14.9 % [facility] RDW SD 40.0 35.7 - 48.1 fL [facility] NRBC abs 0.00 0.00 - 0.01 K/cumm [facility] ([place] Blood 03/27/2024 11:2 8 AM CDT 03/27/2024 11:58 AM CDT us Shan Chou MD LAB BLOOD ORDERABLE S Final Result [facility] ([facility] [address] [facility] Department of Laboratories [place], [place] [id number] documented in this encounter Visit Diagnoses Diagnosis Routine adult health maintenance- Primary Bipolar disorder, in partial remission, most recent episode mixed (CMS/HCC) (HCC) Drug abuse (CMS/HCC) ([facility]) Other, mixed, or unspecified nondependent drug abuse, unspecified Alcohol abuse Nondependent alcohol abuse, unspecified drinking behavior Gastroesophageal reflux disease with esophagitis without hemorrhage Persistent cough for 3 weeks or longer Persistent cough for 3 weeks or longer documented in this encounter Discontinued Medications Medication Sig Discontinue Reason Start Date End Da te methylPREDNISolone (MEDROL DOSEPACK) 4 mg Dosepack follow package directions Therapy completed 08/31/2021 03/23/2024 cyclobenzaprine (FLEXERIL) 10 mg tablet Take 1 tablet (10 mg total) by mouth nightly Therapy completed 08/31/2021 03/23/2024 ondansetron (ZOFRAN) 4 mg tablet Take 1 tablet (4 mg total) by mouth every 6 (six) hours as needed for nausea or vomiting Therapy completed 04/13/2021 03/23/2024 buPROPion XL (WELLBUTRIN XL) 150 mg 24 hr tablet Alternate therapy 01/17/2024 03/27/2024 omeprazole (PriLOSEC) 40 mg capsule Alternate therapy 01/17/2024 03/27/2024 pramipexole (MIRAPEX) 0.5 mg tablet Patient Reported 02/06/2024 03/27/2024 buPROPion XL (WELLBUTRIN XL) 300 mg 24 hr tablet Reorder 03/07/2024 03/27/2024 lamoTRIgine (LaMICtal) 200 mg tablet Reorder 02/19/2024 03/27/2024 naltrexone (DEPADE) 50 mg tablet Take 1 tablet (50 mg total) by mouth daily Reorder 2024 03/27/2024 hydrOXYzine (VISTARIL) 50 mg capsule 1 capsule (50 mg total) Reorder 12/30/2023 03/27/2024 documented as of this encounter Historical Medications * This list may reflect changes made after this encounter. propranoloL (INDERAL) 20 mg tablet 02/19/2024 albuterol HFA (PROVENTIL HFA,VENTOLIN HFA,PROAIR HFA) 90 mcg/actuation inhaler 01/17/2024 naltrexone (DEPADE) 50 mg tablet Take 1 tablet (50 mg total) by mouth daily 2024 03/27/2024 traZODone (DESYREL) 150 mg tablet 02/19/2024 04/21/2024 pramipexole (MIRAPEX) 0.5 mg tablet 02/06/2024 03/27/2024 omeprazole (PriLOSEC) 40 mg capsule 01/17/2024 03/27/2024 mirtazapine (REMERON) 15 mg tablet 02/21/2024 04/21/2024 lamoTRIgine (LaMICtal) 200 mg tablet 02/19/2024 03/27/2024 Vraylar 1.5 mg capsule capsule 02/21/2024 buPROPion XL (WELLBUTRIN XL) 300 mg 24 hr tablet 03/07/2024 03/27/2024 buPROPion XL (WELLBUTRIN XL) 150 mg 24 hr tablet 01/17/2024 03/27/2024 added in this encounter Care Teams Oracle Database Administrator Relationship Specialty Start Date End Date Shan Chou MD [address] [facility] [address] [place] [address] PCP - General Family Practice 03/27/24 documented as of this encounter
--- OUTSIDE RECORDS SUMMARY | 2024-06-10 14:57 | XMS_ITS | Encounter Summary ---
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 Gender Identity Not on file Sexual Orientation Not on file documented as of this encounter Plan of Treatment Not on file documented as of this encounter Procedures Procedure Name Priority Date/Time Associated Diagnosis Comments SURGICAL PATHOLOGY Routine 04/06/2024 10 :30 AM CDT documented in this encounter Results * Surgical pathology (04/06/2024 10:30 AM CDT) Gastric/Stomach biopsy 04/06/2024 10:30 AM CDT 04/07/2024 10:30 AM CDT Narrative 04/10/2024 4:04 PM RECEP EPIC results best viewed via link to PDF [facility] Department of Pathology [address] [place] [address] Note to Patients: This report may contain [...] explain the details. Final Report Patient Name: ??ANA LILIA JUAN Address: ??[address], ??[place], [place] [address] Gender: ??M : ??1990 (Age: 34) Service: ??Gastro Location: ??[facility] Hospital #: ??[id number] Patient Type: ??[facility] Accession # ?[id number] Taken: ??04/06/2024 Received: ??04/07/2024 Accessioned: ??04/07/2024 Reported: [...] is submitted in two formalin containers labeled ANA LILIA YESSICA . A. ??The first container is [...] determined by the Surgical Pathology Department at [facility] as part of an ongoing software quality assurance engineer program and in compliance with federally [...] characteristics determined by the Surgical Pathology Department [facility]. ??It has not been cleared or approved by the U. S. Food and Drug Administration. Note for decalcified specimens: This assay has not been validated on decalcified tissues. Results should be interpreted with caution given the possibility of false negativity on decalcified specimens Siri Alves MD LAB PATHOLOGY ORDERABLES F inal Result documented in this encounter Visit Diagnoses Not on filedocumented in this encounter Care Teams Plating Technician Relationship Specialty Start Date End Date Shan Chou MD [address] [address] PCP - General Family Practice 03/27/24 documented as of this encounter
--- OUTSIDE RECORDS SUMMARY | 2024-06-10 14:57 | XMS_ITS | Encounter Summary ---
Author Organization [facility] Care Team Providers Care Hedge Fund Principal Name Role Phone Jimmy Mccormack Primary Care Provider U [email or web address] Encounter Details Date Type Department Care Team (Latest Contact Info) Description 05/05/2021 Travel Social History Tobacco Use Types Packs/Day [...] COVID-19? 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
--- OUTSIDE RECORDS SUMMARY | 2024-06-10 14:57 | XMS_ITS | Encounter Summary ---
Author Organization [facility] Address [address] [place] [address] Care Team Providers Care Cardiac Care Nurse Name Role Phone Shan Chou MD Primary Care Provi [facility] Reason for Referral * Procedure (Routine) - Closed Specialty Diagnoses / Procedures Referred By Contact Referred To Contact Gastroenterology Diagnoses Gastroesophageal reflux disease with esophagitis without hemorrhage Shan Chou MD [address] [place] [address] Phone: tel: fax: [facility] Gastroenterology at [address] [place] [address] Phone: tel: fax: Referral ID Status Reason Start Date Expiration Date V isits Requested Visits Authorized [id number] Closed Specialty Services Required 03/29/2024 04/28/2025 2 2 Scheduling Instructions EGD Question Answer Please select the performing region: [facility] [[id number]] Please select the performing department: [facility] [[id number]] # of visits: 2 Comments Patient needs an EGD Reason for Visit * Reason Onset Date Comments Medical Question/Miscellaneous 03/29/2024 Encounter Details Date Type Department Care Team ([facility] st Contact Info) Description 03/29/2024 Telephone [facility] Primary Care at [address] [place] [address] Shan Chou MD [address] [facility] [address] [place] [address] Medical Question/Miscellaneou s Social History Tobacco Use Types Packs/Day Years [...] on file 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 Patient states thatDr. Chou said he was sending him for an EGD. They can schedule an EGD much sooner, but the Referral needs that added to it. Please Advise, MARYUL. Does message need to be routed? Yes-Action Needed documented in this encounter Plan of Treatment Scheduled Referrals Name Type Priority Associated Diagnoses Order Schedule Ambulatory referral to Gastroenterology Outpatient Referral Routine Gastroesophageal reflux disease with esophagitis without hemorrhage Expected: 03/29/2024 (Approximate), Expires: 03/29/2025 documented as of this encounter Visit Diagnoses Diagnosis Gastroesophageal reflux disease with esophagitis without hemorrhage- Primary documented in this encounter Care Teams Cardiac Care Nurse Relationship Specialty Start Date End Date Shan Chou MD [address] [facility] [address] [place] [address] PCP - General Family Practice 03/27/24 documented as of this encounter
--- OUTSIDE RECORDS SUMMARY | 2024-06-10 14:57 | XMS_ITS | Encounter Summary ---
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 He stated he's been dehydrated lately. documented in this encounter Plan of Treatment Not on file documented as of this encounter Procedures Procedure Name Priority Date/Time Associated Diagnosis Comments EGFR Routine 03/27/2024 11:28 AM CDT Alcohol abuse DIFFERENTIAL AUTO Routine 03/27/2024 11: 28 AM CDT Persistent cough for 3 weeks or longer CBC WITH AUTO DIFFERENTIAL Routine 03/27/2024 11:28 AM CDT Persistent cough for 3 weeks or longer COMPREHENSIVE METABOLIC PANEL Routine 03/27/2024 11:28 AM CDT Alcohol abuse documented in this encounter Results * eGFR (03/27/2024 11:28 AM CDT) eGFR [...] of Race in Diagnosing Kidney Disease, JASN 202). The CKD-EPI equation should not be used for patients with unstable renal function and has not been validated in children and those over 70. Current interpretive data was last reviewed 2021. Blood 03/27/2024 11:2 8 AM CDT 03/27/2024 11:58 AM CDT us Shan Chou MD LAB BLOOD ORDERABLE S Final Result [facility] ([place] 1 [facility] Department [place] [address] * (ABNORMAL) Differential, auto (03/27/2024 11:28 AM CDT) Neutrophil abs 4.5 1.5 - 6.5 K/cumm Imm gran abs 0.0 0.0 - 0.1 K/cumm [facility] ([place]) Lymphocyte abs 2.2 0.8 - 3.3 K/cumm [facility] ([place]) Monocyte abs 0.9(H) 0.2 - 0.8 K/cumm [facility] ([place]) Eosinophil abs 0.6(H) 0.0 - 0.5 K/cumm [facility] ([place]) Basophil abs 0.1 0.0 - 0.1 K/cumm [facility] ([place]) Neutrophil pct 54.3 % [facility] ([place]) Comment: Interpretive Data Percent cell count reference ranges are not reported, since discordance with absolute values may lead to misinterpretation of CBC data. Current Interpretive Data was last revised on 2017. Imm gran pct 0.2 % [facility] ([place]) Comment: Interpretive Data Percent cell count reference ranges are not reported, since discordance with absolute values may lead to misinterpretation of CBC data. Current Interpretive Data was last revised on 2017. Lymphocyte pct 26.4 % [facility] ([place]) Comment: Interpretive Data Percent cell count reference ranges are not reported, since discordance with absolute values may lead to misinterpretation of CBC data. Current Interpretive Data was last revised on 2017. Monocyte pct 10.9 % [facility] ([place]) Comment: Interpretive Data Percent cell count reference ranges are not reported, since discordance with absolute values may lead to misinterpretation of CBC data. Current Interpretive Data was last revised on 2017. Eosinophil pct 7.0 % [facility] ([place] Comment: Interpretive Data Percent cell count reference [...] MD LAB BLOOD ORDERABLE S Final Result [facility] ([place]) 1 [facility] [place] [address] * CBC with auto differential (03/27/2024 11:28 [...] LAB BLOOD ORDERABLE S Final Result [facility] ([place]) 1 [facility] Department [place] [address] * (ABNORMAL) Comprehensive metabolic panel (03/27/2024 11:28 [...] BLOOD ORDERABLE S Final Result [facility] ([place] 1 [facility] Department [place] [address] documented in this encounter Visit Diagnoses Diagnosis Alcohol abuse Nondependent alcohol abuse, unspecified drinking behavior Persistent cough for 3 weeks or longer documented in this encounter Care Teams Highway Worker Relationship Specialty Start Date End Date Shan Chou MD [address] [address] PCP - General Family Practice 03/27/24 documented as of this encounter
--- OUTSIDE RECORDS SUMMARY | 2024-06-10 14:57 | XMS_ITS | Encounter Summary ---
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 Gender Identity Not on file Sexual Orientation Not on file documented as of this encounter Ordered Prescriptions Prescription Sig Dispense Quantity Refills Last Filled Start Date End Date hydrOXYzine (VISTARIL) 50 mg capsuleIndications :anxiety Take 1 capsule (50 mg total) by mouth 3 (three) times a day as needed for itching 90 capsule 1 04/24/2024 5 documented in this encounter Plan of Treatment Not on file documented as of this encounter Visit Diagnoses Diagnosis Itching- Primary Unspecified pruritic disorder documented in this encounter Discontinued Medications Medication Sig Discontinue Reason Start Date End Da te hydrOXYzine (VISTARIL) 50 mg capsuleIndications:anxie ty Take 1 capsule (50 mg total) by mouth 3 (three) times a day as needed for itching Reorder 03/27/2024 04/24/2024 documented as of this encounter Care Teams Veterinary Medicine Doctor Relationship Specialty Start Date End Date Shan Chou MD [address] [facility] [address] [place] [address] PCP - General Family Practice 03/27/24 documented as of this encounter
--- OUTSIDE RECORDS SUMMARY | 2024-06-10 14:57 | XMS_ITS | Encounter Summary ---
Author Organization [facility] Healthcare Address [address] [place] [place] [id number] Care Team Providers Care Glue Wheel Operator Name Role Phone No, Physician Primary Care Provider Reason for Visit * Reason Comments Palpitations Encounter Details Date Type Department Care Team (Late st Contact Info) Description 01/09/2024 12:15 PM CDT - 01/09/2024 2:39 PM CDT Emergency [facility] Emergency Department [address] [place] [address] Josh Lopez MD [address] [place] [address] Palpitations (Primary Dx) Discharge Disposition: Discharge to home or self [...] on file 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 Gender Identity Not on file Sexual Orientation Not on file documented as of this encounter Last Filed Vital Signs Vital Sign Reading Time Taken Comments Blood Pressure 141/81 01/09/2024 1:00 PM CDT Pulse 100 01/09/2024 1:00 PM CDT Temperature 36.3 ??C (97.3 ??F) 01/09/2024 12:25 PM C DT Respiratory Rate 16 01/09/2024 1:00 PM CDT Oxygen Saturation 100% 01/09/2024 1:00 PM CDT Inhaled Oxygen Concentration - - Weight 90.7 kg (200 lb) 01/09/2024 12:25 PM CDT Height 188 cm (6' 2 ) 01/09/2024 12:25 PM CDT Body Mass Index 25.68 01/09/2024 12:25 PM CDT documented in this encounter Discharge Instructions * Discharge Instructions* Josh Lopez MD - 01/09/2024 1:44 PM CDT Follow-up with Bharath Mckeon. Avoid drugs and alcohol. Follow-up with your primary care doctor. * Attachments The following attachments cannot be sent through Care Everywhere. * Palpitations (Indonesian) documented in this encounter Medications at Time of Discharge cyclobenzaprine (FLEXERIL) 10 mg tablet Take 1 tablet (10 mg total) by mouth nightly 10 tablet 08/31/2021 4 hydrOXYzine (VISTARIL) 50 mg capsule 1 capsule (50 mg total) 12/30/2023 4 ibuprofen (ADVIL,MOTRIN) 600 mg tablet Take [...] documented in this encounter ED Notes * Josh Lopez MD - 01/09/2024 12:43 PM CDT HPI Chief Complaint Patient presents with Palpitations Patient started feeling dizzy today with shortness of breath and palpitations. He has nausea and vomiting. Patient did use cocaine last night and today. Also had alcohol. Last drink was 2 hours ago. No chest pain. Patient History: There are no problems to display for this patient. Past Medical History: Diagnosis Date Asthma No past surgical history on file. No family history on file. Social History Tobacco Use Smoking status: Smoker, Current Status Unknown Current packs/day: 1.00 Types: Cigarettes Smokeless tobacco: Not on file Substance and Sexual Activity Alcohol use: Yes Comment: 3 times a week Drug use: Not on file Sexual activity: Not on file Social History Social History Narrative Not on file Review of Systems Review of Systems Constitutional: Negative for chills and fever. HENT: Negative for congestion, rhinorrhea and sore throat. Eyes: Negative for pain. Respiratory: Positive for shortness of breath. Negative for cough. Cardiovascular: Negative for chest pain and leg swelling. Gastrointestinal: Positive for nausea and vomiting. Negative for abdominal pain and diarrhea. Genitourinary: Negative for difficulty urinating. Musculoskeletal: Negative for myalgias. Skin: Negative for rash. Neurological: Positive for dizziness. Negative for headaches. Psychiatric/Behavioral: Negative for behavioral problems. Physical Exam ED Triage Vitals [01/09/24 1225] Temp Pulse Resp BP SpO2 36.3 ??C (97.3 ??F) 91 18 158/85 100 % Temp src Heart Rate Source Patient Position BP Location FiO2 (%) Temporal -- -- -- -- Height Height Method Weight Weight Method 1.88 m (6' 2 ) Stated 90.7 kg (200 lb) Stated Physical Exam Constitutional: Appearance: He is well-developed. HENT: Head: Normocephalic and atraumatic. Nose: Nose normal. Eyes: Pupils: Pupils are equal, round, and reactive to light. Cardiovascular: Rate and Rhythm: Regular rhythm. Tachycardia present. Heart sounds: Normal heart sounds. Pulmonary: Effort: Pulmonary effort is normal. Breath sounds: Normal breath sounds. Abdominal: General: Bowel sounds are normal. Palpations: Abdomen is soft. Musculoskeletal: General: Normal range of motion. Cervical back: Normal range of motion. Skin: General: Skin is warm and dry. Neurological: Mental Status: He is alert and oriented to person, place, and time. Labs Reviewed CBC WITH AUTO DIFFERENTIAL - Abnormal Result Value WBC 15.3 (*) Hgb 15.1 Hct 42.8 Plt 229 MPV 11.5 RBC 4.97 MCV 86.1 MCH 30.4 MCHC 35.3 RDW CV 12.6 RDW SD 39.4 NRBC abs 0.00 COMPREHENSIVE METABOLIC PANEL - Abnormal Sodium 135 Potassium, pl 3.5 Chloride 97 CO2 22 Anion gap 16 (*) BUN 12 Creatinine 1.03 Glucose 115 Calcium 8.7 Bilirubin, total 0.6 Protein, pl 6.8 Albumin 4.6 Alk phos 108 ALT 16 AST 23 ETHANOL - Abnormal Ethanol 47 (*) DRUGS OF ABUSE SCREEN, URINE WITHOUT CONFIRMATION - Abnormal Amphetamine, ur Not Detected Barbiturates, ur Not Detected Benzodiazepines, ur Not Detected Cannabinoids, ur Not Detected Cocaine, ur Screen Positive, presumptive (*) Fentanyl, Ur Not Detected Methadone, ur Not Detected Opiates, ur Not Detected Oxycodone, ur Not Detected Phencyclidine, ur Not Detected Urine Creatinine 21 Narrative: Drug of Abuse screening is performed by immunoassay for medical purposes only. This is not to be used for Pain Management purposes. DIFFERENTIAL AUTO - Abnormal Neutrophil abs 11.8 (*) Imm gran abs 0.1 Lymphocyte abs 2.0 Monocyte abs 1.3 (*) Eosinophil abs 0.0 Basophil abs 0.1 Neutrophil pct 77.1 Imm gran pct 0.5 Lymphocyte pct 13.3 Monocyte pct 8.3 Eosinophil pct 0.3 Basophil pct 0.5 URINALYSIS AND REFLEX TO MICROSCOPIC AND CULTURE Color, ur Straw Clarity, ur Clear Specific gravity, ur 1.003 pH, urine 6.5 Protein, ur ql Negative Glucose, ur ql Negative Ketones, ur Negative Bilirubin, ur Negative Blood, ur Negative Urobilinogen, ur <2.0 Nitrite, ur Negative Leukocyte esterase, ur Negative UA reflex comment Value: Reflex conditions for microscopic UA and culture not met. TROPONIN T HIGH-SENSITIVITY SERIES (BASELINE, 2HR, 4HR, 6HR) Trop T hs 8 MAGNESIUM Magnesium 1.8 EGFR eGFR >90 XR Chest 1 Vw Portable (if patient condition/safety warrant portable) Final Result MDM Medical Decision Making Patient having palpitations, shortness of breath after using cocaine and alcohol. Amount and/or Complexity of Data Reviewed Labs: ordered. Details: WBC 15.3. Urine drug screen: positive cocaine. Ethanol 47 Radiology: ordered. ECG/medicine tests: ordered and independent interpretation performed. Details: EKG: Sinus rhythm, rate 96, possible old inferior PA Discussion of management or test interpretation with external provider(s): Differential diagnosis: Cardiac, alcohol, drug related. Cardiac test negative. Follow up with his detox and primary care doctor. Risk OTC drugs. Prescription drug management. Final diagnoses: Palpitations Josh Lopez MD 01/09/24 1347 * Savannah Nava RN - 01/09/2024 12:22 PM CDT Patient to ED with complaint of using cocaine and etoh last night and this morning and having a feeling of a rapid heart rate and feeling lightheaded. States he got out of rehab a week ago for cocaine and meth. States nausea, no vomiting. documented in this encounter Miscellaneous Notes * ED Procedure Note - Josh Lopez MD - 01/09/2024 12:45 PM CDTAssociated Order(s): ECG 12 lead Procedure ECG 12 lead Date/Time: 01/09/2024 12:45 PM Performed by: Josh Lopez MD Authorized by: Josh Lopez MD Rate: ECG rate: 96 ECG rate assessment: normal Rhythm: Rhythm: sinus rhythm Interpretation: Interpretation: abnormal Comments: Possible old inferior PA Josh Lopez MD 01/09/24 1246 documented in this encounter Plan of Treatment Pending Results Name Type Priority Associated Diagnoses Date /Time ECG 12 lead ECG STAT 01/09/2024 12 :46 PM CDT documented as of this encounter Procedures Procedure Name Priority Date/Time Associated Diagnosis Comments ECG 12-LEAD STAT 01/09/2024 12:46 PM CDT URINALYSIS AND REFLEX TO MICROSCOPIC AND CULTURE STAT 01/09/2024 12:37 PM CDT DRUGS OF ABUSE SCREEN, URINE WITHOUT CONFIRMATION STAT 01/09/2024 12:37 PM CDT XR CHEST 1 VIEW ED 01/09/2024 12:33 PM CDT TROPONIN T HIGH-SENSITIVITY SERIES (BASELINE, 2HR, 4HR, 6HR) STAT 01/09/2024 12:27 PM CDT EGFR STAT 01/09/2024 12:27 PM CDT DIFFERENTIAL AUTO STAT 01/09/2024 12: 27 PM CDT CBC WITH AUTO DIFFERENTIAL STAT 01/09/2024 12:27 PM CDT MAGNESIUM Routine 01/09/2024 12:27 PM CDT ETHANOL STAT 01/09/2024 12:27 PM CDT COMPREHENSIVE METABOLIC PANEL STAT 01/09/2024 12:27 PM CDT ECG 12-LEAD Routine 01/09/2024 12:19 PM CDT documented in this encounter Results * (ABNORMAL) Drugs of Abuse Screen, Urine without Confirmation (01/09/2024 12:37 PM CDT) [facility] Amphetamine, ur Not Detected CutOff 500ng/mL Comment: Interpretive Data - Amphetamines: ??Samples containing greater than 500 ng/mL d-methamphetamine ??or other cross-reacting amphetamine compounds are reported as positive. ??Amphetamine immunoassays are subject to significant false positive rates due to cross-reactivity of non-amphetamine drugs. Confirmatory testing required for definitive results. Current Interpretive Data was last reviewed 2023. Barbiturates, ur Not Detected CutOff 200ng/mL [facility] Comment: Interpretive Data - Barbiturates: ??Samples containing greater than 200 ng/mL secobarbital or other cross-reacting barbiturate compounds are reported as positive. ??False positive and false negative results are possible. Confirmatory testing required for definitive results. Current Interpretive Data was last reviewed 2023. Benzodiazepines, ur Not Detected CutOff 100ng/mL [facility] Comment: Interpretive Data - Benzodiazepines: ??Samples containing greater than 100 ng/mL nordiazepam or other cross-reacting compounds are reported as positive. False positive and false negative results are possible. Confirmatory testing required for definitive results. Current Interpretive Data was last reviewed 2023. Cannabinoids, ur Not Detected CutOff 50 ng/mL [facility] Comment: Interpretive Data - Cannabinoids: ??Samples containing greater than 50 ng/mL delta-9 THC -COOH or other cross-reacting compounds are reported as positive. ??False positive and false negative results are possible. ??Confirmatory testing required for definitive results. Current Interpretive Data was last reviewed 2023. Cocaine, ur Screen Positive, presumptive (A) CutOff 150ng/mL [facility] ([place] Comment: Interpretive Data - Cocaine: ??Samples containing greater than 150 ng/mL benzoylecgonine or other cross-reacting compounds are reported as positive. False positive and false negative results are possible. Confirmatory testing required for definitive results. Current Interpretive Data was last reviewed 2023. Fentanyl, Ur Not Detected CutOff 5 ng/mL [facility] Comment: Interpretive Data - Fentanyl: ??Samples containing greater than 5 ng/mL norfentanyl, fentanyl, or other cross-reacting fentanyl compounds are reported as positive. False positive and false negative results are possible. Confirmatory testing required for definitive results. Current Interpretive Data was last reviewed 2023. Methadone, ur Not Detected CutOff 300ng/mL [facility] Comment: Interpretive Data - Methadone: ??Samples containing greater than 300 ng/mL d,l-methadone or other cross-reacting compounds are reported as positive. ??False positive and false negative results are possible. Confirmatory testing required for definitive results. Current Interpretive Data was last reviewed 2023. Opiates, ur Not Detected CutOff 300ng/mL [facility] ([place]) Comment: Interpretive Data - Opiates: ??Samples containing greater than 300 ng/mL morphine or other cross-reacting compounds are reported as positive. ??False positive and false negative results are possible. Confirmatory testing required for definitive results. Current Interpretive Data was last reviewed 2023. Oxycodone, ur Not Detected CutOff 100ng/mL [facility] Comment: Interpretive Data - Oxycodone: ??Samples containing greater than 100 ng/mL oxycodone or other cross-reacting compounds are reported as ??positive. ??False positive and false negative results are possible. Confirmatory testing required for definitive results. Current Interpretive Data was last reviewed 2023. Phencyclidine, ur Not Detected CutOff 25 ng/mL [facility] Comment: Interpretive Data - Phencyclidine: ??Samples containing greater than 25 ng/mL phencyclidine or other cross-reacting compounds are reported as positive. ??False positive and false negative results are possible. Confirmatory testing required for definitive results. Current Interpretive Data was last reviewed 2023. Urine Creatinine 21 mg/dL [facility] ([place]) Comment: Interpretive Data Urine Creatinine: < 10 mg/dL is extremely dilute = or > 10 but < 20 mg/dL is dilute = or > 20 mg/dL is normal Current Interpretive Data was last revised on 2017. Urine 01/09/2024 12:3 7 PM CDT 01/09/2024 12:42 PM CDT Narrative [facility] - 01/09/2024 1:10 PM CDT Drug of Abuse screening is performed by immunoassay for medical purposes only. ??This is not to be used for Pain Management purposes. Josh Lopez MD LAB URINE ORDERABLES Final R esult [facility] 1 [facility] [place] [address] * Urinalysis reflex to microscopic and culture Urine (01/09/2024 12:37 PM CDT) Color, ur Straw Yellow Clarity, ur Clear Clear [facility] ([place]) Specific gravity, ur 1.003 1.003 - 1.030 [facility] pH, urine 6.5 [facility] Comment: Interpretive Data ? Urine pH is affected by diet, medications, systemic acid-base disturbances, and renal tubular function. ??pH may affect urinary stone formation. ??For example, urine pH below 6.0 may help reduce the tendency for calcium phosphate stones and pH greater than 6.0 may reduce the tendency for uric acid stone formation. Source: [facility] [employer] Current Interpretive Data was last revised on 2017 Protein, ur ql Negative Negative [facility] Glucose, ur ql Negative Negative [facility] Ketones, ur Negative Negative [facility]) Bilirubin, ur Negative Negative [facility] Blood, ur Negative Negative [facility] Urobilinogen, ur <2.0 <2.0 mg/dL [facility]) Nitrite, ur Negative Negative [facility]) Leukocyte esterase, ur Negative Negative [facility]) UA reflex comment Reflex conditions for microscopic UA and culture not met. [facility] Urine 01/09/2024 12:3 7 PM CDT 01/09/2024 12:42 PM CDT Josh Lopez MD LAB MICROBIOLOGY - GENERAL O RDERABLES Final Result [facility] ([place] 1 [facility] [place] [address] * XR Chest 1 Vw Portable (if patient condition/safety warrant portable) (01/09/2024 12:33 PM CDT) Anatomical Region Laterality Modality Body, Chest N/A Computed Radiogr aphy 01/09/2024 12:5 2 PM CDT Narrative 01/09/2024 12:55 PM CDT EXAM DESCRIPTION: XR CHEST 1 VIEW REASON FOR STUDY: chest pain ?? Patient to ED with complaint of using cocaine and etoh last night and this morning and having a feeling of a rapid heart rate and feeling lightheaded. States he got out of rehab a week ago for cocaine and meth. States nausea, no vomiting. ? TECHNIQUE: Single frontal ??radiographic view(s) of the chest. COMPARISON: Chest radiograph dated 10/04/2023 and 08/31/2021. ??Chest CT dated 08/18/2022. FINDINGS: Lung volumes are small with bronchovascular crowding. ??No definite focal pneumonic consolidation, pleural effusion or pneumothorax. ??Cardiomediastinal silhouette is similar in size. ??Osseous structures without gross acute interval change. IMPRESSION: No definite focal pneumonic consolidation. THIS IS AN ELECTRONICALLY VERIFIED FINAL REPORT 01/09/2024 12:55 PM - Electronically signed by ??Bobo Knowles D.O. Bobo Knowles D.O. AP: AP D: ??01/09/2024 12:55 PM T: ??01/09/2024 12:55 PM Report ID: [id number] Reading Location: ??[id number] Procedure Note Bobo Knowles, DO - 01/09/2024 EXAM DESCRIPTION: XR CHEST 1 VIEW REASON FOR STUDY: chest pain Patient to ED with complaint of using cocaine and etoh last night and this morning and having a feeling of a rapid heart rate and feelinglightheaded. States he got out of rehab a week ago for cocaine and meth. States nausea,no vomiting. TECHNIQUE: Single frontal radiographic view(s) of the chest. COMPARISON: Chest radiograph dated 10/04/2023 and 08/31/2021. Chest CTdated 08/18/2022. FINDINGS: Lung volumes are small with bronchovascular crowding. No definite focal pneumonic consolidation, pleural effusion or pneumothorax.Cardiomediastinal silhouette is similar in size. Osseous structures without gross acute interval change. IMPRESSION: No definite focal pneumonic consolidation. THIS IS AN ELECTRONICALLY VERIFIED FINAL REPORT 01/09/2024 12:55 PM - Electronically signed by Bobo Knowles D.O. AP: AP Report ID: [id number] Reading Location: [place] [address] us Josh Lopez MD IMG XR PROCEDURES Final Resu lt * eGFR (01/09/2024 12:27 PM CDT) eGFR >90 >=60 mL/min/1. 73 m2 Comment: [...] interpretive data was last reviewed 2021. Blood 01/09/2024 12:2 7 PM CDT 01/09/2024 12:31 PM CDT us Josh Lopez MD LAB BLOOD ORDERABLES Final R esult [facility] 1 [facility] [place] [address] * (ABNORMAL) Differential, auto (01/09/2024 12:27 PM CDT) Neutrophil abs 11.8(H) 1.5 - 6.5 K/cumm Imm gran abs 0.1 0.0 - 0.1 K/cumm [facility] Lymphocyte abs 2.0 0.8 - 3.3 K/cumm [facility]) Monocyte abs 1.3(H) 0.2 - 0.8 K/cumm [facility] Eosinophil abs 0.0 0.0 - 0.5 K/cumm [facility] Basophil abs 0.1 0.0 - 0.1 K/cumm [facility] Neutrophil pct 77.1 % [facility] Comment: Interpretive Data Percent cell count reference ranges are not reported, since discordance with absolute values may lead to misinterpretation of CBC data. Current Interpretive Data was last revised on 2017. Imm gran pct 0.5 % [facility] Comment: Interpretive Data Percent cell count reference ranges are not reported, since discordance with absolute values may lead to misinterpretation of CBC data. Current Interpretive Data was last revised on 2017. Lymphocyte pct 13.3 % [facility] Comment: Interpretive Data Percent cell count reference ranges are not reported, since discordance with absolute values may lead to misinterpretation of CBC data. Current Interpretive Data was last revised on 2017. Monocyte pct 8.3 % [facility] Comment: Interpretive Data [...] was last revised on 2017. Basophil pct 0.5 % [facility] Comment: Interpretive Data Percent cell count reference ranges are not reported, since discordance with absolute values may lead to misinterpretation of CBC data. Current Interpretive Data was last revised on 2017. Blood 01/09/2024 12:2 7 PM CDT 01/09/2024 12:29 PM CDT us Josh Lopez MD LAB BLOOD ORDERABLES Final R esult [facility] ([place] 1 [facility] [place] [address] * Magnesium (01/09/2024 12:27 PM CDT) Magnesium 1.8 1.4 - 2.5 mg/dL Blood 01/09/2024 12:2 7 PM CDT 01/09/2024 12:31 PM CDT Josh Lopez MD LAB BLOOD ORDERABLES Final R esult Performing Organization Address [facility] Co de Phone Number [facility] ([place]) [address] [place] [address] [place] [address] * (ABNORMAL) Ethanol (01/09/2024 12:27 PM CDT) Pathologist [facility] Ethanol 47(H) <=10 mg/dL Comment: Interpretive Data Legal limit of intoxication > or = 80 mg/dL Levels > or = 400 mg/dL are potentially TOXIC. Current interpretive data was last revised on 2018. Blood 01/09/2024 12:2 7 PM CDT 01/09/2024 12:31 PM CDT Josh Lopez MD LAB BLOOD ORDERABLES Final R esult Performing Organization Address [facility] Co de Phone Number [facility] ([place]) [address] [place] [address] [employer] [place] [address] * Troponin T high-sensitivity series (baseline, 2hr, 4hr, 6hr) (01/09/2024 12:27 PM CDT) Trop T hs 8 <=22 ng/L Comment: Interpretive Data For further hscTnT resources including the diagnostic algorithm and an aid in interpretation, copy and paste this link: https://nrl.testcatalog.org/show/hsTrop Current Interpretive Data last revised 2020. Blood 01/09/2024 12:2 7 PM CDT 01/09/2024 12:29 PM CDT Josh Lopez MD LAB BLOOD ORDERABLES Final R esult [facility] 1 [facility] [place] [address] * (ABNORMAL) Comprehensive metabolic panel (01/09/2024 12:27 PM CDT) Sodium 135 135 - 145 mmol/L Potassium, pl 3.5 3.3 - 4.9 mmol/L [facility] Chloride 97 97 - 110 mmol/L [facility] CO2 22 22 - 32 mmol/L [facility] Anion gap 16(H) 2 - 15 mmol/L [facility] BUN 12 6 - 25 mg/dL [facility] Creatinine 1.03 0.80 - 1.30 mg/dL [facility] Glucose 115 70 - 199 mg/dL [facility] [...] interpretive data was last revised 2022. Calcium 8.7 8.5 - 10.3 mg/dL [facility] Bilirubin, total 0.6 0.1 - 1.2 mg/dL [facility]) Protein, pl 6.8 6.5 - 8.5 g/dL [facility]) Albumin 4.6 3.5 - 5.0 g/dL [facility] Alk phos 108 40 - 130 Units/L [facility] ALT 16 7 - 55 Units/L [facility] AST 23 10 - 50 Units/L [facility] Blood 01/09/2024 12:2 7 PM CDT 01/09/2024 12:29 PM CDT Josh Lopez MD LAB BLOOD ORDERABLES Final R esult [facility] 1 [facility] [employer] [place] [address] * (ABNORMAL) CBC with auto differential (01/09/2024 12:27 PM CDT) WBC 15.3(H) 3.8 - 9.9 K/cumm Hgb 15.1 13.0 - 17.5 g/dL [facility] Hct 42.8 38.9 - 50.3 % [facility] Plt 229 150 - 400 K/cumm [facility] MPV 11.5 9.1 - 12.3 fL [facility] RBC 4.97 4.30 - 5.80 M/cumm [facility]) MCV 86.1 81.3 - 96.4 fL [facility] MCH 30.4 27.1 - 33.3 pg [facility]) MCHC 35.3 32.3 - 35.7 g/dL [facility] RDW CV 12.6 11.1 - 14.9 % [facility] RDW SD 39.4 35.7 - 48.1 fL [facility]) NRBC abs 0.00 0.00 - 0.01 K/cumm [facility] Blood (Blood, Venous) 01/09/2024 12:27 PM CDT 01/09/2024 12:29 PM CDT Josh Lopez MD LAB BLOOD ORDERABLES Final R esult [facility] ([place]) [address] [facility] [employer] [place] [address] * ECG 12 lead (01/09/2024 12:19 PM CDT) 01/09/2024 12:1 9 PM CDT Narrative [facility] - 01/10/2024 6:50 AM CDT Vent Rate: 96 bpm RR Interval: 620 msec AR Interval: 152 msec QRS Duration: 109 msec QT Interval: 350 msec QTC Interval: 404 msec P-R-T Lando: 59 - 74 - 55 degrees IMPRESSION: SINUS RHYTHM POSSIBLE INFERIOR MYOCARDIAL INFARCTION , PROBABLY OLD WITH POSTERIOR EXTENSION ??[30 ms Q WAVE IN II/aVFPROMINENT R WAVE IN V1/ BORDERLINE ECG NO CHANGE FROM PREVIOUS TRACING NOTED Electronically Signed By: Gage Blas MD us Josh Lopez MD ECG ORDERABLES Final Result [facility] documented in this encounter Visit Diagnoses Diagnosis Palpitations- Primary documented in this encounter Administered Medications Inactive Administered Medications - up to 3 most recent administrations Medication Order MAR Action Action Date Dose Rate Site ondansetron (ZOFRAN) injection 4 mg 4 mg, intravenous, Administer over 2 Minutes, Once, On 01/09/24 at 1227, For 1 dose Given 01/09/2024 12:36 PM CDT 4 mg sodium chloride 0.9% bolus 1,000 mL 1,000 mL, intravenous, Once, On 01/09/24 at 1227, For 1 dose New Bag 01/09/2024 12:36 PM CDT 1,000 mL documented in this encounter Active and Recently Administered Medications Times are shown in CDT. Scheduled Medication Order 01/07/2024 01/08/2024 01/09/2024 aspirin chewable tablet 324 mg 324 mg, oral, Once, On 01/09/24 at 1223, For 1 dose, Indications: Chest Pain 1236 (Not Given - Pr ovider: Savannah Nava RN - Reason: Other - Comment: per erp) ondansetron (ZOFRAN) injection 4 mg (COMPLETED) 4 mg, intravenous, Administer over 2 Minutes, Once, On 01/09/24 at 1227, For 1 dose 1236 (Given - Provid er: Savannah Nava RN) sodium chloride 0.9% bolus 1,000 mL (COMPLETED) 1,000 mL, intravenous, Once, On 01/09/24 at 1227, For 1 dose 1236 (New Bag - Prov ider: Savannah Nava, [id number])[id number] (Stopped - Provider: Massiel Hernandez RN) documented in this encounter Orders Medications Ordered That Tone ht Not Have Been Administered Count Last Ordered Date First Ordered Date aspirin chewable tablet 324 mg 1 01/09/2024 documented in this encounter Care Teams Glue Wheel Operator Relationship Specialty Start Date End Date No, Physician PCP - General 10/04/23 03/26/24 documented as of this encounter
--- OUTSIDE RECORDS SUMMARY | 2024-06-10 14:57 | XMS_ITS | Encounter Summary ---
Author Organization [facility] Healthcare Address [address] [place] [id number] Care Team Providers Care Staff Appraiser Name Role Phone Shan Chou MD Primary Care Provi [facility] Reason for Visit * Reason Comments Follow-up Encounter Details Date Type Department Care Team (Late st Contact Info) Description 04/27/2024 10:00 AM ICU RN Office Visit [facility] Primary Care at [address] [place] [address] Shan Chou MD [address] [place] [address] [address] [place] [address] Gastroesophageal reflux disease with esophagitis without hemorrhage [...] on file Legal Sex Male 2:39 AM ICU RN Gender Identity Not on file Sexual Orientation Not on file documented as of this encounter Last Filed Vital Signs Vital Sign Reading Time Taken Comments Blood Pressure 126/74 04/27/2024 10:04 AM ICU RN Pulse 76 04/27/2024 10:04 AM ICU RN Temperature 36.7 ??C (98 ??F) 04/27/2024 10:04 AM ICU RN Respiratory Rate - - Oxygen Saturation 98% 04/27/2024 10:04 AM ICU RN Inhaled Oxygen Concentration - - Weight 94.1 kg (207 lb 8 oz) 04/27/2024 10:04 AM ICU RN Height 188 cm (6' 2.02 ) 04/27/2024 10:04 AM ICU RN Body Mass Index 26.63 04/27/2024 10:04 AM ICU RN documented in this encounter Ordered Prescriptions Prescription Sig Dispense Quantity Refills Last Filled Start Date End Date Vraylar 1.5 mg capsule capsule Take 1 capsule (1.5 mg total) by mouth daily 90 capsule 04/27/2024 documented in this encounter Progress Notes * Shan Chou MD - 04/27/2024 10:00 AM CST Images from the original note were not included. Subjective/Objective Patient ID: Paul Cortez is a 34 y.o. male. Diagnoses and all orders for this visit: Gastroesophageal reflux disease with esophagitis without hemorrhage (Primary) He is going to continue the twice daily PPI. We will be following up with GI again down the road for upper endoscopy again in about a year. Tobacco abuse Congratulated him on quitting smoking and encouraged him to continue working on that. Persistent cough for 3 weeks or longer At this time he does not feel that he is having that degree of a cough that he wants to pursue daily maintenance therapy for asthma. The cough likely was caused by acid reflux and as such it should continue to rosa. Check up again in six months or sooner if needed. Other orders - Vraylar 1.5 mg capsule capsule; Take 1 capsule (1.5 mg total) by mouth daily Refilled Vraylar for him today. He has not yet gotten in with a psychiatrist. Return in about 6 months (around 10/25/2024) for Recheck. Chief Complaint Chief Complaint Patient presents with Follow-up HPI 34-year-old male here to follow up primarily on persistent cough and asthma. Last month when I saw him he was feeling pretty short of breath and coughing a lot so I sent him for chest x-ray and got lab. X-rays showed no acute pulmonary abnormality. The CBC was unremarkable. I had referred him to GI and he did end up seeing them and had an upper endoscopy done. With biopsies he was found to have inflammation with metaplasia and recommendation to repeat the EGD in one year. He is currently taking pantoprazole 40 mg twice a day. Cough has really improved since being treated with the PPI. He's also quit smoking. At this time hedoesn't feel he needs daily asthma treatment. Vitals look good today. Weight is up a few lb. Patient Active Problem List Diagnosis Date Noted Tobacco abuse 04/27/2024 Bipolar disorder, in partial remission, most recent episode mixed ([facility]) 03/27/2024 Drug abuse ([facility] ([facility]) 03/27/2024 Alcohol abuse 03/27/2024 Gastroesophageal reflux disease with esophagitis without hemorrhage 03/27/2024 Persistent cough for 3 weeks or longer 03/27/2024 Routine adult health maintenance 03/23/2024 Past Medical History: Diagnosis Date Asthma History reviewed. No pertinent surgical history. Current Outpatient Medications Medication Sig Dispense Refill albuterol HFA (PROVENTIL HFA,VENTOLIN HFA,PROAIR HFA) 90 mcg/actuation inhaler buPROPion XL (WELLBUTRIN XL) 300 mg 24 hr tablet Take 1 tablet (300 mg total) by mouth every morning 90 tablet 1 hydrOXYzine (VISTARIL) 50 mg capsule Take 1 capsule (50 mg total) by mouth 3 (three) times a day asneeded for itching 90 capsule 1 lamoTRIgine (LaMICtal) 200 mg tablet Take 1 tablet (200 mg total) by mouth daily 90 tablet 1 mirtazapine (REMERON) 15 mg tablet Take 1 tablet (15 mg total) by mouth nightly 90 tablet 0 naltrexone (DEPADE) 50 mg tablet Take 1 tablet (50 mg total) by mouth daily [address] (PROTONIX) 40 mg EC tablet Take 1 tablet (40 mg total) by mouth 2 (two) times a day60 tablet 11 propranoloL (INDERAL) 20 mg tablet traZODone (DESYREL) 150 mg tablet Take 1 tablet (150 mg total) by mouth nightly 90 tablet 0 Vraylar 1.5 mg capsule capsule Take 1 capsule (1.5 mg total) by mouth daily 90 capsule 0 No current facility-administered medications for this visit. Allergies as of 04/27/2024 (No Known Allergies) Social History Tobacco Use [...] Negative for chills, fatigue and fever. HENT: Negative for congestion, ear pain, hearing loss, rhinorrhea, sore throat and tinnitus. Eyes: Negative for pain, discharge and visual disturbance. Respiratory: Negative for cough, shortness of breath and wheezing. Cardiovascular: Negative for chest pain, palpitations and leg swelling. Gastrointestinal: Negative for abdominal pain, constipation, diarrhea, nausea and vomiting. Genitourinary: Negative for dysuria and frequency. Musculoskeletal: Negative for myalgias. Skin: Negative for rash. Neurological: Negative for dizziness, light-headedness and headaches. Psychiatric/Behavioral: The patient is not nervous/anxious. BP 126/74 (BP Location: Left arm, Patient Position: Sitting) Pulse 76 Temp 36.7 ??C (98 ??F) (Temporal) Ht 188 cm (6' 2.02 ) Wt 94.1 kg (207 lb 8 oz) SpO2 98% BMI 26.63 kg/m?? Physical Exam Vitals and nursing note reviewed. Constitutional: Appearance: Normal appearance. HENT: Head: Normocephalic and atraumatic. Right Ear: External ear normal. Left Ear: External ear normal. Nose: Nose normal. Mouth/Throat: Mouth: Mucous [...] respiratory distress. Breath sounds: Normal breath sounds. Abdominal: General: [...] Content: Thought content normal. Judgment: Judgment normal. No results found for: HGBA1C Lab Results Component Value Date CHOL 146 2019 Lab Results Component Value Date HDL 39 (L) 2019 Lab Results Component Value Date LDLCALC 78 2019 LDLDIRECT 89 2019 Lab Results Component Value Date TRIG 147 2019 Chemistry Lab Results Component Value Date SODIUM 135 03/27/2024 POTASSIUM 4.2 03/27/2024 CHLORIDE 100 03/27/2024 CO2 27 03/27/2024 ANIONGAP 9 03/27/2024 BUNSER 22 03/27/2024 CREATININE 1.32 (H) 03/27/2024 GLUCOSE 98 03/27/2024 CALCIUM 9.1 03/27/2024 BILITOT <0.2 03/27/2024 ALBUMIN 4.1 03/27/2024 GFRNAA 73 03/27/2024 ALKPHOS 96 03/27/2024 AST 24 03/27/2024 ALT 19 03/27/2024 MAGNESIUM 1.8 01/09/2024 Shan Chou MD There may be syntax/grammatical errors in this note due to the use of voice recognition software. RN documented in this encounter Plan of Treatment Not on file documented as of this encounter Visit Diagnoses Diagnosis Gastroesophageal reflux disease with esophagitis without hemorrhage- Primary Tobacco abuse Tobacco use disorder Persistent cough for 3 weeks or longer documented in this encounter Discontinued Medications Medication Sig Discontinue Reason Start Date End Da te predniSONE (DELTASONE) 20 mg tablet Take 1 tablet (20 mg) by mouth 2 (two) times a day Therapy completed 04/09/2024 04/27/2024 azithromycin (ZITHROMAX) 250 mg tablet Therapy completed 04/09/2024 04/27/2024 Vraylar 1.5 mg capsule capsule Reorder 02/21/2024 04/27/2024 documented as of this encounter Historical Medications * This list may reflect changes made after this encounter. azithromycin (ZITHROMAX) 250 mg tablet 04/09/2024 04/27/2024 predniSONE (DELTASONE) 20 mg tablet Take 1 tablet (20 mg) by mouth 2 (two) times a day 04/09/2024 04/27/2024 added in this encounter Care Teams Staff Appraiser Relationship Specialty Start Date End Date Shan Chou MD [address] [address] PCP - General Family Practice 03/27/24 documented as of this encounter
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
--- OUTSIDE RECORDS SUMMARY | 2024-06-10 14:58 | XMS_ITS | Encounter Summary ---
Author Organization [facility] Healthcare Address [address] [place] [id number] Care Team Providers Care Sheet Metal Duct Installer Name Role Phone No, Physician Primary Care Provider [phone] Reason for Visit * Reason Comments Chest Pain Encounter Details Date Type Department Care Team (Late st Contact Info) Description 10/04/2023 7:47 AM CDT - 10/04/2023 1:25 PM CDT Emergency [facility] Emergency Department [address] [place] [id number] Dari Chamorro MD [address] [place] [address] [place] [address] Chest pain, unspecified type (Primary Dx); Amphetamine use; Cocaine use Discharge Disposition: Discharge to home or self [...] on file 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 Gender Identity Not on file Sexual Orientation Not on file documented as of this encounter Last Filed Vital Signs Vital Sign Reading Time Taken Comments Blood Pressure 123/90 10/04/2023 1:00 PM CDT Pulse 84 10/04/2023 1:00 PM CDT Temperature 36.7 ??C (98.1 ??F) 10/04/2023 7:53 AM CD T Respiratory Rate 13 10/04/2023 1:00 PM CDT Oxygen Saturation 98% 10/04/2023 1:00 PM CDT Inhaled Oxygen Concentration - - Weight 81.6 kg (180 lb) 10/04/2023 7:53 AM CDT Height - - Body Mass Index 22.5 08/18/2022 12:15 AM CDT documented in this encounter Discharge Instructions * Discharge Instructions* Dari Chamorro MD - 10/04/2023 12:00 PM CDT Follow-up with your doctor in 2-3 days. Return to the ER with worsening symptoms or with concerns. 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 Pain is midsternal. Patient is anxious. There are no problems to display for [...] Systems Review of Systems Constitutional: Negative for fatigue. HENT: Negative for congestion. Eyes: Negative for pain. Respiratory: Negative for chest tightness. Cardiovascular: Positive for chest pain. Gastrointestinal: Negative for constipation. Endocrine: Negative for polydipsia. Genitourinary: Negative for dysuria. Musculoskeletal: Negative for back pain. Allergic/Immunologic: Negative for food allergies. Neurological: Negative for headaches. Hematological: Negative for adenopathy. Psychiatric/Behavioral: The patient is nervous/anxious. Physical Exam ED Triage Vitals [10/04/23 0753] Temp Pulse Resp BP SpO2 36.7 ??C (98.1 ??F) 116 18 159/75 100 % Temp src Heart Rate Source Patient Position BP Location FiO2 (%) -- -- -- -- -- Height Height Method Weight Weight Method -- -- 81.6 kg (180 lb) -- Physical Exam Vitals and nursing note reviewed. Constitutional: Appearance: He is normal weight. HENT: Head: Normocephalic and atraumatic. Eyes: Extraocular Movements: Extraocular movements intact. Pupils: Pupils are equal, round, and reactive to light. Cardiovascular: Rate and Rhythm: Regular rhythm. Tachycardia present. Pulses: Carotid pulses are 2+ on the right side and 2+ on the left side. Radial pulses are 2+ on the right side and 2+ on the left side. Dorsalis pedis pulses are 2+ on the right side and 2+ on the left side. Posterior tibial pulses are 2+ on the right side and 2+ on the left side. Heart sounds: Normal heart sounds. Pulmonary: Effort: Pulmonary effort is normal. Breath sounds: Normal breath sounds. No decreased breath sounds. Chest: Chest wall: No tenderness. Abdominal: General: Bowel sounds are normal. Tenderness: There is no guarding. Musculoskeletal: General: Normal range of motion. Cervical back: Normal range of motion and neck supple. Right lower leg: No tenderness. Left lower leg: No tenderness. Skin: General: Skin is warm and dry. Capillary Refill: Capillary refill takes less than 2 seconds. Neurological: General: No focal deficit present. Mental Status: He is alert. Psychiatric: Mood and Affect: Mood is anxious. MDM Medical Decision Making This is a 33-year-old male with a history of asthma, methamphetamine abuse who is clean for a period of time until June when he began using again presents via EMS after drinking last night and using meth and developing chest pain. Differential includes methamphetamine use, alcohol use, ACS, other Amount and/or Complexity of Data Reviewed Independent Historian: EMS External Data Reviewed: notes. Labs: ordered. Decision-making details documented in ED Course. Radiology: ordered. ECG/medicine tests: ordered. Risk OTC drugs. ED Course as of 10/04/23 1201 Time: 10/03 841 Comment: EKG done at 8:02 a.m. sinus tachycardia rate 111 incomplete right bundle-branch block no acute ST changes By: Dari Chamorro MD Time: 10/03 844 Value: Lactate(!!): 6.3 Comment: (Reviewed) By: Dari Chamorro MD Time: 10/03 844 Value: Anion gap(!): 20 Comment: (Reviewed) By: Dari Chamorro MD Time: 10/03 1034 Value: Amphetamine, ur(!): Screen Positive, presumptive Comment: (Reviewed) By: Dari Chamorro MD Time: 10/03 1034 Value: Cocaine(!): Screen Positive, presumptive Comment: (Reviewed) By: Dari Chamorro MD Time: 10/03 1034 Value: Ethanol(!): 42 Comment: (Reviewed) By: Dari Chamorro MD Time: 10/03 104 Comment: Patient is on the phone making plans for rehab. Feeling much better No sx By: Dari Chamorro MD Time: 10/03 974 Comment: Uzair from [facility] has seen the patient and will work with him once he has at a rehabfor outpatient. By: Dari Chamorro MD Final diagnoses: Chest pain, unspecified type Amphetamine use Cocaine use Dari Chamorro MD 10/04/23 1201 * Giovanna Randolph RN - 10/04/2023 7:47 AM CDT Pt arrives to ED via [facility] c/o chest pain and anxiety. Pt states he was at the bar drinking last night and smoked meth. Pt states his last drink was 3 hours ago. * Katharina Sue RN - 10/04/2023 7:47 AM CDT Bed: ED11 Expected date: Expected time: Means of arrival: Comments: [facility] Katharina Sue RN 10/04/23 0747 documented in this encounter Plan of Treatment Not on file documented as of this encounter Procedures Procedure Name Priority Date/Time Associated Diagnosis Comments SEPSIS LACTATE WITH REFLEX Timed 10/04/2023 10:54 AM CDT TROPONIN T HIGH-SENSITIVITY 2-HOUR Timed 10/04/2023 10:13 AM CDT XR CHEST 1 VIEW ED 10/04/2023 8:59 AM CDT URINALYSIS AND REFLEX TO MICROSCOPIC AND CULTURE STAT 10/04/2023 8:30 AM CDT DRUGS OF ABUSE SCREEN, URINE WITHOUT CONFIRMATION STAT 10/04/2023 8:30 AM CDT TROPONIN T HIGH-SENSITIVITY SERIES (BASELINE, 2HR, 4HR, 6HR) STAT 10/04/2023 8:10 AM CDT SEPSIS LACTATE WITH REFLEX STAT 10/04/2023 8:10 AM CDT EGFR STAT 10/04/2023 8:10 AM CDT DIFFERENTIAL AUTO STAT 10/04/2023 8:1 0 AM CDT CBC WITH AUTO DIFFERENTIAL STAT 10/04/2023 8:10 AM CDT ETHANOL STAT 10/04/2023 8:10 AM CDT COMPREHENSIVE METABOLIC PANEL STAT 10/04/2023 8:10 AM CDT ECG 12-LEAD STAT 10/04/2023 8:02 AM CDT documented in this encounter Results * Sepsis Lactate w/ Reflex (10/04/2023 10:54 AM CDT) Sepsis Lactate 1.5 0.7 - 2.0 mmol/L Blood 10/04/2023 10:5 4 AM CDT 10/04/2023 10:56 AM CDT Dari Chamorro MD LAB BLOOD ORDERABLES Cyndie l Result [facility] ([place]) [facility] Department [place] [address] * Troponin T high-sensitivity 2-hour (10/04/2023 10:13 AM CDT) Trop T hs 8 <=22 ng/L Comment: Interpretive Data For further hscTnT resources including the diagnostic algorithm and an aid in interpretation, copy and paste this link: https://nrl.testcatalog.org/show/hsTrop Current Interpretive Data last revised 2020. Trop T hs delta 1 ng/L [facility] ([place]) Trop T hs interp Insignificant [facility] ([place]) Blood 10/04/2023 10:1 3 AM CDT 10/04/2023 10:15 AM CDT us Dari Chamorro MD LAB BLOOD ORDERABLES Cyndie chalino Result [facility] [place] [facility] Department of Laboratories [place], [place] [id number] * XR Chest 1 Vw Portable (10/04/2023 8:59 AM CDT) Anatomical Region Laterality Modality Body, Chest N/A Computed Radiogr aphy 10/04/2023 9:02 AM CDT Narrative 10/04/2023 9:03 AM CDT EXAM DESCRIPTION: XR CHEST 1 VIEW REASON FOR STUDY: cough ?? c/o chest pain and anxiety. Pt states he was at the bar drinking last night and smoked meth. Pt states his last drink was 3 hours ago ? TECHNIQUE: Single frontal ??radiographic view(s) of the chest. COMPARISON: 08/31/2021 FINDINGS: The heart, mediastinum, and pulmonary vasculature are grossly stable. ??There is no definite evidence of a pneumothorax. ??There is no definite evidence of focal consolidation or pleural effusion. The osseous structures are acutely grossly stable. IMPRESSION: No acute cardiopulmonary abnormality. THIS IS AN ELECTRONICALLY VERIFIED FINAL REPORT 10/04/2023 9:03 AM - Electronically signed by ??Olivia Baum D.O. PS: PS D: ??10/04/2023 9:03 AM T: ??10/04/2023 9:03 AM Report ID: [id number] Reading Location: ??[id number] Procedure Note Olivia Baum DO - 10/04/2023 EXAM DESCRIPTION: XR CHEST 1 VIEW REASON FOR STUDY: cough c/o chest pain and anxiety. Pt states he was at the bar drinking lastnight and smoked meth. Pt states his last drink was 3 hours ago TECHNIQUE: Single frontal radiographic view(s) of the chest. COMPARISON: 08/31/2021 FINDINGS: The heart, mediastinum, and pulmonary vasculature are grossly stable.There is no definite evidence of a pneumothorax. There is no definite evidenceof focal consolidation or pleural effusion. The osseous structures are acutely grossly stable. IMPRESSION: No acute cardiopulmonary abnormality. THIS IS AN ELECTRONICALLY VERIFIED FINAL REPORT 10/04/2023 9:03 AM - Electronically signed by Olivia Baum D.O. PS: PS Report ID: [id number] Reading Location: [place] [address] Dari Chamorro MD IMG XR PROCEDURES Final R esult * (ABNORMAL) Urinalysis reflex to microscopic and culture Urine (10/04/2023 8:30 AM CDT) Color, ur Straw Yellow Clarity, ur Clear Clear [facility] ([place]) Specific gravity, ur 1.002(L) 1.003 - 1.030 [facility] ([place]) pH, urine 6.5 [facility] ([place] Comment: Interpretive Data ? Urine pH is affected by diet, medications, systemic acid-base disturbances, and renal tubular function. ??pH may affect urinary stone formation. ??For example, urine pH below 6.0 may help reduce the tendency for calcium phosphate stones and pH greater than 6.0 may reduce the tendency for uric acid stone formation. Source: [employer] Current Interpretive Data was last revised on 2017 Protein, ur ql Negative Negative [facility] ([place]) Glucose, ur ql Negative Negative [facility] ([place]) Ketones, ur Trace Negative [facility] ([place]) Bilirubin, ur Negative Negative [facility] ([place]) Blood, ur Negative Negative [facility] ([place]) Urobilinogen, ur <2.0 <2.0 mg/dL [facility] ([place]) Nitrite, ur Negative Negative [facility] ([place]) Leukocyte esterase, ur Negative Negative [facility] ([place]) UA reflex comment Reflex conditions for microscopic UA and culture not met. [facility] ([place]) Urine 10/04/2023 8:30 AM CDT 10/04/2023 8:34 AM CDT Dari Chamorro MD LAB MICROBIOLOGY - GENERA L ORDERABLES Final Result [facility] ([place]) [address] [facility] Department [place] [address] * (ABNORMAL) Drugs of Abuse Screen, Urine without Confirmation (10/04/2023 8:30 AM CDT) [facility] Amphetamine, ur Screen Positive, presumptive (A) CutOff 500ng/mL Comment: Interpretive Data - Amphetamines: [...] 2023. Benzodiazepines, ur Not Detected CutOff 100ng/mL [facility] ([place]) Comment: Interpretive Data - Benzodiazepines: ??Samples containing greater than 100 ng/mL nordiazepam or other cross-reacting compounds are reported as positive. False positive and false negative results are possible. Confirmatory testing required for definitive results. Current Interpretive Data was last reviewed 2023. Cannabinoids, ur Not Detected CutOff 50 ng/mL [facility] ([place]) Comment: Interpretive Data - Cannabinoids: ??Samples containing greater than 50 ng/mL delta-9 THC -COOH or other cross-reacting compounds are reported as positive. ??False positive and false negative results are possible. ??Confirmatory testing required for definitive results. Current Interpretive Data was last reviewed 2023. Cocaine, ur Screen Positive, presumptive (A) CutOff 150ng/mL [facility] ([place]) Comment: Interpretive Data - Cocaine: ??Samples [...] Data was last reviewed 2023. Urine Creatinine 25 mg/dL [facility] ([place]) Comment: Interpretive Data Urine Creatinine: < 10 mg/dL is extremely dilute = or > 10 but < 20 mg/dL is dilute = or > 20 mg/dL is normal Current Interpretive Data was last revised on 2017. Urine 10/04/2023 8:30 AM CDT 10/04/2023 8:34 AM CDT Narrative [facility] ([place] - 10/04/2023 9:04 AM CDT Drug of Abuse screening is performed by immunoassay for medical purposes only. ??This is not to be used for Pain Management purposes. us Dari Chamorro MD LAB URINE ORDERABLES Cyndie chalino Result [facility] ([place] [address] [facility] Department [place] [address] * eGFR (10/04/2023 8:10 AM CDT) eGFR >90 >=60 mL/min/1. 73 m2 [...] interpretive data was last reviewed 2021. Blood 10/04/2023 8:10 AM CDT 10/04/2023 8:14 AM CDT Dari Chamorro MD LAB BLOOD ORDERABLES Cyndie allred Result Performing Organization Address [facility] Co de Phone Number [facility] ([place]) 1 [facility] [address] * (ABNORMAL) Ethanol (10/04/2023 8:10 AM CDT) Ethanol 42(H) <=10 mg/dL Comment: Interpretive Data Legal limit of intoxication > or = 80 mg/dL Levels > or = 400 mg/dL are potentially TOXIC. Current interpretive data was last revised on 2018. Blood 10/04/2023 8:10 AM CDT 10/04/2023 8:35 AM CDT Dari Chamorro MD LAB BLOOD ORDERABLES Cyndie allred Result Performing Organization Address [facility] de Phone Number [facility] ([place]) [address] [facility] [place] [address] * (ABNORMAL) Differential, auto (10/04/2023 8:10 AM CDT) Pathologist [facility] Neutrophil abs 4.7 1.5 - 6.5 K/cumm Imm gran abs 0.0 0.0 - 0.1 K/cumm [facility] ([place]) Lymphocyte abs 2.3 0.8 - 3.3 K/cumm [facility] ([place]) Monocyte abs 1.0(H) 0.2 - 0.8 K/cumm [facility] ([place]) Eosinophil abs 0.0 0.0 - 0.5 K/cumm [facility] ([place]) Basophil abs 0.1 0.0 - 0.1 K/cumm [facility] ([place]) Neutrophil pct 58.3 % [facility] ([place]) Comment: Interpretive [...] was last revised on 2017. Lymphocyte pct 28.0 % [facility] ([place] Comment: Interpretive Data Percent cell count reference ranges are not reported, since discordance with absolute values may lead to misinterpretation of CBC data. Current Interpretive Data was last revised on 2017. Monocyte pct 12.0 % [facility] ([place]) Comment: Interpretive Data Percent cell count reference ranges are not reported, since discordance with absolute values may lead to misinterpretation of CBC data. Current Interpretive Data was last revised on 2017. Eosinophil pct 0.5 % [facility] ([place] Comment: Interpretive Data Percent cell count reference ranges are not reported, since discordance with absolute values may lead to misinterpretation of CBC data. Current Interpretive Data was last revised on 2017. Basophil pct 1.0 % [facility] ([place] Comment: Interpretive Data Percent cell count reference ranges are not reported, since discordance with absolute values may lead to misinterpretation of CBC data. Current Interpretive Data was last revised on 2017. Blood 10/04/2023 8:10 AM CDT 10/04/2023 8:14 AM CDT Dari Chamorro MD LAB BLOOD ORDERABLES Cyndie allred Result [facility] ([place]) [address] [facility] Department [place] [address] * (ABNORMAL) Sepsis Lactate w/ Reflex (10/04/2023 8:10 AM CDT) Sepsis Lactate 6.3(C) 0.7 - 2.0 mmol/L Comment:Critical result call ed to and read back by Taye Sue (ER) on 10/04/2023 08:26:59 CDT to Gene Clemons. Blood 10/04/2023 8:10 AM CDT 10/04/2023 8:14 AM CDT Dari Chamorro MD LAB BLOOD ORDERABLES Cyndie l Result Performing Organization Address City/[facility]/ZIP Co de Phone Number [facility]) [address] [place] [address] * Troponin T high-sensitivity series (baseline, 2hr, 4hr, 6hr) (10/04/2023 8:10 AM CDT) Pathologist [facility] Trop T hs 7 <=22 ng/L Comment: Interpretive Data For further hscTnT resources including the diagnostic algorithm and an aid in interpretation, copy and paste this link: https://nrl.testcatalog.org/show/hsTrop Current Interpretive Data last revised 2020. Blood 10/04/2023 8:10 AM CDT 10/04/2023 8:14 AM CDT Dari Chamorro MD LAB BLOOD ORDERABLES Cyndie l Result Performing Organization Address [facility] Co de Phone Number [facility] ([place]) [address] [place] [address] * (ABNORMAL) Comprehensive metabolic panel (10/04/2023 8:10 AM CDT) [facility] Sodium 137 135 - 145 mmol/L Potassium, pl 3.3 3.3 - 4.9 mmol/L [facility] ([place]) Chloride 101 97 - 110 mmol/L [facility] ([place]) CO2 16(L) 22 - 32 mmol/L [facility] ([place]) Anion gap 20(H) 2 - 15 mmol/L [facility] ([place]) BUN 10 6 - 25 mg/dL [facility] ([place]) Creatinine 0.97 0.80 - 1.30 mg/dL [facility] ([place]) Glucose 94 70 - 199 mg/dL [facility] ([place]) Comment: Interpretive Data Fasting [...] interpretive data was last revised 2022. Calcium 9.2 8.5 - 10.3 mg/dL [facility] ([place]) Bilirubin, total 0.5 0.1 - 1.2 mg/dL [facility] ([place]) Protein, pl 6.8 6.5 - 8.5 g/dL [facility] ([place]) Albumin 4.3 3.5 - 5.0 g/dL [facility] ([place]) Alk phos 75 40 - 130 Units/L [facility] ([place] ALT 23 7 - 55 Units/L [facility] ([place] AST 25 10 - 50 Units/L [facility] ([place]) Comment:Slightly Hemolyzed S pecimen Blood 10/04/2023 8:10 AM CDT 10/04/2023 8:14 AM CDT Dari Chamorro MD LAB BLOOD ORDERABLES Cyndie allred Result [facility] Department [place] [address] * CBC with auto differential (10/04/2023 8:10 AM CDT) WBC 8.1 3.8 - 9.9 K/cumm Hgb 15.6 13.0 - 17.5 g/dL [facility] ([place]) Hct 44.6 38.9 - 50.3 % [facility] ([place]) Plt 204 150 - 400 K/cumm [facility] ([place]) MPV 11.8 9.1 - 12.3 fL [facility] ([place]) RBC 5.01 4.30 - 5.80 M/cumm [facility] ([place]) MCV 89.0 81.3 - 96.4 fL [facility] ([place]) MCH 31.1 27.1 - 33.3 pg [facility] ([place]) MCHC 35.0 32.3 - 35.7 g/dL [facility] ([place]) RDW CV 13.2 11.1 - 14.9 % [facility] ([place]) RDW SD 43.1 35.7 - 48.1 fL [facility] ([place]) NRBC abs 0.00 0.00 - 0.01 K/cumm [facility] ([place]) Blood 10/04/2023 8:10 AM CDT 10/04/2023 8:14 AM CDT Dari Chamorro MD LAB BLOOD ORDERABLES Cyndie l Result Performing Organization Address [facility] Co de Phone Number [facility] ([place] [address] [facility] Department [place] [address] * ECG 12 lead (10/04/2023 8:02 AM CDT) 10/04/2023 8:02 AM CDT Narrative [facility] - 10/04/2023 11:09 AM CDT Vent Rate: 111 bpm RR Interval: 540 msec FL Interval: 139 msec QRS Duration: 102 msec QT Interval: 336 msec QTC Interval: 401 msec P-R-T [place]: 65 - 88 - 56 degrees IMPRESSION: SINUS TACHYCARDIA INCOMPLETE RIGHT BUNDLE BRANCH BLOCK ??[90+ ms QRS DURATION, TERMINAL R IN V1/V2, 40+ ms S IN I/aVL/V4/V5/V6] ABNORMAL RHYTHM ECG Electronically Signed By: Gage Blas MD Dari Chamorro MD ECG ORDERABLES Final Res ult Performing Organization Address [facility] Co de Phone Number [facility] [employer] [facility] documented in this encounter Visit Diagnoses Diagnosis Chest pain, unspecified type- Primary Amphetamine use Cocaine use documented in this encounter Administered Medications Inactive Administered Medications - up to 3 most recent administrations Medication Order MAR Action Action Date Dose Rate Site nicotine (NICODERM CQ) 21 mg patch 24 hour 1 patch 1 patch, transdermal, Administer over 24 Hours, Daily, First dose on Wed10/04/23 at 1006, Apply a new patch every 24 hours to a clean, dry, hairless site on the upper arm or hip. Rotate site. Medication Applied 10/04/2023 10:10 AM CDT 1 patch Right Arm sodium chloride 0.9% bolus 1,000 mL 1,000 mL, intravenous, at 1,000 mL/hr, Administer over 1 Hours, Once, On Wed10/04/23 at 0806, For 1 dose New Bag 10/04/2023 8:12 AM CDT 1,000 mL 1000 mL/hr sodium chloride 0.9% bolus 1,000 mL 1,000 mL, intravenous, at 1,000 mL/hr, Administer over 1 Hours, Once, On Wed10/04/23 at 1050, For 1 dose New Bag 10/04/2023 10:54 AM CDT 1,000 mL 1000 mL/hr documented in this encounter Active and Recently Administered Medications Times are shown in CDT. Scheduled Medication Order 10/02/2023 10/03/2023 10/04/2023 nicotine (NICODERM CQ) 21 mg patch 24 hour 1 patch 1 patch, transdermal, Administer over 24 Hours, Daily, First dose on Wed10/04/23 at 1006, Apply a new patch every 24 hours to a clean, dry, hairless site on the upper arm or hip. Rotate site. 1010 (Medication Ellen lied - Provider: Giovanna Randolph RN)1325 (Due: Medication Removed - Provider: Automatic Discharge Provider - Comment: Time automatically adjusted from order being discontinued) sodium chloride 0.9% bolus 1,000 mL (COMPLETED) 1,000 mL, intravenous, at 1,000 mL/hr, Administer over 1 Hours, Once, On Wed10/04/23 at 0806, For 1 dose 0812 (New Bag - Prov ider: Giovanna Randolph RN)0900 (Stopped - Provider: Giovanna Randolph RN) sodium chloride 0.9% bolus 1,000 mL (COMPLETED) 1,000 mL, intravenous, at 1,000 mL/hr, Administer over 1 Hours, Once, On Wed10/04/23 at 1050, For 1 dose 1054 (New Bag - Prov ider: Giovanna Randolph RN)1203 (Stopped - Provider: Giovanna Randolph, RN) documented in this encounter Orders Medications Ordered That Tone ht Not Have Been Administered Count Last Ordered Date First Ordered Date sodium chloride 0.9% bolus 1,000 mL 1 10/03 documented in this encounter Care Teams Sheet Metal Duct Installer Relationship Specialty Start Date End Date No, Physician PCP - General 10/04/23 03/26/24 documented as of this encounter
--- OUTSIDE RECORDS SUMMARY | 2024-06-10 14:59 | XMS_ITS | Encounter Summary ---
Author Organization [facility] Address [address] [place] [address] Care Team Providers Care Life Skills Coordinator Volunteer Name Role Phone Miscellaneous, Not In File Primary Care Provider Unavailable Encounter Details Date Type Department Care Team (Latest Contact Info) Description 04/13/2021 2:27 PM AUTOMOTIVE PARTS COUNTER PERSON - 04/13/2021 5:58 PM AUTOMOTIVE PARTS COUNTER PERSON Hospital Encounter [facility] 1 [place] [address] Discharge Disposition: Discharge to home or self care Social History Tobacco Use Types Packs/Day Years Used Date Smoking Tobacco: Smoker, Current Status Unknown Cigarettes Alcohol Use Standard Drinks/Week Comments Yes 0 (1 standard drink = 0.6 oz pur e alcohol) 3 times a week Sex and Gender Information Value Date Recorded Sex Assigned at Not on file Legal Sex Male 2:39 AM AUTOMOTIVE PARTS COUNTER PERSON Gender Identity Not on file Sexual Orientation Not on file documented as of this encounter Discharge Disposition Disposition Code Departure Means Destination Discharge to home or self care documented in this encounter Plan of Treatment Not on file documented as of this encounter Procedures Procedure Name Priority Date/Time Associated Diagnosis Comments XR CHEST PA LATERAL 2 VIEWS ED 04/13/2021 2:31 PM AUTOMOTIVE PARTS COUNTER PERSON documented in this encounter Results * XR Chest Pa Lateral 2 Views (04/13/2021 2:31 PM AUTOMOTIVE PARTS COUNTER PERSON) Anatomical Region Laterality Modality Body, Chest N/A Computed Radiogr aphy 04/13/2021 2:39 PM AUTOMOTIVE PARTS COUNTER PERSON Impressions 04/13/2021 5:10 PM AUTOMOTIVE PARTS COUNTER PERSON 1. Clear lungs. No definite pneumothorax seen. Dictated by: Sandi Burgess M.D. The radiology attending physician has personally reviewed this study, and had reviewed and/or edited this written report and agrees with it. Electronically signed by: Johnny Denney M.D. Narrative 04/13/2021 5:10 PM AUTOMOTIVE PARTS COUNTER PERSON EXAMINATION: XR CHEST PA LATERAL 2 VIEWS HISTORY: Shortness of breath, concern for right apical pneumothorax COMPARISON: Chest radiograph 04/12/2021 FINDINGS: No consolidation or pulmonary edema. No pleural effusion. No definite right apical pneumothorax is seen. No left pneumothorax. Cardiomediastinal silhouette is stable. No displaced rib fractures. Procedure Note Johnny Denney MD PhD - 04/13/2021 EXAMINATION: XR CHEST PA LATERAL 2 VIEWS HISTORY: Shortness of breath, concern for right apical pneumothorax COMPARISON: Chest radiograph 04/12/2021 FINDINGS: No consolidation or pulmonary edema. No pleural effusion. No definite right apical pneumothorax is seen. No left pneumothorax. Cardiomediastinal silhouette is stable. No displaced rib fractures. IMPRESSION: 1. Clear lungs. No definite pneumothorax seen. Dictated by: Sandi Burgess M.D. The radiology attending physician has personally reviewed this study, and had reviewed and/or edited this written report and agrees with it. Electronically signed by: Johnny Denney M.D. Nemo Oliva MD IMG XR PROCEDURES Final Result documented in this encounter Visit Diagnoses Not on filedocumented in this encounter Care Teams Life Skills Coordinator Volunteer Relationship Specialty Start Date End Date Miscellaneous, Not In File PCP - General 04/13/21 documented as of this encounter
--- OUTSIDE RECORDS SUMMARY | 2024-06-10 14:59 | XMS_ITS | Encounter Summary ---
Author Organization [facility] Address [address] [place] [address] Care Team Providers Care Lumber Scaler Name Role Phone Adalid Turpin DYER AND WASHER Primary Care Provider [phone] Encounter Details Date Type Department Care Team (Late st Contact Info) Description 2019 11:10 AM CDT [facility] 1 [place] [address] Adalid Turpin, VARGAS [address] [place] [address] [address] Discharge Disposition: Discharge to home or self care Social History Tobacco Use Types Packs/Day Years Used Date Smoking Tobacco: Smoker, Current Status Unknown Sex and Gender Information Value Date Recorded Sex Assigned at Not on file Legal Sex Male 2:39 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 Gender Identity Not on file Sexual Orientation Not on file documented as of this encounter Discharge Disposition Disposition Code Departure Means Destination Discharge to home or self care documented in this encounter Plan of Treatment Not on file documented as of this encounter Procedures Procedure Name Priority Date/Time Associated Diagnosis Comments EGFR Routine 2019 11:11 AM CDT DIFFERENTIAL AUTO Routine 2019 11: 11 AM CDT CBC WITH AUTO DIFFERENTIAL Routine 2019 11:11 AM CDT TSH Routine 2019 11:11 AM CDT CHOLESTEROL, LDL, DIRECT Routine 2019 11:11 AM CDT LIPID PANEL Routine 2019 11:11 AM CDT COMPREHENSIVE METABOLIC PANEL Routine 2019 11:11 AM CDT documented in this encounter Results * eGFR (2019 11:11 AM CDT) eGFR 103 mL/min/1.7 3 m2 [facility] ([place]) Comment: Interpretive Data Reference Interval Normal ?>/= 90 mL/min/1.73m2 Mildly decreased* ? 60 - 89 mL/min/1.73m2 Mildly to moderately decreased ?45 - 59 mL/min/1.73m2 Moderately to severely decreased ??30 - 44 mL/min/1.73m2 Severely decreased ?15 - 29 mL/min/1.73m2 Kidney Failure ?< 15 ??mL/min/1.73m2 *Relative to young adult level If -Belgian multiply value by 1.16. Estimated glomerular filtration rate is determined by the CKD-EPI equation recommended by the National Kidney Foundation (KDIGO 2012 Clinical Practice Guideline for the Evaluation and Management of Chronic Kidney Disease. Kidney Intnl Suppl Jun 2012;3:1). The CKD-EPI equation should not be used for patients with unstable renal function and has not been validated in children and those over 70. Current interpretive data was last reviewed 2015. Blood specimen (specimen) 2019 11:11 AM CDT 2019 11:33 AM CDT us Adalid Turpin NP LAB BLOOD ORDERABLES Final Re sult [facility] ([place] [address] [place], [place] [id number] * (ABNORMAL) Differential, auto (2019 11:11 AM CDT) Neutrophil abs 3.9 1.7 - 6.5 K/cumm [facility] ([place]) Imm gran abs 0.0 0.0 - 0.1 K/cumm [facility] ([place]) Lymphocyte abs 2.2 0.8 - 3.3 K/cumm [facility] ([place]) Monocyte abs 1.0(H) 0.2 - 0.8 K/cumm [facility] ([place]) Eosinophil abs 0.5 0.0 - 0.5 K/cumm [facility] ([place]) Basophil abs 0.1 0.0 - 0.1 K/cumm [facility] ([place]) Neutrophil pct 50.5 % [facility] ([place]) Comment: Interpretive Data Percent cell count reference ranges are not reported, since discordance with absolute values may lead to misinterpretation of CBC data. Current Interpretive Data was last revised on 2017. Imm gran pct 0.7 % [facility] ([place]) Comment: Interpretive Data Percent cell count reference ranges are not reported, since discordance with absolute values may lead to misinterpretation of CBC data. Current Interpretive Data was last revised on 2017. Lymphocyte pct 28.3 % [facility] ([place]) Comment: Interpretive Data Percent cell count reference ranges are not reported, since discordance with absolute values may lead to misinterpretation of CBC data. Current Interpretive Data was last revised on 2017. Monocyte pct 13.3 % [facility] ([place]) Comment: Interpretive Data Percent cell count reference ranges are not reported, since discordance with absolute values may lead to misinterpretation of CBC data. Current Interpretive Data was last revised on 2017. Eosinophil pct 6.3 % [facility] ([place]) Comment: Interpretive [...] Data was last revised on 2017. Blood specimen (specimen) 2019 11:11 AM CDT 2019 11:33 AM CDT Adalid Turpin DYER AND WASHER LAB BLOOD ORDERABLES Final [facility]ult [facility] ([place]) 1 [place] [address] * Comprehensive metabolic panel (2019 11:11 AM CDT) Sodium 138 135 - 145 mmol/L [facility] ([place]) Potassium, pl 3.8 3.3 - 4.9 mmol/L [facility]) Chloride 99 97 - 110 mmol/L [facility]) CO2 28 22 - 32 mmol/L [facility] ([place] Anion gap 11 2 - 15 mmol/L [facility] ([place]) BUN 18 8 - 25 mg/dL [facility] ([place]) Creatinine 0.99 0.80 - 1.30 mg/dL [facility] ([place]) Glucose 93 70 - 199 mg/dL [facility] Comment: Interpretive Data Fasting glucose [...] classification and Diagnosis of Diabetes Diabetes Care 2017;40 (Suppl. 1):S11. Current interpretive data was last revised 2017. Calcium 9.6 8.5 - 10.3 mg/dL [facility] ([place]) Bilirubin, total 0.4 0.1 - 1.2 mg/dL [facility] ([place]) Protein, pl 7.0 6.5 - 8.5 g/dL [facility] ([place]) Albumin 4.3 3.5 - 5.0 g/dL [facility] ([place]) Alk phos 79 40 - 130 Units/L [facility] ([place]) ALT 26 7 - 55 Units/L [facility] ([place]) AST 26 10 - 50 Units/L [facility] ([place]) Blood specimen (specimen) 2019 11:11 AM CDT 2019 11:33 AM CDT Adalid Turpin NP LAB BLOOD ORDERABLES Final Re sult Performing Organization Address [facility] de Phone Number [facility] ([place] [address] [place] [address] * Cholesterol, LDL, direct (2019 11:11 AM CDT) LDL Cholesterol, Direct 89 <=129 mg/dL [facility] ([place]) Comment: Interpretive Data Ages < or = 19 years ??Acceptable: ? <110 mg/dL ??Borderline high: ??110-129 mg/dL ??High: ?>or= 130 mg/dL Ages > or = 20 years ??Optimal: ? <100 mg/dL ??Near optimal: ?100-129 mg/dL ??Borderline high: ?? 130-159 mg/dL ??High: ?>160 mg/dL Literature References: 1. Expert Panel on Integrated Guidelines for Cardiovascular Health and Risk Reduction in Children and Adolescents. Pediatrics 2011;128:S213 2. NCEP Expert Panel. Circulation 2004;110:227 Current Interpretive Data was last revised on 2018. Testing performed by: [facility], [address] [place] [address]., [id number] Blood specimen (specimen) 2019 11:11 AM CDT 2019 4:39 PM CDT Adalid Turpin NP LAB BLOOD ORDERABLES Final Re sult Performing Organization Address [facility] Co de Phone Number [facility] ([place] [address] [place] [address] * (ABNORMAL) Lipid panel (2019 11:11 AM CDT) Cholesterol 146 30 - 199 mg/dL [facility]) Comment: Interpretive Data Ages < or = 19 years ??Acceptable: ? <170 mg/dL ??Borderline high: ??170-199 mg/dL ??High: ? >or= 200 mg/dL Ages > or = 20 years ??Desirable: ?<200 mg/dL ??Borderline high: ??200-239 mg/dL ??High: ? >or= 240 mg/dL Literature References: 1. Expert Panel on Integrated Guidelines for Cardiovascular Health and Risk Reduction in Children and Adolescents. Pediatrics 2011;128:S213 2. NCEP Expert Panel. Circulation 2004;110:227 Current Interpretive Data was last revised on 2018. Triglycerides 147 <=149 mg/dL [facility]) Comment: Interpretive Data Ages < or = 9 years ??Acceptable: ? <75 mg/dL ??Borderline high: ??75-99 mg/dL ??High: ? >or= 100 mg/dL Ages 10 to 20 years ??Acceptable: ? <90 mg/dL ??Borderline high: ??90-129 mg/dL ??High: ? >or= 130 mg/dL Ages > or = 20 years ??Desirable: ?<150 mg/dL ??Borderline high: ??150-199 mg/dL ??High: ? 200-499 mg/dL ?Very high: ?? >or= 499 mg/dL Literature References: 1. Expert Panel on Integrated Guidelines for Cardiovascular Health and Risk Reduction in Children and Adolescents. Pediatrics 2011;128:S213 2. NCEP Expert Panel. Circulation 2004;110:227 Current Interpretive Data was last revised on 2018. HDL 39(L) >=40 mg/dL [facility]) Comment: Interpretive Data Ages < or = 19 years ??Acceptable: ? >45 mg/dL ??Borderline low: ?? 40-45 mg/dL ??Low: ? <40 mg/dL Ages > or = 20 years ??Desirable: ?>or= 60 mg/dL ??Low: ? <40 mg/dL Literature References: 1. Expert Panel on Integrated Guidelines for Cardiovascular Health and Risk Reduction in Children and Adolescents. Pediatrics 2011;128:S213 2. NCEP Expert Panel. Circulation 2004;110:227 Current Interpretive Data was last revised on 2018. LDL, calculated 78 <=129 mg/dL [facility] ([place]) Comment: Interpretive Data Ages < or = 19 years ??Acceptable: ? <110 mg/dL ??Borderline high: ??110-129 mg/dL ??High: ?>or= 130 mg/dL Ages > or = 20 years ??Optimal: ? <100 mg/dL ??Near optimal: ?100-129 mg/dL ??Borderline high: ?? 130-159 mg/dL ??High: ?>160 mg/dL Literature References: 1. Expert Panel on Integrated Guidelines for Cardiovascular Health and Risk Reduction in Children and Adolescents. Pediatrics 2011;128:S213 2. NCEP Expert Panel. Circulation 2004;110:227 Current Interpretive Data was last revised on 2018. Non-HDL Cholesterol 107 mg/dL [facility] ([place]) Comment: Interpretive Data Ages < or = 19 years ??Acceptable: ?<120 mg/dL ??Borderline high: ??120-144 mg/dL ??High: ?>145 mg/dL Ages > or = 20 years ??When triglycerides are >200 mg/dL, Non-HDL cholesterol is a secondary target of ? therapy with treatment goals that are 30 mg/dL greater than the LDL cholesterol target. ? Literature References: 1. Expert Panel on Integrated Guidelines for Cardiovascular Health and Risk Reduction in Children and Adolescents. Pediatrics 2011;128:S213 2. NCEP Expert Panel. Circulation 2004;110:227 Current Interpretive Data was last revised on 2018. Chol/HDL ratio 4 [facility] ([place]) Blood specimen (specimen) 2019 11:11 AM CDT 2019 11:33 AM CDT Adalid Turpin DYER AND WASHER LAB BLOOD ORDERABLES Final Re sult Performing Organization Address City/[facility]/ZIP Co de Phone Number [facility] ([place] [address] [place] [address] * TSH (2019 11:11 AM CDT) Thyroid Stimulating Hormone 2.12 0.30 - 4.20 mcIUnit/mL [facility] ([place]) Blood specimen (specimen) 2019 11:11 AM CDT 2019 11:33 AM CDT Adalid Turpin DYER AND WASHER LAB BLOOD ORDERABLES Final Re sult Performing Organization Address [facility] de Phone Number [facility] ([place]) [address] [place] [address] * CBC with auto differential (2019 11:11 AM CDT) WBC 7.7 3.8 - 9.9 K/cumm [facility] ([place]) Hgb 15.3 13.0 - 17.5 g/dL [facility] ([place]) Hct 44.0 38.9 - 50.3 % [facility] ([place]) Plt 193 150 - 400 K/cumm [facility] ([place]) MPV 12.0 9.1 - 12.3 fL [facility] ([place] RBC 4.91 4.30 - 5.80 M/cumm [facility] ([place]) MCV 89.6 81.3 - 96.4 fL [facility] ([place]) MCH 31.2 27.1 - 33.3 pg [facility] ([place]) MCHC 34.8 32.3 - 35.7 g/dL [facility] ([place]) RDW CV 12.5 11.1 - 14.9 % [facility] ([place]) RDW SD 41.1 35.7 - 48.1 fL [facility] ([place]) NRBC abs 0.00 0.00 - 0.01 K/cumm [facility] ([place]) Blood specimen (specimen) 2019 11:11 AM CDT 2019 11:33 AM CDT us Adalid Turpin NP LAB BLOOD ORDERABLES Final Re sult [facility] ([place]) [address] [place] [address] documented in this encounter Visit Diagnoses Not on filedocumented in this encounter Care Teams Lumber Scaler Relationship Specialty Start Date End Date Adalid Turpin NP [address] [place] [address] [address] ALC[address] [place] [address] PCP - General 02/21/19 04/11/21 documented as of this encounter
--- OUTSIDE RECORDS SUMMARY | 2024-06-10 14:59 | XMS_ITS | Encounter Summary ---
Author Organization [facility] Healthcare Address [address] [place] [address] Care Team Providers Care Bar And Filler Assembler Name Role Phone Adalid Turpin [employer] Primary Care Provider [phone] Reason for Visit * Reason Comments COVID-19 EVALUATION Encounter Details Date Type Department Care Team (Late st Contact Info) Description 05/26/2020 9:18 PM FINANCIAL 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 - 05/26/2020 10:30 PM FINANCIAL 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 Emergency [facility] Emergency Department [address] [place] [address] Sheri Rivera MD [address] [place] [address] Suspected COVID-19 virus infection (Primary Dx) Discharge Disposition: Discharge to home [...] on file Legal Sex Male 2:39 AM 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 Gender Identity Not on file Sexual Orientation Not on file documented as of this encounter Last Filed Vital Signs Vital Sign Reading Time Taken Comments Blood Pressure 149/90 05/26/2020 9:35 PM FINANCIAL 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 Pulse 81 05/26/2020 9:50 PM FINANCIAL 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 Temperature 37.1 ??C (98.7 ??F) 05/26/2020 7:46 PM CS T Respiratory Rate 16 05/26/2020 7:46 PM FINANCIAL 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 Oxygen Saturation 100% 05/26/2020 9:50 PM FINANCIAL 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 Inhaled Oxygen Concentration - - Weight 83.9 kg (185 lb) 05/26/2020 7:46 PM FINANCIAL 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 Height 190.5 cm (6' 3 ) 05/26/2020 7:46 PM FINANCIAL 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 Body Mass Index 23.12 05/26/2020 7:46 PM FINANCIAL 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 documented in this encounter Discharge Diagnoses Diagnosis Cough - COUGH Other specified disorders of nose and nasal sinuses - OTHER SPECIFIED DISORDERS OF NOSE AND NASAL SINUSES Myalgia, unspecified site - MYALGIA, UNSPECIFIED SITE Unspecified asthma, uncomplicated - UNSPECIFIED ASTHMA, UNCOMPLICATED Nicotine dependence, cigarettes, uncomplicated - NICOTINE DEPENDENCE, CIGARETTES, UNCOMPLICATED Contact with and (suspected) exposure to other viral communicable diseases - CONTACT WITH AND (SUSPECTED) EXPOSURE TO OTHER VIRAL COMMUNICABLE DISEASES documented in this encounter Discharge Instructions * Attachments The following attachments cannot be sent through Care Everywhere. * Coronavirus Disease 2019: Caring for Yourself and Others ([place]) documented in this encounter Discharge Disposition Disposition Code Departure Means Destination Discharge to home or self care documented in this encounter ED Notes * Sheri Rivera MD - 05/26/2020 10:30 PM CST HPI Chief Complaint Patient presents with ??? COVID-19 EVALUATION Paul is a 30-year-old male with a past medical history of asthma, current smoker, comes to the ER today for machuca virus 19. Evaluation and symptoms the patient notes last week a co-worker was diagnosed with COVID-19. He is not sure if he had been in close proximity to the worker since his job didnot disclose who the coronavirus patient was. 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 He notes 5 days ago he started coming down with a cough and URI type symptoms. He then lost his sense of smell and taste. Continues to have a mild cough fatigue had body aches, does not complain of significant shortness of breath at this time. Patient History: There are no active problems to display for this patient. Past Medical History: Diagnosis Date ??? Asthma No past surgical history on file. No family history on file. Social History Tobacco Use ??? Smoking status: Smoker, Current Status Unknown Packs/day: 1.00 Substance Use Topics ??? Alcohol use: Yes Comment: 3 times a week ??? Drug use: Not on file Social History Social History Narrative ??? Not on file Review of Systems Review of Systems Constitutional: Negative. Negative for activity change, appetite change, chills, diaphoresis, fatigue and fever. HENT: Positive for congestion and rhinorrhea. Negative for drooling and sore throat. Eyes: Negative. Negative for photophobia, redness and visual disturbance. Respiratory: Positive for cough. Negative for chest tightness and shortness of breath. Cardiovascular: Negative. Negative for chest pain, palpitations and leg swelling. Gastrointestinal: Negative. Negative for abdominal pain, anal bleeding, blood in stool, constipation, diarrhea, nausea and vomiting. Endocrine: Negative. Genitourinary: Negative. Negative for decreased urine volume, difficulty urinating, dysuria, frequency, hematuria and urgency. Musculoskeletal: Positive for arthralgias and myalgias. Skin: Negative. Negative for rash and wound. Allergic/Immunologic: Negative for immunocompromised state. Neurological: Negative. Negative for dizziness, weakness and headaches. Hematological: Negative. Does not bruise/bleed easily. Psychiatric/Behavioral: Negative. Negative for confusion. All other systems reviewed and are negative. Physical Exam ED Triage Vitals [05/26/201945] Temp Pulse Resp BP SpO2 37.1 ??C (98.7 ??F) 105 16 142/85 99 % Temp src Heart Rate Source Patient Position BP Location FiO2 (%) Temporal -- -- -- -- Physical Exam Vitals signs and nursing note reviewed. Constitutional: General: He is not in acute distress. Appearance: He is well-developed. He is not ill-appearing, toxic-appearing or diaphoretic. HENT: Head: Normocephalic and atraumatic. Eyes: General: No scleral icterus. Extraocular Movements: Extraocular movements intact. Conjunctiva/sclera: Conjunctivae normal. Pupils: Pupils are equal, round, and reactive to light. Neck: Musculoskeletal: Normal range of motion and neck supple. Thyroid: No thyromegaly. Vascular: No JVD. Trachea: No tracheal deviation. Cardiovascular: Rate and Rhythm: Normal rate. Pulmonary: Effort: Pulmonary effort is normal. No respiratory distress. Abdominal: General: Abdomen is flat. Musculoskeletal: Normal range of motion. Skin: General: Skin is warm and dry. Neurological: General: No focal deficit present. Mental Status: He is alert and oriented to person, place, and time. Mental status is at baseline. Motor: No abnormal muscle tone. Psychiatric: Mood and Affect: Mood normal. Behavior: Behavior normal. Thought Content: Thought content normal. Judgment: Judgment normal. MDM MDM Discussed all test results with the patient. All questions answered. Discussed returning to ED for worsening symptoms or if symptoms don't improve. Patient voiced understanding. Patient agrees with treatment plan and follow up. DISPOSITION:DISCHARGED Final diagnoses: Suspected COVID-19 virus infection There may be grammatical errors in this note due to use of voice recognition software. Sheri Rivera MD 05/26/20 0408 NCIAL 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 * Lita Escobar RN - 05/26/2020 7:45 PM CST Pt presents to the ED from home. Pt reports for three days he hasnt felt well and today has been worse. Pt reports nausea, headache, lost of taste. Pt reports congestion for 5 days. Pt reports possible exposure at work. NCIAL 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 documented in this encounter Plan of Treatment Not on file documented as of this encounter Procedures Procedure Name Priority Date/Time Associated Diagnosis Comments COVID-19 CORONAVIRUS RNA Routine 05/26/2020 9:51 PM FINANCIAL 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 EGFR STAT 05/26/2020 8:49 PM FINANCIAL 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 DIFFERENTIAL AUTO STAT 05/26/2020 8:4 9 PM FINANCIAL 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 CBC WITH AUTO DIFFERENTIAL STAT 05/26/2020 8:49 PM FINANCIAL 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 COMPREHENSIVE METABOLIC PANEL STAT 05/26/2020 8:49 PM FINANCIAL 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 documented in this encounter Results * COVID-19 Coronavirus RNA Nasopharyngeal (05/26/2020 9:51 PM FINANCIAL 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) COVID-19 RNA Not Detected [facility] ([place]) Comment: Interpretive Data Testing performed at [facility]ious Disease [facility]. The 2019-Novel Coronavirus Assay (COVID-19) Real Time RT-PCR assay is for in vitro diagnostic use under FDA emergency use authorization only. A negative RT-PCR result does not preclude infection with COVID-19 and should not be used as the sole basis for treatment or other patient management decisions. Additional sample types have been validated according to CLIA regulations. ?? Current Interpretive Data was last revised on 2019. Testing performed by: [facility], [address] [place] [address], [id number] First COVID-19 test? No [facility] ([place]) Comment:Testing performed by : [facility], [address] [place] [address], [id number] Employeed in healthcare? No [facility] ([place]) Comment:Testing performed by : [facility], [address] [place] [address], [id number] status? No [facility] ([place]) Comment:Testing performed by : [facility], [address] [place] [address], [id number] Group care resident? No [facility] ([place]) Comment:Testing performed by : [facility], [address] [place] [address], [id number] Hospitalized? No [facility] ([place]) Comment:Testing performed by : [facility], [address] [place] [address], [id number] Is patient in ICU? No [facility] ([place]) Comment:Testing performed by : [facility], [address] [place] [address], [id number] Symptomatic as defined by CDC? Yes [facility] ([place]) Comment:Testing performed by : [facility], [address] [place] [address], [id number] Nasopharyngeal 05/26/2020 9: 51 PM FINANCIAL 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 05/27/2020 3:28 AM FINANCIAL 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 Narrative [facility] ([place]) - 05/27/2020 1:36 PM FINANCIAL 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 What is the reason for testing?->Likely to be discharged Date of symptom onset->05/22/20 Sheri Rivera MD LAB MICROBIOLOGY - GENERAL ORDERABLES Final Result Performing Organization Address City/[facility]/ZIP Co de Phone Number [facility] ([place]) 1 [facility] [place] [place] [address] * eGFR (05/26/2020 8:49 PM FINANCIAL 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) eGFR 90 mL/min/1.7 3 m2 [facility] ([place]) Comment: Interpretive Data Reference Interval Normal ?>/= 90 mL/min/1.73m2 Mildly decreased* ? 60 - 89 mL/min/1.73m2 Mildly to moderately decreased ?45 - 59 mL/min/1.73m2 Moderately to severely decreased ??30 - 44 mL/min/1.73m2 Severely decreased ?15 - 29 mL/min/1.73m2 Kidney Failure ?< 15 ??mL/min/1.73m2 *Relative to young adult level If -Dutch multiply value by 1.16. Estimated glomerular filtration [...] was last reviewed 2015. Blood specimen (specimen) 05/26/2020 8:49 PM FINANCIAL 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 05/26/2020 9:00 PM FINANCIAL 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 Sheri Rivera MD LAB BLOOD ORDERABLE S Final Result Performing Organization Address City/[facility]/ZIP Co de Phone Number [facility] ([place]) 1 [facility] [place] [employer] [place] [address] * (ABNORMAL) Differential, auto (05/26/2020 8:49 PM FINANCIAL 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) Neutrophil abs 5.9 1.7 - 6.5 K/cumm [facility] ([place]) Imm gran abs 0.0 0.0 - 0.1 K/cumm [facility] ([place]) Lymphocyte abs 2.1 0.8 - 3.3 K/cumm [facility] ([place]) Monocyte abs 0.9(H) 0.2 - 0.8 K/cumm [facility] ([place]) Eosinophil abs 0.2 0.0 - 0.5 K/cumm [facility] ([place]) Basophil abs 0.1 0.0 - 0.1 K/cumm [facility] ([place]) Neutrophil pct 63.9 % [facility] ([place]) Comment: Interpretive [...] was last revised on 2017. Lymphocyte pct 22.5 % [facility] ([place]) Comment: Interpretive Data Percent cell count reference ranges are not reported, since discordance with absolute values may lead to misinterpretation of CBC data. Current Interpretive Data was last revised on 2017. Monocyte pct 9.9 % [facility] ([place]) Comment: Interpretive Data Percent cell count reference ranges are not reported, since discordance with absolute values may lead to misinterpretation of CBC data. Current Interpretive Data was last revised on 2017. Eosinophil pct 2.6 % [facility] ([place]) Comment: Interpretive Data Percent cell count reference ranges are not reported, since discordance with absolute values may lead to misinterpretation of CBC data. Current Interpretive Data was last revised on 2017. Basophil pct 0.8 % [facility] ([place]) Comment: Interpretive Data Percent cell count reference ranges are not reported, since discordance with absolute values may lead to misinterpretation of CBC data. Current Interpretive Data was last revised on 2017. Blood specimen (specimen) 05/26/2020 8:49 PM FINANCIAL 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 05/26/2020 9:00 PM FINANCIAL 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 us Sheri Rivera MD LAB BLOOD ORDERABLE S Final Result [facility] ([place]) 1 [facility] Department [place] [address] * Comprehensive metabolic panel (05/26/2020 8:49 PM FINANCIAL 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) Sodium 141 135 - 145 mmol/L [facility] ([place]) Potassium, pl 4.3 3.3 - 4.9 mmol/L [facility] ([place]) Chloride 106 97 - 110 mmol/L [facility] ([place]) CO2 26 22 - 32 mmol/L [facility] ([place]) Anion gap 9 2 - 15 mmol/L [facility] ([place]) BUN 9 8 - 25 mg/dL [facility] ([place]) Creatinine 1.10 0.80 - 1.30 mg/dL [facility] ([place]) Glucose 88 70 - 199 mg/dL [facility] ([place]) [...] interpretive data was last revised 2017. Calcium 9.4 8.5 - 10.3 mg/dL [facility] ([place]) Bilirubin, total 0.5 0.1 - 1.2 mg/dL [facility] ([place]) Protein, pl 6.9 6.5 - 8.5 g/dL [facility] ([place]) Albumin 4.6 3.5 - 5.0 g/dL [facility] ([place]) Alk phos 83 40 - 130 Units/L [facility] ([place]) ALT 16 7 - 55 Units/L [facility] ([place]) AST 23 10 - 50 Units/L [facility] ([place]) Blood specimen (specimen) 05/26/2020 8:49 PM FINANCIAL 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 05/26/2020 9:00 PM FINANCIAL 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 us Sheri Rivera MD LAB BLOOD ORDERABLE S Final Result [facility] ([place]) 1 [facility] Department [place] [address] * CBC with auto differential (05/26/2020 8:49 PM FINANCIAL 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) WBC 9.2 3.8 - 9.9 K/cumm [facility] ([place]) Hgb 16.2 13.0 - 17.5 g/dL [facility] ([place]) Hct 47.9 38.9 - 50.3 % [facility] ([place]) Plt 217 150 - 400 K/cumm [facility] ([place]) MPV 11.2 9.1 - 12.3 fL [facility] ([place]) RBC 5.36 4.30 - 5.80 M/cumm [facility] ([place]) MCV 89.4 81.3 - 96.4 fL [facility] ([place]) MCH 30.2 27.1 - 33.3 pg [facility] ([place]) MCHC 33.8 32.3 - 35.7 g/dL [facility] ([place]) RDW CV 12.6 11.1 - 14.9 % [facility] ([place]) RDW SD 41.0 35.7 - 48.1 fL [facility] ([place]) NRBC abs 0.00 0.00 - 0.01 K/cumm [facility] ([place]) Blood specimen (specimen) 05/26/2020 8:49 PM FINANCIAL 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 05/26/2020 9:00 PM FINANCIAL 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 us Sheri Rivera MD LAB BLOOD ORDERABLE S Final Result [facility] ([place]) 1 [facility] [place] [address] documented in this encounter Visit Diagnoses Diagnosis Suspected COVID-19 virus infection- Primary documented in this encounter Additional Health Concerns Infection Onset Date Last Indicated Resolved Time COVID: Suspected 05/26/2020 05/26/2020 05/27/2020 1:37 PM FINANCIAL 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 documented as of this encounter Care Teams Bar And Filler Assembler Relationship Specialty Start Date End Date Adalid Turpin NP [address] [facility] [address] [place] [address] PCP - General 02/21/19 04/11/21 documented as of this encounter
--- OUTSIDE RECORDS SUMMARY | 2024-06-10 14:59 | XMS_ITS | Encounter Summary ---
Author Organization [facility] Healthcare Address [address] [place] [address] Care Team Providers Care Hand Painter Name Role Phone Miscellaneous, Not In File Primary Care Provider Unavailable Encounter Details Date Type Department Care Team (Latest Contact Info) Description 04/12/2021 6:40 PM CDT - 04/12/2021 8:59 PM CDT Hospital Encounter [facility] Discharge Disposition: Discharge to home or self care Social History Tobacco Use Types Packs/Day Years Used Date Smoking Tobacco: Smoker, Current Status Unknown Cigarettes Alcohol Use Standard Drinks/Week Comments Yes 0 (1 standard drink = 0.6 oz pur e alcohol) 3 times a week Sex and Gender Information Value Date Recorded Sex Assigned at Not on file 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
--- OUTSIDE RECORDS SUMMARY | 2024-06-10 14:59 | XMS_ITS | Encounter Summary ---
Author Organization [facility] Address [address] [place] [id number] Care Team Providers Care Stripper And Opaquer Apprentice Name Role Phone Adalid Turpin VARNISH MAKER HELPER Primary Care Provider [phone] Reason for Referral * Diagnostic Imaging (Routine) - Closed Specialty Diagnoses / Procedures Referred By Contac t Referred To Contact Diagnoses Low back pain, unspecified back pain laterality, unspecified chronicity, with sciatica presence unspecified Procedures XR Spine Cervical Complete 4 or 5 Views Adalid Turpin NP Phone: tel: fax: [address] [phone] Referral ID Status Reason Start Date Expiration Date Visits Re quested Visits Authorized [id number] Closed 02/21/2019 09/01/2020 1 1 * Diagnostic Imaging (Routine) - Closed Specialty Diagnoses / Procedures Referred By Contac t Referred To Contact Diagnoses Low back pain, unspecified back pain laterality, unspecified chronicity, with sciatica presence unspecified Procedures XR Spine Thoracic 3 Vw Adalid Turpin NP Phone: tel: fax: [address] [phone] Referral ID Status Reason Start Date Expiration Date Visits Re quested Visits Authorized [id number] Closed 02/21/2019 09/01/2020 1 1 * Diagnostic Imaging (Routine) - Closed Specialty Diagnoses / Procedures Referred By Max maldonado Referred To Contact Diagnoses Low back pain, unspecified back pain laterality, unspecified chronicity, with sciatica presence unspecified Procedures XR Spine Lumbar 4 or More Views Adalid Turpin NP Phone: tel: fax: [address] [phone] Referral ID Status Reason Start Date Expiration Date Visits Re quested Visits Authorized [id number] Closed 02/21/2019 09/01/2020 1 1 Reason for Visit * Diagnostic Imaging (Routine) - Closed Specialty Diagnoses / Procedures Referred By Max maldonado Referred To Contact Diagnoses Low back pain, unspecified back pain laterality, unspecified chronicity, with sciatica presence unspecified Procedures XR Spine Cervical Complete 4 or 5 Views Adalid Turpin NP Phone: tel: fax: [address] [phone] Referral ID Status Reason Start Date Expiration Date Visits Re quested Visits Authorized [id number] Closed 02/21/2019 09/01/2020 1 1 Encounter Details Date Type Department Care Team (Latest Contact Info) Description 02/21/2019 9:17 AM CDT - 02/21/2019 11:59 PM CDT Hospital Encounter [facility] [address] [place] [id number] Shayan Wilkes MD [address] [facility] [address] CARLYN Sharma [address] [place] [address] Adalid Turpin NP [address] [facility] CARLYN Sharma [address] [place] [address] Low back pain, unspecified back pain laterality, unspecified chronicity, with sciatica presence unspecified Discharge Disposition: Discharge to home or self care Social History Tobacco Use Types Packs/Day Years Used Date Smoking Tobacco: Smoker, Current Status Unknown Sex and Gender Information Value Date Recorded Sex Assigned at Not on file 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 Gender Identity Not on file Sexual Orientation Not on file documented as of this encounter Discharge Disposition Disposition Code Departure Means Destination Discharge to home or self care documented in this encounter Plan of Treatment Not on file documented as of this encounter Procedures Procedure Name Priority Date/Time Associated Diagnosis Comments XR SPINE LUMBAR COMPLETE 4 OR MORE VIEWS Schedule Routine, Read Routine (OP Routine) 02/21/2019 9:56 AM CDT Low back pain, unspecified back pain laterality, unspecified chronicity, with sciatica presence unspecified XR SPINE THORACIC 3 VIEWS Schedule Routine, Read Routine (OP Routine) 02/21/2019 9:56 AM CDT Low back pain, unspecified back pain laterality, unspecified chronicity, with sciatica presence unspecified XR SPINE CERVICAL COMPLETE 4 OR 5 VW Schedule Routine, Read Routine (OP Routine) 02/21/2019 9:56 AM CDT Low back pain, unspecified back pain laterality, unspecified chronicity, with sciatica presence unspecified documented in this encounter Results * XR Spine Cervical Complete 4 or 5 Views (02/21/2019 9:56 AM CDT) Anatomical Region Laterality Modality Spine N/A Computed Radiogr aphy 02/21/2019 10:1 5 AM CDT Impressions 02/21/2019 10:15 AM CDT MILD DEGENERATIVE CHANGES IN AN OTHERWISE NORMAL CERVICAL SPINE. Electronically signed by: Aneesh Mohr M.D. Narrative 02/21/2019 10:15 AM CDT XR SPINE CERVICAL COMPLETE 4 OR 5 VW HISTORY: Low back pain. ??Neck pain. COMPARISON: None available. FINDINGS: AP, odontoid, lateral, and bilateral oblique projections of the cervical spine demonstrate normal alignment with no evidence of fracture. ??Mild degenerative endplate spurring is present. ??The prevertebral soft tissues are normal. Procedure Note Aneesh Mohr MD - 02/21/2019 XR SPINE CERVICAL COMPLETE 4 OR 5 VW HISTORY: Low back pain. Neck pain. COMPARISON: None available. FINDINGS: AP, odontoid, lateral, and bilateral oblique projections of the cervical spine demonstrate normal alignment with no evidence of fracture. Mild degenerative endplate spurring is present. The prevertebral soft tissues are normal. IMPRESSION: MILD DEGENERATIVE CHANGES IN AN OTHERWISE NORMAL CERVICAL SPINE. Electronically signed by: Aneesh Mohr M.D. Adalid Turpin NP IMG XR PROCEDURES Final Resul t * XR Spine Thoracic 3 Vw (02/21/2019 9:56 AM CDT) Anatomical Region Laterality Modality Spine N/A Computed Radiogr aphy 02/21/2019 10:1 5 AM CDT Impressions 02/21/2019 10:16 AM CDT 1. ??DEGENERATIVE ENDPLATE SPURRING OF THE THORACIC COLUMN. 2. ??MILD DEXTROSCOLIOSIS. Electronically signed by: Aneesh Mohr M.D. Narrative 02/21/2019 10:16 AM CDT XR SPINE THORACIC 3 VIEWS HISTORY: Low back pain. ??Mid back pain. COMPARISON: None available. FINDINGS: AP and lateral projections of the thoracic spine demonstrate mild dextroscoliosis of the thoracic column. ??There is no evidence of fracture or spondylolisthesis. ??Degenerative endplate spurring is present. The soft tissues are normal. Procedure Note Aneesh Mohr MD - 02/21/2019 XR SPINE THORACIC 3 VIEWS HISTORY: Low back pain. Mid back pain. COMPARISON: None available. FINDINGS: AP and lateral projections of the thoracic spine demonstrate mild dextroscoliosis of the thoracic column. There is no evidence of fracture or spondylolisthesis. Degenerative endplate spurring is present. The soft tissues are normal. IMPRESSION: 1. DEGENERATIVE ENDPLATE SPURRING OF THE THORACIC COLUMN. 2. MILD DEXTROSCOLIOSIS. Electronically signed by: Aneesh Mohr M.D. Adalid Turpin NP IMG XR PROCEDURES Final Resul t * XR Spine Lumbar 4 or More Views (02/21/2019 9:56 AM CDT) Anatomical Region Laterality Modality Spine N/A Computed Radiogr aphy 02/21/2019 10:1 7 AM CDT Impressions 02/21/2019 10:17 AM CDT 1. ??MINIMAL LEVOSCOLIOSIS OF THE THORACOLUMBAR JUNCTION. 2. ??MILD DEGENERATIVE ENDPLATE CHANGES. Electronically signed by: Aneesh Mohr M.D. Narrative 02/21/2019 10:17 AM CDT XR SPINE LUMBAR 4 OR MORE VIEWS HISTORY: Low back pain. COMPARISON: None available. FINDINGS: AP, lateral, and bilateral oblique projections of the lumbar spine demonstrate mild levoscoliosis of the thoracolumbar spine. ??There is no evidence of fracture or spondylolisthesis. ??Mild degenerative endplate spurring is present. The soft tissues are normal. Procedure Note Aneesh Mohr MD - 02/21/2019 XR SPINE LUMBAR 4 OR MORE VIEWS HISTORY: Low back pain. COMPARISON: None available. FINDINGS: AP, lateral, and bilateral oblique projections of the lumbar spine demonstrate mild levoscoliosis of the thoracolumbar spine. There is no evidence of fracture or spondylolisthesis. Mild degenerative endplate spurring is present. The soft tissues are normal. IMPRESSION: 1. MINIMAL LEVOSCOLIOSIS OF THE THORACOLUMBAR JUNCTION. 2. MILD DEGENERATIVE ENDPLATE CHANGES. Electronically signed by: Aneesh Mohr M.D. Adalid Turpin NP IMG XR PROCEDURES Final Resul t documented in this encounter Visit Diagnoses Diagnosis Low back pain, unspecified back pain laterality, unspecified chronicity, with sciatica presence unspecified documented in this encounter Care Teams Stripper And Opaquer Apprentice Relationship Specialty Start Date End Date Adalid Turpin NP [address] [facility] [address] [place] [facility] [address] [place] [address] PCP - General 02/21/19 04/11/21 documented as of this encounter
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
--- OUTSIDE RECORDS SUMMARY | 2024-06-10 14:59 | XMS_ITS | Encounter Summary ---
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 [employer] Forms Name Role Phone Miscellaneous, Not In File Primary Care Provider Unavailable Reason for Visit * Reason Comments Leg Pain Encounter Details Date Type Department Care Team (Late st Contact Info) Description 08/30/2021 9:01 PM CDT - 08/30/2021 10:01 PM CDT Emergency [facility] Emergency Department [address] [place] [address] Discharge Disposition: Left without being seen Social History Tobacco Use Types Packs/Day Years Used Date Smoking Tobacco: Smoker, Current Status Unknown Cigarettes Alcohol Use Standard Drinks/Week Comments Yes 0 (1 standard drink = 0.6 oz pur e alcohol) 3 times a week Sex and Gender Information Value Date Recorded Sex Assigned at Not on file Legal Sex Male 2:39 AM [employer] Gender Identity Not on file Sexual Orientation Not on file documented as of this encounter Last Filed Vital Signs Vital Sign Reading Time Taken Comments Blood Pressure 137/80 08/30/2021 9:05 PM CDT Pulse 72 08/30/2021 9:04 PM CDT Temperature 36.5 ??C (97.7 ??F) 08/30/2021 9:04 PM CD T Respiratory Rate 18 08/30/2021 9:04 PM CDT Oxygen Saturation 98% 08/30/2021 9:04 PM CDT Inhaled Oxygen Concentration - - Weight 78 kg (172 lb) 08/30/2021 9:04 PM CDT Height 188 cm (6' 2 ) 08/30/2021 9:04 PM CDT Body Mass Index 22.08 08/30/2021 9:04 PM CDT documented in this encounter Discharge Diagnoses Diagnosis Procedure and treatment not carried out due to patient leaving prior to being seen by health care provider - PROCEDURE AND TREATMENT NOT CARRIED OUT DUE TO PATIENT LEAVING PRIOR TO BEING SEEN BY HEALTH CARE [facility] documented in this encounter Medications at Time of Discharge ondansetron (ZOFRAN) 4 mg tablet Take 1 tablet (4 mg total) by mouth every 6 (six) hours as needed for nausea or vomiting 8 tablet 04/13/2021 03/23/2024 documented as of this encounter Discharge Disposition Disposition Code Departure Means Destination Left without being seen documented in this encounter ED Notes * Zuleyma Goddard RN - 08/30/2021 9:02 PM CDT Pt c/o left leg pain x 2 weeks that has gotten worse. Pain shoots down his leg. Pt took tylenol approx 2 hrs ago without relief. documented in this encounter Plan of Treatment Not on file documented as of this encounter Visit Diagnoses Not on filedocumented in this encounter Care Teams Form Setter [employer] Forms Relationship Specialty Start Date End Date Miscellaneous, Not In File PCP - General 04/13/21 documented as of this encounter
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
--- OUTSIDE RECORDS SUMMARY | 2024-06-10 14:59 | XMS_ITS | Encounter Summary ---
Author Organization [facility] Healthcare Address [address] [place] [address] Care Team Providers Care Ob Nurse Name Role Phone Jimmy Mccormack Primary Care Provider [phone] Reason for Visit * Reason Onset Date Comments Test Results 12/29/2021 Encounter Details Date Type Department Care Team (Late st Contact Info) Description 12/29/2021 Telephone [facility] HealthCare/ Physicians [address] [place] [address] Rosa Holder RN Test Results Social History Tobacco Use Types Packs/Day Years Used Date Smoking Tobacco: Smoker, Current Status Unknown Cigarettes Alcohol Use Standard Drinks/Week Comments Yes 0 (1 standard drink = 0.6 oz pur e alcohol) 3 times a week Sex and Gender Information Value Date Recorded Sex Assigned at Not on file Legal Sex Male 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 * Telephone Encounter - Rosa Holder RN - 12/29/2021 3:11 PM CDT ----- Message from NADIR Farley sent at 12/29/2021 12:22 PM CDT ----- Patient treated with Rocephin and Zithromax. No change in treatment. documented in this encounter Plan of Treatment Not on file documented as of this encounter Visit Diagnoses Not on filedocumented in this encounter Care Teams Ob Nurse Relationship Specialty Start Date End Date Jimmy Mccormack PA [address] [address] PCP - General 08/31/21 01/20/23 documented as of this encounter
--- OUTSIDE RECORDS SUMMARY | 2024-06-10 14:59 | XMS_ITS | Encounter Summary ---
Author Organization [facility] Address [address] [place] [address] Care Team Providers Care Casing Trimmer Name Role Phone No, Physician Primary Care Provider [phone] Encounter Details Date Type Department Care Team (Latest Contact Info) Description 07/05/2017 2:20 AM BUS DRIVER SUPERVISOR - 07/05/2017 11:59 PM BUS DRIVER SUPERVISOR Hospital Encounter [facility] Discharge Disposition: Discharge to home or self care Social History Tobacco Use Types Packs/Day Years Used Date Smoking Tobacco: Smoker, Current Status Unknown Sex and Gender Information Value Date Recorded Sex Assigned at Not on file Legal Sex Male 2:39 AM BUS DRIVER SUPERVISOR Gender Identity Not on file Sexual Orientation Not on file documented as of this encounter Discharge Disposition Disposition Code Departure Means Destination Discharge to home or self care documented in this encounter Plan of Treatment Not on file documented as of this encounter Visit Diagnoses Not on filedocumented in this encounter Care Teams Casing Trimmer Relationship Specialty Start Date End Date No, Physician PCP - General 07/05/17 02/20/19 documented as of this encounter
--- OUTSIDE RECORDS SUMMARY | 2024-06-10 14:59 | XMS_ITS | Encounter Summary ---
Author Organization [facility] Healthcare Address [address] [place] [address] Care Team Providers Care Spanish Literature Professor Name Role Phone Adalid Turpin NP Primary Care Provider [phone] Reason for Visit * Reason Onset Date Comments Test Results 05/27/2020 Encounter Details Date Type Department Care Team ([facility] st Contact Info) Description 05/27/2020 Telephone [facility] HealthCare/ Physicians [address] [place] [address] Jennifer Celeste NP [address] [facility] [address] [place] [address] Test Results Social History Tobacco Use Types Packs/Day Years Used Date Smoking Tobacco: Smoker, Current Status Unknown Cigarettes Alcohol Use Standard Drinks/Week Comments Yes 0 (1 standard drink = 0.6 oz pur e alcohol) 3 times a week Sex and Gender Information Value Date Recorded Sex Assigned at Not on file 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 Unable to leave message, will generateand send letter. ERY STORE COURTESY CLERK documented in this encounter Plan of Treatment Not on file documented as of this encounter Visit Diagnoses Not on filedocumented in this encounter Additional Health Concerns Infection Onset Date Last Indicated Resolved Time COVID: Suspected 05/26/2020 05/26/2020 05/27/2020 1:37 PM GROCERY STORE COURTESY CLERK Respiratory Infection (ANDRA), contact + droplet Comment:Automatically added due to negative COVID-19 result. 05/27/2020 05/27/2020 06/10/2020 3:0 5 AM GROCERY STORE COURTESY CLERK documented as of this encounter Care Teams Spanish Literature Professor Relationship Specialty Start Date End Date Adalid Turpin, VARGAS [address] [facility] [address] [place] [address] PCP - General 02/21/19 04/11/21 documented as of this encounter
--- OUTSIDE RECORDS SUMMARY | 2024-06-10 14:59 | XMS_ITS | Encounter Summary ---
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 Gender Identity Not on file Sexual Orientation Not on file documented as of this encounter Last Filed Vital Signs Vital Sign Reading Time Taken Comments Blood Pressure 136/80 12/26/2021 7:37 PM CDT Pulse 77 12/26/2021 7:37 PM CDT Temperature 37 ??C (98.6 ??F) 12/26/2021 7:37 PM CDT Respiratory Rate 16 12/26/2021 7:37 PM CDT Oxygen Saturation 97% 12/26/2021 7:37 PM CDT Inhaled Oxygen Concentration - - Weight - - Height - - Body Mass Index - - documented in this encounter Discharge Diagnoses Diagnosis Contact with and (suspected) exposure to infections with a predominantly sexual mode of transmission - CONTACT WITH AND (SUSPECTED) EXPOSURE TO INFECTIONS WITH A PREDOMINANTLY SEXUAL MODE OF TRANSMISSION Nicotine dependence, cigarettes, uncomplicated - NICOTINE DEPENDENCE, CIGARETTES, UNCOMPLICATED documented in this encounter Discharge Instructions * Attachments The following attachments cannot be sent through Care Everywhere. * Testing for Suspected STI ([place]) documented in this encounter Medications at Time [...] documented in this encounter ED Notes * Magda Prieto, LEGAL SERVICES MANAGER - 12/26/2021 7:56 PM CDT HPI Chief Complaint Patient presents with ??? Exposure to STD 31-year-old male presents to ED with a at side. Patient states his had her routine STI check with her OB doctor and was told she had chlamydia. Patient denies any penile discharge, dysuria, abdominal pain, rash, fevers, or chills. Patient History: There are no problems to display for this patient. Past Medical History: Diagnosis Date ??? Asthma No past surgical history on file. No family history on file. Social History Tobacco Use ??? Smoking status: Smoker, Current Status Unknown Packs/day: 1.00 ??? Smokeless tobacco: Not on file Substance and Sexual Activity ??? Drug use: Not on file ??? Sexual activity: Not on file Alcohol Use: Not on file Alcohol Use: Not on file Social History Social History Narrative ??? Not on file Review of Systems Review of Systems Constitutional: Negative. Respiratory: Negative. Cardiovascular: Negative. Gastrointestinal: Negative. Genitourinary: Negative. Musculoskeletal: Negative. Neurological: Negative. All other systems reviewed and are negative. Physical Exam ED Triage Vitals [12/26/217] Temp Pulse Resp BP SpO2 37 ??C (98.6 ??F) 77 16 136/80 97 % Temp src Heart Rate Source Patient Position BP Location FiO2 (%) Temporal -- -- -- -- Height Height Method Weight Weight Method -- -- -- -- Physical Exam Vitals and nursing note reviewed. Exam conducted with a rabbit fancier present. Constitutional: General: He is not in acute distress. Appearance: Normal appearance. He is not ill-appearing, toxic-appearing or diaphoretic. HENT: Head: Normocephalic and atraumatic. Right Ear: External ear normal. Left Ear: External ear normal. Eyes: Extraocular Movements: Extraocular movements intact. Conjunctiva/sclera: Conjunctivae normal. Cardiovascular: Rate and Rhythm: Normal rate. Pulses: Normal pulses. Pulmonary: Effort: Pulmonary effort is normal. No respiratory distress. Musculoskeletal: General: Normal range of motion. Cervical [...] Decision Making Differential Diagnosis or Management Options: Urine culture sent to lab and is pending. Patient wastreated prophylactically in department. Critical care performed: No Final diagnoses: Possible exposure to STD Magda Prieto NP 12/26/212002 Cosigned by Sheri Rivera MD at 12/26/2021 8:46 PM CDT * Zuleyma Goddard RN - 12/26/2021 7:35 PM CDT Pt was told today that his girlfriend tested positive for chlamydia. Pt denies any symptoms. documented in this encounter Plan of Treatment Not on file documented as of this encounter Procedures Procedure Name Priority Date/Time Associated Diagnosis Comments N. GONORRHOEAE/C. TRACHOMATIS AMPLIFICATION STAT 12/26/2021 7:49 PM CDT documented in this encounter Results * (ABNORMAL) N. gonorrhoeae/C. trachomatis Amplification Urine (12/26/2021 7:49 PM CDT) C. trachomatis Detected(A) Not detected ELEANOR ABBOTT ([place]LEY) Comment:Testing performed by : [facility], [address] [place] [address]., [id number] N. gonorrhoeae Not detected Not detected ELEANOR ABBOTT ([place]) Comment: Testing performed by the [facility]. This assay detects Chlamydia trachomatis and Neisseria gonorrhoeae by nucleic acid amplification testing (NAAT). This test is approved by the [facility] Food and Drug Administration and the performance characteristics have been verified by the laboratory. The performance characteristics of this test have not been evaluated in women or individuals less than 16 years of age. Testing performed by: [facility], [address] [place] [address]., [id number] Urine (None) 12/26/2021 7:49 PM CDT 12/29/2021 11:09 AM CDT Sheri Rivera MD LAB MICROBIOLOGY - GENERAL ORDERABLES Final Result ELEANOR ABBOTT ([place]) [facility] Department of Laboratories [place], [place] [id number] documented in this encounter Visit Diagnoses Diagnosis Possible exposure to STD- Primary documented in this encounter Administered Medications Inactive Administered Medications - up to 3 most recent administrations Medication Order MAR Action Action Date Dose Rate Site azithromycin (ZITHROMAX) tablet 1,000 mg 1,000 mg, oral, Once, On Wed12/26/21 at 1955, For 1 dose, Indications: Sexually Transmitted InfectionIndications:Sexu ally Transmitted Infection Given 12/26/2021 8:06 PM CDT 1,000 mg cefTRIAXone (ROCEPHIN) 250 mg/mL intramuscular injection 500 mg 500 mg, intramuscular, Once, On Wed12/26/21 at 1954, For 1 dose, Dilute vial with 1.8 mL of sterile water for a concentration of 250 mg/mL., Indications: Sexually Transmitted InfectionIndications:Sexu ally Transmitted Infection Given 12/26/2021 8:07 PM CDT 500 mg Right Dorsogluteal/Butt ock documented in this encounter Active and Recently Administered Medications Times are shown in CDT. Scheduled Medication Order 12/24/2021 12/25/2021 12/26/2021 azithromycin (ZITHROMAX) tablet 1,000 mg (COMPLETED) 1,000 mg, oral, Once, On Wed12/26/21 at 1954, For 1 dose, Indications: Sexually Transmitted Infection 2005 (Given - Provid er: Radha oSria RN) cefTRIAXone (ROCEPHIN) 250 mg/mL intramuscular injection 500 mg (COMPLETED) 500 mg, intramuscular, Once, On Wed12/26/21 at 195, For 1 dose, Dilute vial with 1.8 mL of sterile water for a concentration of 250 mg/mL., Indications: Sexually Transmitted Infection 2006 (Given - Provid er: Radha Soria RN) documented in this encounter Care Teams Construction Crew Member Relationship Specialty Start Date End Date Jimmy Mccormack PA [address] [address] PCP - General 08/31/21 01/20/23 documented as of this encounter
--- OUTSIDE RECORDS SUMMARY | 2024-06-10 15:00 | XMS_ITS | Encounter Summary ---
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
--- OUTSIDE RECORDS SUMMARY | 2024-06-10 15:00 | XMS_ITS | Encounter Summary ---
Author Organization [facility] Healthcare Address [address] [place] [address] Care Team Providers Care [facility] Name Role Phone Unavailable Primary Care Provider Unavailabl e Encounter Details Date Type Department Care Team (Late st Contact Info) Description 03/27/2012 5:21 AM CDT - 03/27/2012 6:45 AM CDT Hospital Encounter [facility] Adolfo Joel MD [address] [facility] [address] [address] [place] [address] Sprain of hand; Contusion of wrist; Other accidents; Activities involving wrestling Social History Tobacco Use Types Packs/Day Years Used Date Smoking Tobacco: Never Assessed Sex and Gender Information Value Date Recorded Sex Assigned at Not on file 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
--- OUTSIDE RECORDS SUMMARY | 2024-06-10 15:00 | XMS_ITS | Encounter Summary ---
Author Organization [facility] Healthcare Address [address] [place] [id number] Care Team Providers Care Associate Pastor Name Role Phone Unavailable Primary Care Provider Unavailabl e Encounter Details Date Type Department Care Team (Late st Contact Info) Description 03/01/2008 6:23 PM CDT - 03/01/2008 8:25 PM CDT Hospital Encounter [facility] Jose Dukes MD [address] [place] [address] Grabiel Huber Social History Tobacco Use Types Packs/Day Years Used Date Smoking Tobacco: Never Assessed Sex and Gender Information Value Date Recorded Sex Assigned at Not on file 

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
--- OUTSIDE RECORDS SUMMARY | 2024-06-10 15:00 | XMS_ITS | Encounter Summary ---
Author Organization [facility] Facility Care Team Providers Care Preschool Teacher'S Assistant Name Role Phone Unavailable Primary Care Provider Unavailabl e Encounter Details Date Type Department Care Team (Late st Contact Info) Description 08/09/2008 3:08 PM LANDSCAPE GARDENER - 08/09/2008 11:59 PM LANDSCAPE GARDENER Hospital Encounter [facility] Martha, Alejandro Tolentino MD [address] [place] [address] Curvature of spine Social History Tobacco Use Types Packs/Day Years Used Date Smoking Tobacco: Never Assessed Sex and Gender Information Value Date Recorded Sex Assigned at Not on file Legal Sex Male 2:39 AM LANDSCAPE GARDENER Gender Identity Not on file Sexual Orientation Not on file documented as of this encounter Plan of Treatment Not on file documented as of this encounter Visit Diagnoses Diagnosis Curvature of spine documented in this encounter
--- OUTSIDE RECORDS SUMMARY | 2024-06-10 15:00 | XMS_ITS | Encounter Summary ---
Author Organization [facility] Healthcare Address [address] [place] [address] Care Team Providers Care Uniformer Name Role Phone Unavailable Primary Care Provider Unavailabl e Encounter Details Date Type Department Care Team (Late st Contact Info) Description 07/18/2008 4:26 PM METER MAINTENANCE PERSON - 07/18/2008 11:59 PM METER MAINTENANCE PERSON Hospital Encounter [facility] Mariam Millard MD [address] [address] Scoliosis (and kyphoscoliosis), idiopathic Social History Tobacco Use Types Packs/Day Years Used Date Smoking Tobacco: Never Assessed Sex and Gender Information Value Date Recorded Sex Assigned at Not on file Legal Sex Male 2:39 AM METER MAINTENANCE PERSON Gender Identity Not on file Sexual Orientation Not on file documented as of this encounter Plan of Treatment Not on file documented as of this encounter Visit Diagnoses Diagnosis Scoliosis (and kyphoscoliosis), idiopathic documented in this encounter
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
--- OUTSIDE RECORDS SUMMARY | 2024-06-10 15:00 | XMS_ITS | Encounter Summary ---
Author Organization [facility] Healthcare Address [address] [place] [address] Care Team Providers Care Media Liaison Officer Name Role Phone Unavailable Primary Care Provider Unavailabl e Encounter Details Date Type Department Care Team (Late st Contact Info) Description 07/29/2006 1:51 PM PETAL CUTTER - 07/29/2006 11:59 PM PETAL CUTTER Hospital Encounter [facility]INCONV Grabiel Huber Social History Tobacco Use Types Packs/Day Years Used Date Smoking Tobacco: Never Assessed Sex and Gender Information Value Date Recorded Sex Assigned at Not on file Legal Sex Male 2:39 AM PETAL CUTTER Gender Identity Not on file Sexual Orientation Not on file documented as of this encounter Plan of Treatment Not on file documented as of this encounter Visit Diagnoses Not on filedocumented in this encounter
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
--- OUTSIDE RECORDS SUMMARY | 2024-06-10 15:00 | XMS_ITS | Encounter Summary ---
Author Organization [facility] Healthcare Address [address] [place] [address] Care Team Providers Care Veneer Grader Name Role Phone Unavailable Primary Care Provider Unavailabl e Encounter Details Date Type Department Care Team (Late st Contact Info) Description 03/08/2007 4:31 PM CDT - 03/08/2007 11:59 PM CDT Hospital Encounter [facility] Shan Ceballos MD [address] [place] [address] [place] [address] Social History Tobacco Use Types Packs/Day Years Used Date Smoking Tobacco: Never Assessed Sex and Gender Information Value Date Recorded Sex Assigned at Not on file 

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
--- OUTSIDE RECORDS SUMMARY | 2024-06-10 15:04 | XMS_ITS ---
Author Organization [facility] Address [address] [place] [address] Care Team Providers Care Gas Jockey Name Role Phone Rekha Em Primary Care Provider [phone] REASON FOR VISIT Appt / Referral Social History Sex Assigned At : Social History Observation Description Sex Assigned At Male Encounters Encounter Location Date Provider Diagnosis [place] [address], [place] [address] 03/30/2024 Rekha Em Plan Of Treatment No Information Progress Notes * Paul JUANDOB:1990 ([age] yo M)Acc No.[id number]:03/30/2024 Patient:?Paul JUAN :1990???Age:34 Y???Sex:Male Address:[address] [place] [address] * true * Date:? Generated for Bethany ambrose/Izabella/eTransmitting on:?06/10/2024 03:04 PM DISTRIBUTED ENERGY SYSTEMS CONSULTANT
--- OUTSIDE RECORDS SUMMARY | 2024-06-10 15:04 | XMS_ITS ---
Author Organization [facility] Address [address] [place] [address] Care Team Providers Care Solderer Assembly Repair Name Role Phone Rekha Em Primary Care Provider [phone] Derrell Merritt [phone] REASON FOR VISIT follow up Medications Medication SIG (Take, Route, Frequency, Duration) Notes Start Date End Date Status hydrOXYzine HCl 25 MG TAKE 1 TABLET BY M OUTH TWICE A DAY NEEDED FOR 30 DAYS for 30 Active FLUoxetine HCl 10 MG TAKE 1 CAPSULE BY M OUTH EVERY DAY FOR 30 DAYS for 30 Active Vitamin D (Ergocalciferol) 67462 UNIT 1 capsule once a week Orally for 30 days 05/21/2023 Active Omeprazole 20 MG TAKE 1 CAPSULE BY MO UTH EVERY DAY 30 MINUTES BEFORE MORNING MEAL FOR 30 DAYS for 30 Active Nicotine Gum 4mg 4 MG 1 piece up to ever y hour as needed for cravings Mouth/Throat up to 20 pieces per day for 28 days 01/21/2023 04/14/2023 Active Social History Sex Assigned At : Social History Observation Description Sex Assigned At Male Encounters Encounter Location Date Provider Diagnosis [address] [place] [address] 02/09/2023 Derrell Merritt Plan Of Treatment No Information Progress Notes * Paul JUANDOB:1990 ([age] yo M)Acc No.[id number]:02/09/2023 UNLOCKED PROGRESS NOTE Patient:?Paul JUAN Provider:?DERRELL MERRITT, MSN, AIR MARSHAL-C, PMHNP -BC :1990???Age:32 Y???Sex:Male Sudarshan e:02/09/2023 Address:[address] [place] [address] , [address] [id number] Pcp:Rekha Em Subjective: * Chief Complaints: * ???1. Follow up. * Medical History:? * Medications:?Taking Vitamin D (Ergocalciferol) 98472 UNIT Capsule 1 capsule once a week Orally , stop date 05/21/2023, Taking hydrOXYzine HCl 25 MG Tablet TAKE 1 TABLET BY MOUTH TWICE A DAY NEEDED FOR 30 DAYS , Taking FLUoxetine HCl 10 MG Capsule TAKE 1 CAPSULE BY MOUTH EVERY DAY FOR 30 DAYS , Taking Omeprazole 20 MG Capsule Delayed Release TAKE 1 CAPSULE BY MOUTH EVERY DAY 30 MINUTES BEFORE MORNING MEAL FOR 30 DAYS , Taking Nicotine Gum 4mg 4 MG Gum 1 piece up to every hour as needed for cravings Mouth/Throat up to 20 pieces per day , stop date 04/14/2023 Objective: * Vitals:? Assessment: Plan: * Treatment: * * Electronic signature of Vashti Merritt on 06/10/2024 at 03:04 PM HOSPICE CLINICAL MARKETER Sign off status: Pending * Provider:?DERRELL MERRITT, MSN, AIR MARSHAL-C, PMHNP-BC Date:?02/09/2023 Generated for Bethany ambrose/Izabella/Shantanu on:?06/10/2024 03:04 PM HOSPICE CLINICAL MARKETER
--- OUTSIDE RECORDS SUMMARY | 2024-06-10 15:05 | XMS_ITS ---
Author Organization [facility] Address [address] [place] [address] Care Team Providers Care Sheeter Helper Name Role Phone Rekha Em Primary Care Provider [phone] Letty Merritt [phone] REASON FOR VISIT FMLA Social History Sex Assigned At : Social History Observation Description Sex Assigned At Male Encounters Encounter Location Date Provider Diagnosis [place] [address] [place] [address] 01/25/2023 Letty Merritt Plan Of Treatment No Information Progress Notes * YESSICA PaulDOB:1990 ([age] yo M)Acc No.[id number]:01/25/2023 Patient:?Paul Cortez :1990???Age:32 Y???Sex:Male Address:[address] [place] [address] Subjective: * Chief Complaints: * ???FMLA * Medical History:? * Surgical History:? * Hospitalization/Major Diagno stic Procedure:? * Medications:? Objective: Assessment: Plan: * Treatment: * Procedure Codes:? * true * Date:? Generated for Bethany ambrose/Izabella/eTransmitting on:?06/10/2024 03:04 PM SYSTEM ENGINEER
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
--- OUTSIDE RECORDS SUMMARY | 2024-06-10 15:08 | XMS_ITS | Encounter Summary ---
Author Organization [facility] Healthcare Address [address] [place] [address] Care Team Providers Care Research And Development Manager Name Role Phone Jimmy Mccormack Primary Care Provider [phone] Encounter Details Date Type Department Care Team (Latest Contact Info) Description 08/17/2022 11:57 PM CDT - 08/17/2022 11:59 PM CDT Hospital Encounter [facility] [...] on file Legal Sex Male 2:39 AM INDEPENDENT LIVING INSTRUCTOR Gender Identity Not on file Sexual [...] on filedocumented in this encounter Care Teams Research And Development Manager Relationship Specialty Start Date End Date Jimmy Mccormack PA [address] [address] PCP - General 08/31/21 01/20/23 documented as of this encounter
== END 2024-06-03 12:06 | disposition home or self-care (01) ==
PROVIDERS: Emergency Provider Nurse Practitioner Family
DX: J06.9 Acute upper respiratory infection, unspecified (principal); R05.9 Cough, unspecified; Z20.822 Contact with and (suspected) exposure to COVID-19; F17.210 Nicotine dependence, cigarettes, uncomplicated; J45.909 Unspecified asthma, uncomplicated
CPT/HCPCS: 87426; 87804; 99213; G0463

== ENCOUNTER 2024-07-27 17:06 | Emergency (ER) | payer OTHER, SELFPAY ==
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
--- OUTSIDE RECORDS SUMMARY | 2024-07-27 17:08 | XMS_ITS | Encounter Summary ---
Author Organization [facility] Address [address] [place] [address] Phone Care Team Providers Care Tubing Mill Operator Name Role Phone Jimmy Mccormack PAC Primary Care Provider U navailable Provider, None Primary Care Provider Unavailabl e Reason for Visit * Reason Comments Medication Refill Encounter Details Date Type Department Care Team (Late st Contact Info) Description 09/07/2021 Refill [facility] - Primary Care - [place] [address] [place] [address] Jimmy Mccormack, PAC Medication Refill [...] Dept 08/29/21 Office Visit Jimmy Mccormack PAC [facility] 05/12/21 Office Visit Jimmy Mccormack PAC [facility] Showing recent visits within past 365 days [...] documented as of this encounter Care Teams Tubing Mill Operator Relationship Specialty Start Date End Date Jimmy Mccormack PAC PCP - General Physician Video Tape Transferrer 05/12/21 03/22/22 Provider, None [place] PCP - General 03/23/22 documented as of this encounter
--- OUTSIDE RECORDS SUMMARY | 2024-07-27 17:08 | XMS_ITS ---
Author Organization [facility] Address [address] [place] [address] Care Team Providers Care Cto Name Role Phone Rekha Em Primary Care Provider REASON FOR VISIT Appt / Referral Social History Sex Assigned At : Social History Observation Description Sex Assigned At Male Encounters Encounter Location Date Provider Diagnosis [place] [address], [place] [address] 03/30/2024 Rekha Em Plan Of Treatment No Information Progress Notes * Paul JUANDOB:1990 ([age] yo M)Acc No.[id number]:03/30/2024 Patient: Paul JOEL :1990 A ge:34 Y S ex:Male Address:[address] [address] * true * Date: Generated for Bethany ambrose/Izabella/eTransmitting on: 0 07/27/2024 05:08 PM MONOTYPIST
--- OUTSIDE RECORDS SUMMARY | 2024-07-27 17:08 | XMS_ITS ---
Author Organization [facility] Address [address] [place] [address] Care Team Providers Care Needle Loom Operator Helper Name Role Phone Rekha Em Primary Care Provider [phone] Letty Merritt [phone] REASON FOR VISIT follow up Medications Medication SIG (Take, Route, Frequency, Duration) Notes Start Date End Date Status hydrOXYzine HCl 25 MG TAKE 1 TABLET BY M OUTH TWICE A DAY NEEDED FOR 30 DAYS for 30 Active FLUoxetine HCl 10 MG TAKE 1 CAPSULE BY M OUTH EVERY DAY FOR 30 DAYS for 30 Active Vitamin D (Ergocalciferol) 73080 UNIT 1 capsule once a week Orally [...] Male Encounters Encounter Location Date Provider Diagnosis [address] [place] [address] 02/09/2023 Letty Merritt Plan Of Treatment No Information Progress Notes * aPul JUANDOB:1990 ([age] yo M)Acc No.[id number]:02/09/2023 UNLOCKED PROGRESS NOTE Patient: Paul JOEL Provider: Cathi MERRITT, MSN, SED MID[employer]LE SCHOOL TEACHER-C, PMHNP-BC :1990 A ge:32 Y S ex:Male Date:02/09/2023 Address:[address] [place] [address], [place]-[address] Pcp:Rekha Em Subjective: * Chief Complaints: * 1 . Follow up. * Medical History: * Medications: T aking Vitamin D (Ergocalciferol) 87443 UNIT Capsule 1 capsule once a week [...] day , stop date 04/14/2023 Objective: * Vitals: Assessment: Plan: * Treatment: * * Electronic signature of Vashti Merritt on 07/27/2024 at 05:08 PM SUPERVISOR TYPESETTING Sign off status: Pending * Provider: Cathi MERRITT, MSN, [employer] TE[employer]ER-C, PMHNP-BC Date: 0 02/09/2023 Generated for Bethany ambrose/Izabella/Shantanu on: 0 07/27/2024 05:08 PM SUPERVISOR TYPESETTING
--- OUTSIDE RECORDS SUMMARY | 2024-07-27 17:08 | XMS_ITS | Clinical Summary ---
Author Organization [facility] Address [address] [place] [address] Phone Care Team Providers Care Huc Ob Name Role Phone Provider, None Primary Care [...] 93 08/29/2021 8:14 AM CDT Temperature 36.7 C (98 F) 08/29/2021 8:14 AM CDT Respiratory Rate 16 [...] patient's age to complete this topic Insurance [facility] Care Teams Huc Ob Relationship Specialty Start Date End Date Provider, None [place] PCP - General 03/23/22
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
--- OUTSIDE RECORDS SUMMARY | 2024-07-27 17:08 | XMS_ITS ---
Author Organization [facility] Address [address] [place] [address] Care Team Providers Care Board Of Education Secretary Name Role Phone Rekha Em Primary Care Provider [phone] Letty Merritt [phone] REASON FOR VISIT FMLA Social History Sex Assigned At : Social History Observation Description Sex Assigned At Male Encounters Encounter Location Date Provider Diagnosis [place] [place] [address] 01/25/2023 Letty Merritt Plan Of Treatment No Information Progress Notes * Paul JUANDOB:1990 ([age] yo M)Acc No.[id number]:01/25/2023 Patient: Paul [place] :1990 A ge:32 Y S ex:Male Address:[address] [address] Subjective: * Chief Complaints: * F MLA * Medical History: * Surgical History: * Hospitalization/Major Diagno stic Procedure: * Medications: Objective: Assessment: Plan: * Treatment: * Procedure Codes: * true * Date: Generated for Printi ng/Faxing/eTransmitting on: 0 07/27/2024 05:08 PM DIRECTOR TELEMETRY
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
[2024-07-27 17:21] VITALS: BP 127/86; PULSE 118; RESP 16; TEMP 36.8; O2SAT 99
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
[2024-07-27 17:43] LABS: EDINFLUASCREEN Negative (Negative); EDINFLUBSCREEN Negative (Negative)
[2024-07-27 17:44] LABS: EDCOVIDSCREEN Negative (Negative)
== END 2024-07-27 17:48 | disposition home or self-care (01) ==
PROVIDERS: Emergency Provider Nurse Practitioner Family
DX: B34.9 Viral infection, unspecified (principal); Z20.822 Contact with and (suspected) exposure to COVID-19; F17.210 Nicotine dependence, cigarettes, uncomplicated; J45.909 Unspecified asthma, uncomplicated
CPT/HCPCS: 87426; 87804; 99213; G0463